=== PATIENT | female | born 1950 | race Caucasian/White ===

== ENCOUNTER → 2016-09-06 | Outpatient (CLI) | payer MEDICARE, BC ==
--- NOTE | 2016-09-07 10:18 | MM ---
Reason for exam: screening (asymptomatic). Last mammogram was performed 1 year and 1 month ago. History: Patient is postmenopausal and is nulliparous. 2 excisional biopsies of the left breast. 2 excisional biopsies of the right breast. Took estrogen for 7 years beginning at age 31. Physical Findings: A clinical breast exam by your physician is recommended on an annual basis and results should be correlated with mammographic findings. MG 3D Screening Mammo W/Cad Bilateral CC and MLO view(s) were taken. Prior study comparison: August 16, 2015, bilateral MG screening mammo w CAD. July 21, 2014, bilateral MG screening mammo w CAD. The breast tissue is heterogeneously dense. This may lower the sensitivity of mammography. Finding: There are typically benign calcifications. There is no discrete abnormality. No significant changes in finding since August 16, 2015 and July 21, 2014. ASSESSMENT: Benign, BI-RAD 2 RECOMMENDATION: Routine screening mammogram of both breasts in 1 year.
== END | disposition home or self-care (01) ==
LOC: RADMAMWWP 10:03
PROVIDERS: ATTEND Internal Medicine Critical Care Medicine
DX: Z12.31 Encounter for screening mammogram for malignant neoplasm of breast (principal)
CPT/HCPCS: 77052; 77063; G0202

== ENCOUNTER → 2016-11-07 | Outpatient (CLI) | payer MEDICARE, BC ==
[2016-11-07 10:04] LABS: CH 31.7; CHCM 33.7; HCT 41.1 % (34.0-46.0); HDW 2.89; HGB 13.9 gm/dL (11.4-16.0); MCH 32.1 pg (25.0-35.0); MCHC 33.9 g/dL (31.0-37.0); MCV 94.4 fL (80.0-100.0); Mean Platelet Volume 7.8; RBC 4.35 m/uL (3.80-5.40); RDW 14.6 % (11.5-15.5)
[2016-11-07 10:20] LABS: ALT 23 U/L (9-52); AST 22 U/L (14-36); Alkaline Phosphatase 70 U/L (38-126); Anion Gap 12 mmol/L; Blood Urea Nitrogen 20 mg/dL (7-17); Calcium 9.9 mg/dL (8.4-10.2); Carbon Dioxide 27 mmol/L (22-30); Chloride 106 mmol/L (98-107); Cholesterol 213 mg/dL (<200); Glucose 87 mg/dL (74-99); HDL Cholesterol 61 mg/dL (40-60); Non-African American GFR(MDRD) >60 (>60 ml/min/1.73 sqM); Potassium 4.5 mmol/L (3.5-5.1); Sodium 145 mmol/L (137-145); Total Bilirubin 0.9 mg/dL (0.2-1.3); Total Protein 6.6 g/dL (6.3-8.2); Triglycerides 130 mg/dL (<150)
[2016-11-07 11:57] LABS: Hemoglobin A1C 4.8 % (4.2-6.1)
== END ==
LOC: LABWHC1 09:20
PROVIDERS: ATTEND Internal Medicine Critical Care Medicine
DX: D86.9 Sarcoidosis, unspecified (principal)
CPT/HCPCS: 36415; 80053; 80061; 82306; 83036; 84439; 84443; 85027

== ENCOUNTER → 2017-12-25 | Outpatient (CLI) | payer MEDICARE, BC ==
--- NOTE | 2017-12-26 08:33 | MM ---
Reason for exam: screening (asymptomatic). Last mammogram was performed 1 year and 4 months ago. History: Patient is postmenopausal and is nulliparous. 2 excisional biopsies of the left breast. 2 excisional biopsies of the right breast. Took estrogen for 7 years beginning at age 31. Physical Findings: A clinical breast exam by your physician is recommended on an annual basis and results should be correlated with mammographic findings. MG 3D Screening Mammo W/Cad Bilateral CC and MLO view(s) were taken. Prior study comparison: September 06, 2016, bilateral MG 3d screening mammo w/cad. August 16, 2015, bilateral MG screening mammo w CAD. The breast tissue is heterogeneously dense. This may lower the sensitivity of mammography. Benign calcifications bilaterally. ASSESSMENT: Benign, BI-RAD 2 RECOMMENDATION: Routine screening mammogram of both breasts in 1 year.
== END | disposition home or self-care (01) ==
LOC: RADMAMWWP 12:40
PROVIDERS: ATTEND Internal Medicine Critical Care Medicine
DX: Z12.31 Encounter for screening mammogram for malignant neoplasm of breast (principal)
CPT/HCPCS: 77063; 77067

== ENCOUNTER → 2019-02-20 | Outpatient (CLI) | payer MEDICARE, BC ==
--- NOTE | 2019-02-20 16:45 | CT ---
EXAMINATION TYPE: CT brain wo con DATE OF EXAM: 02/20/2019 COMPARISON: 05/15/2016 HISTORY: CVA. CT DLP: 1051.4 mGycm Automated exposure control for dose reduction was used. FINDINGS: There is mild cerebral cortical atrophy. There is no mass effect nor midline shift. There is no sign of intracranial hemorrhage. Calvarium is intact. There is mild patchy hypodensity in the cerebral whi te matter. IMPRESSION: MILD ATROPHY. CHRONIC SMALL VESSEL ISCHEMIA. NO SIGNIFICANT CHANGE COMPARED TO OLD EXAM.
== END | disposition home or self-care (01) ==
LOC: RADCTMAIN 16:03
PROVIDERS: ATTEND Internal Medicine Critical Care Medicine
DX: G31.9 Degenerative disease of nervous system, unspecified (principal); I67.82 Cerebral ischemia
CPT/HCPCS: 70450

== ENCOUNTER → 2019-04-28 | Outpatient (CLI) | payer MEDICARE, BC ==
[2019-04-28 09:19] LABS: Basophils % (A) 1 %; Eosinophils # (A) 0.2 k/uL (0-0.7); Eosinophils % (A) 4 %; HCT 40.4 % (34.0-46.0); HGB 13.6 gm/dL (11.4-16.0); Lymphocytes # (A) 0.8 k/uL (1.0-4.8); Lymphocytes % (A) 14 %; MCH 34.4 pg (25.0-35.0); MCHC 33.7 g/dL (31.0-37.0); MCV 102.2 fL (80.0-100.0); Macrocytosis Slight; Mean Platelet Volume 7.6; Monocytes # (A) 0.3 k/uL (0-1.0); Monocytes % (A) 6 %; Neutrophils % (A) 74 %; Platelet Count 205 k/uL (150-450); RBC 3.95 m/uL (3.80-5.40); RDW 15.2 % (11.5-15.5); WBC 5.4 k/uL (3.8-10.6)
[2019-04-28 17:53] LABS: African American GFR (CKD) 87.2 (60.0-200.0); Albumin 3.9 g/dL (3.80-4.90); Albumin/Globulin Ratio 2.29 (1.60-3.17); Anion Gap 6.6 mmol/L (4.00-12.00); Calcium 9.6 mg/dL (8.7-10.3); Carbon Dioxide 30.4 mmol/L (21.6-31.8); Chol/HDL Ratio 4.42; Globulin 1.7 g/dL (1.6-3.3); LDL Cholesterol,Calculated 124.2 mg/dL (0.0-131.0); Potassium 4.4 mmol/L (3.5-5.5); Total Bilirubin 0.9 mg/dL (0.2-1.2); Total Protein 5.6 g/dL (6.2-8.2); VLDL Calculation 29.8 mg/dL (5.00-40.00)
== END | disposition home or self-care (01) ==
LOC: LABWHC1 07:59
PROVIDERS: ATTEND Internal Medicine Critical Care Medicine
DX: M81.0 Age-related osteoporosis without current pathological fracture (principal); L40.50 Arthropathic psoriasis, unspecified; D86.9 Sarcoidosis, unspecified; M45.9 Ankylosing spondylitis of unspecified sites in spine
CPT/HCPCS: 36415; 80053; 80061; 85025

== ENCOUNTER 2020-02-24 17:56 | Inpatient (IN) | payer MEDICARE, BC ==
[2020-02-24] MEDS ORDERED: diphenhydrAMINE 50 MG/ML 1 ML VIAL IVP STA (19:01)
[2020-02-24] MEDS ORDERED: FAMOTIDINE 20 MG/2 ML VIAL IV STA (19:01)
[2020-02-24] MEDS ORDERED: methylPREDNISolone SOD SUCCI 125 MG/2 ML VIAL IV STA (19:01)
[2020-02-24] MEDS ORDERED: ALBUTEROL NEBULIZED 2.5 MG/3 ML INHALATION STA (19:01)
[2020-02-24 19:19] LABS: ALT 14 U/L (4-34); AST 35 U/L (14-36); African American GFR (CKD) >90 (>60 ml/min/1.73 sqM); Albumin 3.8 g/dL (3.5-5.0); Alkaline Phosphatase 93 U/L (38-126); Anion Gap 10 mmol/L; Blood Urea Nitrogen 16 mg/dL (7-17); Calcium 9.7 mg/dL (8.4-10.2); Carbon Dioxide 24 mmol/L (22-30); Chloride 103 mmol/L (98-107); Creatine Kinase 33 U/L (30-135); Glucose 119 mg/dL (74-99); Magnesium 2.2 mg/dL (1.6-2.3); Non-African American GFR(CKD) 88 (>60 ml/min/1.73 sqM); Potassium 4.4 mmol/L (3.5-5.1); Sodium 137 mmol/L (137-145); Total Bilirubin 0.8 mg/dL (0.2-1.3); Total Protein 6.7 g/dL (6.3-8.2)
[2020-02-24 19:21] LABS: Basophils # (A) 0.1 k/uL (0-0.2); Basophils % (A) 1 %; Eosinophils # (A) 0.2 k/uL (0-0.7); Eosinophils % (A) 3 %; HCT 41.4 % (34.0-46.0); HGB 12.9 gm/dL (11.4-16.0); Lymphocytes # (A) 0.6 k/uL (1.0-4.8); Lymphocytes % (A) 8 %; MCH 32.4 pg (25.0-35.0); MCV 104.4 fL (80.0-100.0); Macrocytosis Slight; Mean Platelet Volume 8.4; Monocytes # (A) 0.4 k/uL (0-1.0); Monocytes % (A) 6 %; Neutrophils # (A) 5.8 k/uL (1.3-7.7); Neutrophils % (A) 81 %; Platelet Count 198 k/uL (150-450); RBC 3.97 m/uL (3.80-5.40); RDW 13.7 % (11.5-15.5); WBC 7.2 k/uL (3.8-10.6)
[2020-02-24 19:26] LABS: Partial Thromboplastin Time 26.1 sec (22.0-30.0); Prothrombin Time 10.6 sec (9.0-12.0)
--- NOTE | 2020-02-24 19:32 | XR ---
EXAMINATION TYPE: XR chest 2V DATE OF EXAM: 02/24/2020 COMPARISON: 12/12/2016 HISTORY: Cough difficulty breathing TECHNIQUE: FINDINGS: Heart is slightly enlarged. There is pulmonary vascular congestion and blunting of costophr enic angles. There is some pulmonary interstitial edema. Bony thorax is intact. IMPRESSION: Congestive heart failure with pleural effusions appears new compared to old exam.
[2020-02-24 19:42] LABS: D-Dimer 1.04 mg/L FEU (<0.60)
--- NOTE | 2020-02-24 19:56 | ED ---
SOB HPI - General Chief Complaint: Shortness of Breath Stated Complaint: poss allergic rxn Time Seen by Provider: 02/24/20 18:24 Source: patient Mode of arrival: ambulatory Limitations: no limitations - History of Present Illness Initial Comments: The patient is a 69-year-old female presents to the emergency department with reported possible acute ALLERGIC reaction. She states that she has migraine headaches and sees Dr. Fall. He prescribes her [place]. She states that last night she was having a headache and therefore took a [place]. Around 3 AM she had acute onset of shortness of breath. She thought it was secondary to medication reaction and therefore took Benadryl. She woke this morning and continued to be short of breath. She called the pharmacy as this was the first tablet of [place] that she had taken from this prescription. Pharmacist had told her that the [place] had a dye on it and because of her dye ALLERGY she was having an ALLERGIC reaction. Indicated that she did go to the emergency room for further evaluation. Patient denies rash or the sensation that her airway is closing off. Admits to a pressure in her chest. Denies previous history of cardiac disease or pulmonary disease. Does admit to a history of a "blood clot" in her left foot several years ago however did not require any anticoagulation. She denies anaphylaxis to any of her medications listed on her ALLERGY list. There are no other alleviating, precipitating or modifying factors - Related Data Home Medications Medication Instructions Recorded Confirmed Diazepam [Valium] 10 mg PO Q8H PRN 05/15/16 02/24/20 HYDROcodone/APAP 7.5-325MG [[place] 1 - 2 tab PO Q6H PRN 05/15/16 02/24/20 7.5-325] diphenhydrAMINE [Benadryl] 25 mg PO Q4H PRN 02/24/20 02/24/20 Allergies Allergy/AdvReac Type Severity Reaction Status Date / Time egg Allergy Severe Shortness Verified 02/27/20 08:58 of Breath acetaminophen Allergy Unknown Verified 02/24/20 18:48 [From Darvocet-N] adhesive tape Allergy Unknown Verified 02/24/20 18:48 ampicillin Allergy Unknown Verified 02/24/20 18:48 cefaclor [From Ceclor] Allergy Unknown Verified 02/24/20 18:48 cefuroxime axetil Allergy Unknown Verified 02/24/20 18:48 [From Ceftin] ciprofloxacin [From Cipro] Allergy Unknown Verified 02/24/20 18:48 ciprofloxacin HCl Allergy Unknown Verified 02/24/20 18:48 [From Cipro] clarithromycin [From Biaxin] Allergy Unknown Verified 02/24/20 18:48 codeine phosphate Allergy Unknown Verified 02/24/20 18:48 [From Tylenol-Codeine #3] erythromycin base Allergy Unknown Verified 02/24/20 18:48 etodolac [From Lodine] Allergy Unknown Verified 02/24/20 18:48 fluticasone propionate Allergy Unknown Verified 02/24/20 18:48 [From Flovent Diskus] hydroxychloroquine sulfate Allergy Unknown Verified 02/24/20 18:48 [From Plaquenil] ibuprofen [From Motrin] Allergy Unknown Verified 02/24/20 18:48 indapamide [From Lozol] Allergy Unknown Verified 02/24/20 18:48 infliximab [From Remicade] Allergy Unknown Verified 02/24/20 18:48 Influenza Virus Vaccines Allergy Unknown Verified 02/24/20 18:48 ketorolac tromethamine Allergy Unknown Verified 02/24/20 18:48 [From Toradol] lanolin Allergy Unknown Verified 02/24/20 18:48 lansoprazole [From Prevacid] Allergy Unknown Verified 02/24/20 18:48 levofloxacin [From Levaquin] Allergy Unknown Verified 02/24/20 18:48 loracarbef [From Lorabid] Allergy Unknown Verified 02/24/20 18:48 lorazepam [From Ativan] Allergy Unknown Verified 02/24/20 18:48 methotrexate Allergy Unknown Verified 02/24/20 18:48 montelukast sodium Allergy Unknown Verified 02/24/20 18:48 [From Singulair] naproxen [From Naprosyn] Allergy Unknown Verified 02/24/20 18:48 paroxetine HCl [From Paxil] Allergy Unknown Verified 02/24/20 18:48 Penicillins Allergy Unknown Verified 02/24/20 18:48 pentazocine lactate Allergy Unknown Verified 02/24/20 18:48 [From Talwin] phenol [From Chloraseptic] Allergy Unknown Verified 02/24/20 18:48 pirbuterol acetate Allergy Unknown Verified 02/24/20 18:48 [From [employer]] pneumococcal vaccine Allergy Unknown Verified 02/24/20 18:48 pregabalin [From Lyrica] Allergy Unknown Verified 02/24/20 18:48 propoxyphene napsylate Allergy Unknown Verified 02/24/20 18:48 [From Darvocet-N] red dye Allergy Dyspnea Verified 02/24/20 18:48 rofecoxib [From Vioxx] Allergy Unknown Verified 02/24/20 18:48 salmeterol xinafoate Allergy Unknown Verified 02/24/20 18:48 [From Serevent] sodium phenolate Allergy Unknown Verified 02/24/20 18:48 [From Chloraseptic] Sulfa (Sulfonamide Allergy Unknown Verified 02/24/20 18:48 Antibiotics) sulfamethoxazole Allergy Unknown Verified 02/24/20 18:48 [From Bactrim] tramadol HCl [From Ultracet] Allergy Unknown Verified 02/24/20 18:48 trimethoprim [From Bactrim] Allergy Unknown Verified 02/24/20 18:48 yellow dye Allergy Dyspnea Verified 02/24/20 18:48 Review of Systems ROS Statement: Those systems with pertinent positive or pertinent negative responses have been documented in the HPI. ROS Other: All systems not noted in ROS Statement are negative. Past Medical History Past Medical History: Asthma Additional Past Medical History / Comment(s): back pain. Psoriasis. Pham syndrome. Degenerate disc disease. Psoriatic Arthritis. Spondilitis Ankylosis. Sarcoidosis. RA. Paralyzed left vocal cord. History of Any Multi-Drug Resistant Organisms: None Reported Past Surgical History: Back Surgery, Breast Surgery, Hysterectomy Additional Past Surgical History / Comment(s): Back fusion.epidural injections. Hiatal hernia repair. Lumps removed from bilateral breast. Bilateral varicose bein removal. Colonoscopy. Past Anesthesia/Blood Transfusion Reactions: Postoperative Nausea & Vomiting (PO NV) Past Psychological History: No Psychological Hx Reported Smoking Status: Never smoker Past Alcohol Use History: None Reported Past Drug Use History: None Reported - Past Family History Mother Family Medical History: Renal Disease Father Family Medical History: Diabetes Mellitus General Exam Limitations: no limitations General appearance: alert, in no apparent distress Head exam: Present: atraumatic, normocephalic, normal inspection Eye exam: Present: normal appearance, PERRL, EOMI. Absent: scleral icterus, conjunctival injection, periorbital swelling ENT exam: Present: normal exam, mucous membranes moist Neck exam: Present: normal inspection. Absent: tenderness, meningismus, lymphadenopathy Respiratory exam: Present: rales, accessory muscle use, other (tachypnia). Absent: respiratory distress, wheezes, rhonchi, stridor Cardiovascular Exam: Present: normal rhythm, tachycardia, normal heart sounds. Absent: systolic murmur, diastolic murmur, rubs, gallop, clicks GI/Abdominal exam: Present: soft, normal bowel sounds. Absent: distended, tenderness, guarding, rebound, rigid Extremities exam: Present: normal inspection, full ROM, normal capillary refill. Absent: tenderness, pedal edema, joint swelling, calf tenderness Back exam: Present: normal inspection Neurological exam: Present: alert, oriented X3, CN II-XII intact Psychiatric exam: Present: normal affect, normal mood Skin exam: Present: warm, dry, intact, normal color. Absent: rash Course Vital Signs 02/24/20 02/24/20 02/24/20 17:59 18:38 19:15 Temperature 98.4 F Pulse Rate 117 H 105 H Respiratory 20 22 16 Rate Blood Pressure 123/79 118/71 O2 Sat by Pulse 94 L 95 Oximetry 02/24/20 02/24/20 02/24/20 20:27 20:37 20:53 Temperature Pulse Rate 109 H 117 H 103 H Respiratory 16 16 16 Rate Blood Pressure 110/69 106/73 116/77 O2 Sat by Pulse 95 94 L 93 L Oximetry - Reevaluation(s) Reevaluation #1: EKG obtained at 19:30. Discussion with patient in regards to abnormal EKG with concerning for IA. Patient adamant that she has to go home to take care of her . Discussed the need with patient to be hospitalized with possible cardiac catheterization. After risks of not remaining hospitalist were discussed with the patient she finally agreed to attempt to find someone to care for her . Cardiology paged at [phone]. Reevaluation #2: 02/24/20 20:[address] Lundberg in regards to the patient's symptoms. EKG being faxed to him Reevaluation #3: Discussed case with Dr. Sosa. He recommended heparinizing the patient and given aspirin. Recommended lasix. States 02/24/20 20:33 Procedures - [place] Protocol (Time Out) Nurse: Ary Woodruff Medical Decision Making - Medical Decision Making Upon arrival the patient is placed into room 13. A thorough history and physical exam was performed. Patient reports to ALLERGIC reaction however she has no oral swelling or rash. The patient is hypoxic and tachycardic. Because of her reported history of DVT I did request to perform further studies for which the patient did agree. I did provide her with 125 mg of Solu-Medrol, 25 mg of Benadryl and 20 of Pepcid. I was going to provide the patient with a breathing treatment however she reports ALLERGY to albuterol. Laboratory studies were conducted. I did receive an EKG on the patient which was abnormal and immediately called Dr. Davis. I discussed the laboratory studies for which the patient does have an elevated d-dimer 1.04, troponin of 1.3 and BNP of 12,400. CT was performed as there is concern for PE which demonstrates no evidence of pulmonary embolism. Pleural effusions with pulmonary interstitial edema. I discussed the case once again with Dr. Davis. Because of the persistence of her chest discomfort I did discuss catheterization with the patient. She is reluctant stating that she has a spouse at home who is unable to take care of himself. I did discuss the severity of the matter with the patient who did agree for hospitalization and possible cardiac catheterization. Dr. Davis does agree to cath the patient tonight. I discussed the case with Dr. Lopez and Dr. Bragg. Patient received 40 mg of Lasix, 4 chewable aspirins and heparin prior to transfer to the [facility]. Patient does have a pork ALLERGY however reports that it causes her to have upset stomach and denies anaphylaxis therefore I do believe the benefits of administrating medication outweigh the risks. The patient did agree to this treatment plan she was taken to the [facility] in hemodynamically stable condition - Lab Data Result diagrams: 03/01/20 04:04 03/01/20 04:04 Lab Results 02/24/20 02/24/20 02/24/20 Range/Units 18:34 19:01 19:01 WBC 7.2 (3.8-10.6) k/uL RBC 3.97 (3.80-5.40) m/uL Hgb 12.9 (11.4-16.0) gm/dL Hct 41.4 (34.0-46.0) % MCV 104.4 H (80.0-100.0) fL MCH 32.4 (25.0-35.0) pg MCHC 31.0 (31.0-37.0) g/dL RDW 13.7 (11.5-15.5) % Plt Count 198 (150-450) k/uL Neutrophils % 81 % Lymphocytes % 8 % Monocytes % 6 % Eosinophils % 3 % Basophils % 1 % Neutrophils # 5.8 (1.3-7.7) k/uL Lymphocytes # 0.6 L (1.0-4.8) k/uL Monocytes # 0.4 (0-1.0) k/uL Eosinophils # 0.2 (0-0.7) k/uL Basophils # 0.1 (0-0.2) k/uL Macrocytosis Slight PT 10.6 (9.0-12.0) sec INR 1.0 (<1.2) APTT 26.1 (22.0-30.0) sec D-Dimer 1.04 H (<0.60) mg/L FEU Sodium 137 (137-145) mmol/L Potassium 4.4 (3.5-5.1) mmol/L Chloride 103 (98-107) mmol/L Carbon Dioxide 24 (22-30) mmol/L Anion Gap 10 mmol/L BUN 16 (7-17) mg/dL Creatinine 0.70 (0.52-1.04) mg/dL Est GFR (CKD-EPI)AfAm >90 (>60 ml/min/1.73 sqM) Est GFR (CKD-EPI)NonAf 88 (>60 ml/min/1.73 sqM) Glucose 119 H (74-99) mg/dL Plasma Lactic Acid James (0.7-2.0) mmol/L Calcium 9.7 (8.4-10.2) mg/dL Magnesium 2.2 (1.6-2.3) mg/dL Total Bilirubin 0.8 (0.2-1.3) mg/dL AST 35 (14-36) U/L ALT 14 (4-34) U/L Alkaline Phosphatase 93 (38-126) U/L Creatine Kinase 33 (30-135) U/L Troponin I (0.000-0.034) ng/mL NT-Pro-B Natriuret Pep pg/mL Total Protein 6.7 (6.3-8.2) g/dL Albumin 3.8 (3.5-5.0) g/dL 02/24/20 02/24/20 02/24/20 Range/Units 19:01 19:01 19:01 WBC (3.8-10.6) k/uL RBC (3.80-5.40) m/uL Hgb (11.4-16.0) gm/dL Hct (34.0-46.0) % MCV (80.0-100.0) fL MCH (25.0-35.0) pg MCHC (31.0-37.0) g/dL RDW (11.5-15.5) % Plt Count (150-450) k/uL Neutrophils % % Lymphocytes % % Monocytes % % Eosinophils % % Basophils % % Neutrophils # (1.3-7.7) k/uL Lymphocytes # (1.0-4.8) k/uL Monocytes # (0-1.0) k/uL Eosinophils # (0-0.7) k/uL Basophils # (0-0.2) k/uL Macrocytosis PT (9.0-12.0) sec INR (<1.2) APTT (22.0-30.0) sec D-Dimer (<0.60) mg/L FEU Sodium (137-145) mmol/L Potassium (3.5-5.1) mmol/L Chloride (98-107) mmol/L Carbon Dioxide (22-30) mmol/L Anion Gap mmol/L BUN (7-17) mg/dL Creatinine (0.52-1.04) mg/dL Est GFR (CKD-EPI)AfAm (>60 ml/min/1.73 sqM) Est GFR (CKD-EPI)NonAf (>60 ml/min/1.73 sqM) Glucose (74-99) mg/dL Plasma Lactic Acid James 1.4 (0.7-2.0) mmol/L Calcium (8.4-10.2) mg/dL Magnesium (1.6-2.3) mg/dL Total Bilirubin (0.2-1.3) mg/dL AST (14-36) U/L ALT (4-34) U/L Alkaline Phosphatase (38-126) U/L Creatine Kinase (30-135) U/L Troponin I 1.370 H* (0.000-0.034) ng/mL NT-Pro-B Natriuret Pep 34954 pg/mL Total Protein (6.3-8.2) g/dL Albumin (3.5-5.0) g/dL - EKG Data EKG Comments: EKG at 1930 demonstrates a sinus tachycardia with a ventricular rate of 108. AR interval 160. QRS 80. QTC of 431. Appears to be some ST segment elevation in V2 through V4. Inverted T-wave in aVL and 1. Also inverted T waves with some ST depression in V5 and V6 EKG at 2007 demonstrates continued sinus tachycardia with a ventricular rate of 109. When necessary of 166. QRS 90. QTC of 433. She needs to have mild el evation of the 2 through V4. Q waves present in these leads. Inverted T waves in 1, aVL and V5V6 Critical Care Time Critical Care Time: Yes Critical Care Time: 55 minutes Disposition Clinical Impression: Congestive heart failure, NSTEMI (non-ST elevated myocardial infarction) Disposition: ADMITTED IP TO THIS [facility] Condition: Serious Is patient prescribed a controlled substance at d/c from ED?: No Decision to Admit Reason: Admit from EC Decision Date: 02/24/20 Decision Time: 21:02
--- NOTE | 2020-02-24 20:21 | CT ---
EXAMINATION TYPE: CT chest angio for PE DATE OF EXAM: 02/24/2020 COMPARISON: CT chest 09/26/2011 HISTORY: SOB, elevated d-dimer CT DLP: 252.9 mGycm Automated exposure control for dose reduction was used. CONTRAST: Performed with IV Contrast, patient injected with 70 mL of Isovue 300. Multiple axial sections were obtained from the thoracic inlet to the diaphragm with IV contrast. Ther e are 3-D post processed images. There are bilateral pleural effusions. Heart is slightly enlarged. There are some enlarged anterior m ediastinal lymph nodes up to 1.5 cm. There is pulmonary interstitial edema and interstitial infiltrat e in the lower lung gutierrez. There are subcarinal lymph nodes up to 1.5 cm. There is no evidence of filling defect in the pulmonary arteries. Thoracic aorta shows no evidence of aneurysm or dissection. There is some mild spurring in the thoracic spine. There is no compression f racture. There is mild thoracic dextroscoliosis. IMPRESSION: No evidence of pulmonary embolism. Pleural effusions with pulmonary interstitial edema that would be consistent with congestive heart failure. Pleural fluid and infiltrates are new compared to old exam. There are enlarged mediastinal lymph nodes similar to old exam.
[2020-02-24] MEDS ORDERED: ASPIRIN 81 MG PO STA (20:24)
[2020-02-24] MEDS ORDERED: FUROSEMIDE 10 MG/ML 4 ML VIAL IV STA (20:38)
[2020-02-24] MEDS ORDERED: HEPARIN SODIUM,PORCINE 5,000 UNIT/ML 1 ML VIAL IV ONE (20:42)
[2020-02-24] MEDS: HEPARIN SOD,PORK IN 0.45% NACL 25,000 UNIT in 0.45% NACL 1 250ML.BAG IV SCH (20:47)
[2020-02-24] MEDS ORDERED: LIDOCAINE 1% INJ 10MG/ML (20 ML MDV) ONE (21:08)
[2020-02-24] MEDS ORDERED: IV FLUID CONTINUATION 500 ML IV ONE (21:10)
[2020-02-24] MEDS ORDERED: NALOXONE 0.4 MG/ML 1 ML VIAL IV PRN (21:20)
[2020-02-24] MEDS ORDERED: BIVALIRUDIN BOLUS 250 MG/50 ML IV ONE (21:20)
[2020-02-24] MEDS ORDERED: LIDOCAINE 1% INJ 10MG/ML (20 ML MDV) SQ ONE (21:23)
[2020-02-24] MEDS ORDERED: BIVALIRUDIN 250 MG in SODIUM CHLORIDE 0.9% 50 ML IV ONE (21:40)
[2020-02-24 21:46] LABS: ABG HCO3 25 mmol/L (21-25); ABG PCO2 36 mmHg (35-45); ABG PH 7.46 (7.35-7.45); ABG PO2 73 mmHg (83-108); Allen Test Performed? Yes
--- NOTE | 2020-02-24 21:48 | P.CRDCN ---
History of Present Illness Consult date: 02/24/20 History of present illness: This is a 69-year-old female with no significant past medical history except multiple ALLERGIES and back pains, has been having intermittent chest tightness for the last month. Usually the symptoms lasted about 15 minutes and then subsided spontaneously. Last night she claimed the Pain lasted all night associated with some shortness of breath. Patient took [place] for pain and she thought she was having ALLERGIC reaction. Finally patient came to the emergency room. Initially it was felt that patient was having ALLERGIC reaction. Her EKG however showed Q waves in the anterior leads with mild ST elevations in V1, V2. She had some chest tightness on arrival but apparently was relieved after giving some aspirin. Her chest x-ray showed evidence of pulmonary edema. Computed tomography scan also showed evidence of pulmonary edema and pleural effusions. There is no evidence of pulmonary emboli. In view of EKG changes and abnormal troponin and intermittent symptoms, it is felt that we're dealing with a subacute anterior wall ME resulting in CHF with some ongoing symptoms. After some deliberation, it is felt that a catheterization for definitive diagnosis and further intervention as needed. At the time of his evaluation of chest pain is mostly resolved and has been going on but more than 12 hours Review of Systems As per the chart Past Medical History Past Medical History: Asthma Additional Past Medical History / Comment(s): back pain. Psoriasis. Pham syndrome. Degenerate disc disease. Psoriatic Arthritis. Spondilitis Ankylosis. Sarcoidosis. RA. Paralyzed left vocal cord. History of Any Multi-Drug Resistant Organisms: None Reported Past Surgical History: Back Surgery, Breast Surgery, Hysterectomy Additional Past Surgical History / Comment(s): Back fusion.epidural injections. Hiatal hernia repair. Lumps removed from bilateral breast. Bilateral varicose bein removal. Colonoscopy. Past Anesthesia/Blood Transfusion Reactions: Postoperative Nausea & Vomiting (PONV) Past Psychological History: No Psychological Hx Reported Smoking Status: Never smoker Past Alcohol Use History: None Reported Past Drug Use History: None Reported - Past Family History Mother Family Medical History: Renal Disease Father Family Medical History: Diabetes Mellitus Medications and Allergies Home Medications Medication Instructions Recorded Confirmed Type Diazepam [Valium] 10 mg PO Q8H PRN 05/15/16 02/24/20 History HYDROcodone/APAP 7.5-325MG [[place] 1 - 2 tab PO Q6H PRN 05/15/16 02/24/20 History 7.5-325] diphenhydrAMINE [Benadryl] 25 mg PO Q4H PRN 02/24/20 02/24/20 History Allergies Allergy/AdvReac Type Severity Reaction Status Date / Time acetaminophen Allergy Unknown Verified 02/24/20 18:48 [From Darvocet-N] adhesive tape Allergy Unknown Verified 02/24/20 18:48 ampicillin Allergy Unknown Verified 02/24/20 18:48 Beef Containing Products Allergy Unknown Verified 02/24/20 18:48 [Beef] cefaclor [From Ceclor] Allergy Unknown Verified 02/24/20 18:48 cefuroxime axetil Allergy Unknown Verified 02/24/20 18:48 [From Ceftin] ciprofloxacin [From Cipro] Allergy Unknown Verified 02/24/20 18:48 ciprofloxacin HCl Allergy Unknown Verified 02/24/20 18:48 [From Cipro] clarithromycin [From Biaxin] Allergy Unknown Verified 02/24/20 18:48 codeine phosphate Allergy Unknown Verified 02/24/20 18:48 [From Tylenol-Codeine #3] erythromycin base Allergy Unknown Verified 02/24/20 18:48 etodolac [From Lodine] Allergy Unknown Verified 02/24/20 18:48 fluticasone propionate Allergy Unknown Verified 02/24/20 18:48 [From Flovent Diskus] hydroxychloroquine sulfate Allergy Unknown Verified 02/24/20 18:48 [From Plaquenil] ibuprofen [From Motrin] Allergy Unknown Verified 02/24/20 18:48 indapamide [From Lozol] Allergy Unknown Verified 02/24/20 18:48 infliximab [From Remicade] Allergy Unknown Verified 02/24/20 18:48 Influenza Virus Vaccines Allergy Unknown Verified 02/24/20 18:48 ketorolac tromethamine Allergy Unknown Verified 02/24/20 18:48 [From Toradol] lanolin Allergy Unknown Verified 02/24/20 18:48 lansoprazole [From Prevacid] Allergy Unknown Verified 02/24/20 18:48 levofloxacin [From Levaquin] Allergy Unknown Verified 02/24/20 18:48 loracarbef [From Lorabid] Allergy Unknown Verified 02/24/20 18:48 lorazepam [From Ativan] Allergy Unknown Verified 02/24/20 18:48 methotrexate Allergy Unknown Verified 02/24/20 18:48 Milk Containing Products Allergy Unknown Verified 02/24/20 18:48 [Dairy] montelukast sodium Allergy Unknown Verified 02/24/20 18:48 [From Singulair] naproxen [From Naprosyn] Allergy Unknown Verified 02/24/20 18:48 paroxetine HCl [From Paxil] Allergy Unknown Verified 02/24/20 18:48 Penicillins Allergy Unknown Verified 02/24/20 18:48 pentazocine lactate Allergy Unknown Verified 02/24/20 18:48 [From Talwin] phenol [From Chloraseptic] Allergy Unknown Verified 02/24/20 18:48 pirbuterol acetate Allergy Unknown Verified 02/24/20 18:48 [From [employer]air [employer]] pneumococcal vaccine Allergy Unknown Verified 02/24/20 18:48 Pork/Porcine Containing Allergy Unknown Verified 02/24/20 18:48 Products [Pork] pregabalin [From Lyrica] Allergy Unknown Verified 02/24/20 18:48 propoxyphene napsylate Allergy Unknown Verified 02/24/20 18:48 [From Darvocet-N] red dye Allergy Dyspnea Verified 02/24/20 18:48 rofecoxib [From Vioxx] Allergy Unknown Verified 02/24/20 18:48 salmeterol xinafoate Allergy Unknown Verified 02/24/20 18:48 [From Serevent] sodium phenolate Allergy Unknown Verified 02/24/20 18:48 [From Chloraseptic] Sulfa (Sulfonamide Allergy Unknown Verified 02/24/20 18:48 Antibiotics) sulfamethoxazole Allergy Unknown Verified 02/24/20 18:48 [From Bactrim] tramadol HCl [From Ultracet] Allergy Unknown Verified 02/24/20 18:48 trimethoprim [From Bactrim] Allergy Unknown Verified 02/24/20 18:48 wheat Allergy Unknown Verified 02/24/20 18:48 yellow dye Allergy Dyspnea Verified 02/24/20 18:48 Physical Exam Vitals: Vital Signs Temp Pulse Resp BP Pulse Ox 02/24/20 20:53 103 H 16 116/77 93 L 02/24/20 20:37 117 H 16 106/73 94 L 02/24/20 20:27 109 H 16 110/69 95 02/24/20 19:15 105 H 16 118/71 95 02/24/20 18:38 22 02/24/20 17:59 98.4 F 117 H 20 123/79 94 L Intake and Output 02/24/20 02/24/20 02/24/20 06:59 14:59 22:59 Other: Weight 57.153 kg GENERAL EXAM: Patient is alert and oriented and appears to be in moderate distress HEENT: Normocephalic. Normal reaction of pupils, equal size, normal range of extraocular motion. No erythema or exudates in the throat. NECK: No masses, no nuchal rigidity. CHEST: No chest wall deformity. LUNGS: Diminished breath sounds with few crackles HEART: S1 and S2 normal, tachycardic, short systolic murmur heard at the apex ABDOMEN: No hepatosplenomegaly, normal bowel sounds, no guarding or rigidity. SKIN: No rashes CENTRAL NERVOUS SYSTEM: No focal deficits. EXTREMITIES: No edema Results 02/24/20 18:34 02/24/20 19:01 Cardiac Enzymes 02/24/20 02/24/20 Range/Units 19:01 19:01 AST 35 (14-36) U/L Troponin I 1.370 H* (0.000-0.034) ng/mL Coagulation 02/24/20 Range/Units 19:01 PT 10.6 (9.0-12.0) sec APTT 26.1 (22.0-30.0) sec CBC 02/24/20 Range/Units 18:34 WBC 7.2 (3.8-10.6) k/uL RBC 3.97 (3.80-5.40) m/uL Hgb 12.9 (11.4-16.0) gm/dL Hct 41.4 (34.0-46.0) % Plt Count 198 (150-450) k/uL Comprehensive Metabolic Panel 02/24/20 Range/Units 19:01 Sodium 137 (137-145) mmol/L Potassium 4.4 (3.5-5.1) mmol/L Chloride 103 (98-107) mmol/L Carbon Dioxide 24 (22-30) mmol/L BUN 16 (7-17) mg/dL Creatinine 0.70 (0.52-1.04) mg/dL Glucose 119 H (74-99) mg/dL Calcium 9.7 (8.4-10.2) mg/dL AST 35 (14-36) U/L ALT 14 (4-34) U/L Alkaline Phosphatase 93 (38-126) U/L Total Protein 6.7 (6.3-8.2) g/dL Albumin 3.8 (3.5-5.0) g/dL Current Medications Generic Name Dose Route Start Last Admin Trade Name Freq PRN Reason Stop Dose Admin Heparin Sodium (Porcine) 0 unit 02/24/20 20:42 Heparin IV PER PROTOCOL PRN Low PTT Protocol Heparin Sodium/Sodium Chloride 250 mls @ 6.858 mls/hr 02/24/20 20:45 02/24/20 20:47 25,000 unit/ Sodium Chloride IV 12 units/kg/hr .Q24H CARLEE 6.858 mls/hr Administration Protocol 12 UNITS/KG/HR Naloxone HCl 0.2 mg 02/24/20 21:20 Narcan IV Q2M PRN Opioid Reversal Intake and Output 02/24/20 02/24/20 02/24/20 06:59 14:59 22:59 Other: Weight 57.153 kg Patient Weight 02/25/20 06:59 Weight 57.153 kg 02/24/20 18:34 02/24/20 19:01 EKG Interpretations (text) Sinus rhythm with evidence of anteroseptal ME, probably subacute, with some persistent ST elevations Assessment and Plan (1) Myocardial infarction Current Visit: Yes Status: Acute Code(s): I21.9 - ACUTE MYOCARDIAL I NFARCTION, UNSPECIFIED SNOMED Code(s): 90167026 (2) Acute CHF (congestive heart failure) Current Visit: Yes Status: Acute Code(s): I50.9 - HEART FAILURE, UNSPECIFIED SNOMED Code(s): 67359269 Plan: Procedures cardiac catheterization. Meanwhile continue treating her with nitrates, beta blockers, diuretics and aspirin. Further recommendations will depend upon clinical course. Patient will also be initiated on statins. Prognosis is guarded
--- NOTE | 2020-02-24 21:52 | P.PCN ---
Date of Procedure: 02/24/20 Preoperative Diagnosis: Subacute anterolateral OH Postoperative Diagnosis: Severe triple-vessel disease with total occlusion of the LAD Procedure(s) Performed: Left heart catheterization without left ventriculography Description of Procedure: HISTORY: This is a 69-year-old female with no Sigmund past medical history who was admitted to the hospital with chest pain, shortness of breath, more than 12 hours duration. EKG showed Q waves with some persistent ST elevations in the anterior leads suggestive of subacute OH. Patient also has findings of congestive heart failure. She is advised to have cardiac catheterization for definitive diagnosis CONSENT:I have discussed the risks, benefits and alternative therapies for the above-mentioned procedure and for both sedation/analgesia as well as necessary blood product administration, if indicated, as they pertain to this patient. The patient has indicated understanding and acceptance of the risks and procedures discussed. PROCEDURE: Patient was brought to the lab in a fasting state. Patient was given some IV sedation. The right groin is infiltrated with lidocaine and right femoral artery was entered using Seldinger technique. A 6-Persian catheter was left in place and selective coronary arteriography was performed. Patient tolerated the procedure well. Patient is found to have severe triple-vessel disease including total occlusion of the mid LAD No immediate complications were noted and patient went on to have stent placement of the LAD by Dr. Chase Conscious Sedation: Versed 0mg Fentanyl 0 g Duration 10minutes HEMODYNAMICS: Aortic pressure is about 100/70. The left ventricle end-diastolic pressure was not measured SELECTIVE CORONARY ARTERIOGRAPHY: LEFT MAIN: Normal length with mild disease THE LEFT ANTERIOR DESCENDING CORONARY ARTERY:. This is totally occluded in midportion. The distal LAD seen by collateral flow THE LEFT CIRCUMFLEX AND IS CORONARY ARTERY:. This is a good caliber vessel with a 90 to 95% ostial stenosis THE RIGHT CORONARY ARTERY: 70-80% stenosis in midportion LEFT VENTRICULOGRAPHY:. Not performed FINAL IMPRESSION:, Severe triple-vessel disease including total occlusion of mid LAD PLAN: Proceed with stent placement of the mid LAD. Stage revascularization of other vessels to be considered PROGNOSIS: Guarded
[2020-02-24] MEDS ORDERED: IOPAMIDOL-370 125ML BTL INJ ONE ×2 (22:16)
[2020-02-24] MEDS ORDERED: RX INFO: IV CONTRAST WAS GIVEN 1 EACH MISC MISCELLANE PRN (22:30)
[2020-02-24] MEDS ORDERED: SODIUM CHLORIDE 0.9% 1,000 ML IV SCH (22:30)
[2020-02-24] MEDS ORDERED: HEPARIN SODIUM,PORCINE 5,000 UNIT/ML 1 ML VIAL IV PRN (22:33)
[2020-02-24 23:22] LABS: Glucose,Whole Blood 157 mg/dL (75-99)
[2020-02-24 23:25] LABS: Basophils % (A) 0 %; Eosinophils # (A) 0.1 k/uL (0-0.7); Eosinophils % (A) 1 %; HCT 38.8 % (34.0-46.0); HGB 12.6 gm/dL (11.4-16.0); Hypochromasia Slight; Lymphocytes # (A) 0.3 k/uL (1.0-4.8); Lymphocytes % (A) 5 %; MCH 34.5 pg (25.0-35.0); MCHC 32.6 g/dL (31.0-37.0); MCV 105.7 fL (80.0-100.0); Macrocytosis Moderate; Mean Platelet Volume 8.8; Monocytes # (A) 0.1 k/uL (0-1.0); Monocytes % (A) 2 %; Neutrophils # (A) 4.8 k/uL (1.3-7.7); Neutrophils % (A) 91 %; Platelet Count 176 k/uL (150-450); RBC 3.67 m/uL (3.80-5.40); RDW 13.7 % (11.5-15.5); WBC 5.3 k/uL (3.8-10.6)
[2020-02-24 23:44] LABS: INR 2.2 (<1.2); Prothrombin Time 21.6 sec (9.0-12.0)
[2020-02-25 00:18] LABS: Partial Thromboplastin Time 141.9 sec (22.0-30.0)
[2020-02-25] MEDS: HEPARIN SOD,PORK IN 0.45% NACL 25,000 UNIT in 0.45% NACL 1 250ML.BAG IV SCH (01:09)
[2020-02-25] MEDS ORDERED: diphenhydrAMINE 25 MG CAP PO STA (02:39)
[2020-02-25 03:29] LABS: Cholesterol 165 mg/dL (<200); HDL Cholesterol 39 mg/dL (40-60); LDL Cholesterol,Calculated 114 mg/dL (0-99); Triglycerides 62 mg/dL (<150)
[2020-02-25 05:03] LABS: Basophils % (A) 0 %; Eosinophils % (A) 1 %; HCT 37.2 % (34.0-46.0); HGB 11.8 gm/dL (11.4-16.0); Hypochromasia Slight; Lymphocytes # (A) 0.3 k/uL (1.0-4.8); Lymphocytes % (A) 8 %; MCH 33.5 pg (25.0-35.0); MCHC 31.8 g/dL (31.0-37.0); MCV 105.4 fL (80.0-100.0); Macrocytosis Moderate; Mean Platelet Volume 8.3; Monocytes # (A) 0.1 k/uL (0-1.0); Monocytes % (A) 3 %; Neutrophils % (A) 88 %; Platelet Count 162 k/uL (150-450); RBC 3.53 m/uL (3.80-5.40); RDW 13.7 % (11.5-15.5); WBC 3.4 k/uL (3.8-10.6)
--- NOTE | 2020-02-25 05:13 | PTCA ---
PERCUTANEOUSTRANS CORORONARY ANGIOGRAPHY Mrs. Gomez is a 69-year-old female who has no prior documented history of coronary artery disease who has been complaining of chest discomfort for the last month, had some more discomfort last night and became quite dyspneic, came in, had signs of heart failure with minimal troponin elevation and QS pattern in the anterior leads. She underwent cardiac catheterization by Dr. Lundberg, was found to have a totally occluded mid LAD with critical stenosis in the left circumflex, diagonal branch and the right coronary artery. Recommendation was made to attempting angioplasty and stenting of the LAD if successful. The procedures, risks, and complications were discussed with the patient who is in full understanding and agreement. PROCEDURE: A 6-[place] FR4 guiding catheter introduced into the system. After cannulating the left main, a 0.014 balanced medium weight J-wire was advanced with a FineCross straight catheter. Multiple attempts to cross the total occlusion were unsuccessful. That wire was removed and a Whisper J-wire was advanced and it was unsuccessful as well. Subsequently that wire was removed and the [place] Blue wire wire was advanced and I was unsuccessful crossing the lesion consistent with a chronic total occlusion. At that point, the guiding catheter, the wire were removed. The sheath was removed. Hemostasis was obtained with deployment of Angio-Seal. There was no immediate complication. Patient was returned to her room in stable condition. RESULTS: Unsuccessful recanalization of chronic total occlusion of the mid left anterior descending artery. RECOMMENDATION: Patient will be evaluated for coronary artery bypass grafting in view of her anatomy and triple-vessel coronary artery disease, those findings and recommendation were discussed with the patient, who was in full understanding and agreement. Duration of procedure 47 minutes. MMODL / IJN: [id number] /
--- NOTE | 2020-02-25 05:19 | LTR ---
February 24, 2020 Re: Sheryl Gomez Dear Dr. Fall: I had the opportunity to attempt angioplasty and stenting on Mrs. Gomez at [facility] on the 23 of February and a full copy of the procedure note will be forwarded to you. In brief, she presented with evidence of CHF with minimal troponin elevation and EKG changes consistent with anterior wall myocardial infarction of unknown duration. She was found to have a total occlusion of the LAD. Multiple attempts to recanalize the vessel were unsuccessful. At this point, I would recommend to proceed with evaluation for coronary artery bypass grafting in view of her severe obstructive disease involving the right coronary artery and the left circumflex. I will keep you updated on her care progress. Thank you again for allowing me the opportunity to participate in her care. Please feel free to call for any questions. Sincerely yours, MD MAYA Blount / ANA MARÍA: [phone] /
[2020-02-25 06:06] LABS: African American GFR (CKD) >90 (>60 ml/min/1.73 sqM); Anion Gap 7 mmol/L; Blood Urea Nitrogen 16 mg/dL (7-17); Calcium 8.7 mg/dL (8.4-10.2); Carbon Dioxide 26 mmol/L (22-30); Chloride 103 mmol/L (98-107); Glucose 137 mg/dL (74-99); Non-African American GFR(CKD) 87 (>60 ml/min/1.73 sqM); Sodium 136 mmol/L (137-145)
--- NOTE | 2020-02-25 07:17 | XR ---
EXAMINATION TYPE: XR chest 1V portable DATE OF EXAM: 02/25/2020 HISTORY: Shortness of breath. COMPARISON: 02/24/2020 TECHNIQUE: Single view of the chest is submitted. FINDINGS: Demonstrated are scattered senescent parenchymal change. Persistent pulmonary venous congestion with perihilar and basilar infiltrates and small effusions. Ca rdiomegaly redemonstrated. Hilar and mediastinal structures are within normal limits. Degenerative changes are seen of the dorsal spine. IMPRESSION: 1. Stable features of congestive failure.
[2020-02-25 08:10] LABS: INR 1.1 (<1.2); Partial Thromboplastin Time 36.3 sec (22.0-30.0)
[2020-02-25] MEDS ORDERED: FUROSEMIDE 10 MG/ML 4 ML VIAL IV SCH (09:00)
--- NOTE | 2020-02-25 09:01 | P.HPIM ---
History of Present Illness This is a pleasant 69 years old female with past medical history of asthma, back pain status post back fusion surgery, psoriasis, Pham's esophagus, degenerative disc disease, sarcoidosis, rheumatoid arthritis, paralyzed left voc al cord. She is a patient of Dr. Fall as her primary doctor. She presents because of dyspnea on and off of 2 days' duration thought this due to ALLERGIC reaction with normal respiratory solution she came to the hospital and found to have CHF. She denies chest pain, no coughing, no abdominal pain, no change in her bowel habits. No fever This morning patient is fully awake and alert, she is not in distress and she is able to smile. Blood pressure on the low side 91/63 this morning, she is saturating 93% on 4 L oxygen, heart rate is 87 and patient is afebrile. Chest x-ray: CHF. CT of the chest with IV contrast: Bilateral pleural effusion and a large anterior mediastinal lymph nodes 1.5 cm and interstitial edema, no pulmonary embolism. EKG showing slightly elevated ST in the anteroapical and miguel-septal leads . QTC 433 Patient underwent emergent cardiac cath showing and successful recanalization of chronic total occlusion of the mid left anterior descending artery with a recommendation for evaluation for bypass surgery in view of the patient's cardiac anatomy and triple-vessel coronary artery disease Patient is currently on aspirin 81 mg, statin, heparin drip Review of Systems CONSTITUTIONAL: No fever, no malaise, no fatigue. HEENT: No recent visual problems or hearing problems. Denied any sore throat. CARDIOVASCULAR: no palpitations, no syncope. PULMONARY: no cough, no hemoptysis. GASTROINTESTINAL: No diarrhea, no nausea, no vomiting, no abdominal pain. Normoactive bowel sounds. NEUROLOGICAL: No headaches, no weakness, no numbness. HEMATOLOGICAL: Denies any bleeding or petechiae. GENITOURINARY: Denies any burning micturition, frequency, or urgency. MUSCULOSKELETAL/RHEUMATOLOGICAL: Denies any joint pain, swelling, or any muscle pain. ENDOCRINE: Denies any polyuria or polydipsia. Past Medical History Past Medical History: Asthma Additional Past Medical History / Comment(s): back pain. Psoriasis. Pham syndrome. Degenerate disc disease. Psoriatic Arthritis. Spondilitis Ankylosis. Sarcoidosis. RA. Paralyzed left vocal cord. History of Any Multi-Drug Resistant Organisms: None Reported Past Surgical History: Back Surgery, Breast Surgery, Hysterectomy Additional Past Surgical History / Comment(s): Back fusion.epidural injections. Hiatal hernia repair. Lumps removed from bilateral breast. Bilateral varicose bein removal. Colonoscopy. Past Anesthesia/Blood Transfusion Reactions: Postoperative Nausea & Vomiting (PONV) Past Psychological History: No Psychological Hx Reported Smoking Status: Never smoker Past Alcohol Use History: None Reported Past Drug Use History: None Reported - Past Family History Mother Family Medical History: Renal Disease Father Family Medical History: Diabetes Mellitus Medications and Allergies Home Medications Medication Instructions Recorded Confirmed Type Diazepam [Valium] 10 mg PO Q8H PRN 05/15/16 02/24/20 History HYDROcodone/APAP 7.5-325MG [Branch 1 - 2 tab PO Q6H PRN 05/15/16 02/24/20 History 7.5-325] diphenhydrAMINE [Benadryl] 25 mg PO Q4H PRN 02/24/20 02/24/20 History Allergies Allergy/AdvReac Type Severity Reaction Status Date / Time acetaminophen Allergy Unknown Verified 02/24/20 18:48 [From Darvocet-N] adhesive tape Allergy Unknown Verified 02/24/20 18:48 ampicillin Allergy Unknown Verified 02/24/20 18:48 Beef Containing Products Allergy Unknown Verified 02/24/20 18:48 [Beef] cefaclor [From Ceclor] Allergy Unknown Verified 02/24/20 18:48 cefuroxime axetil Allergy Unknown Verified 02/24/20 18:48 [From Ceftin] ciprofloxacin [From Cipro] Allergy Unknown Verified 02/24/20 18:48 ciprofloxacin HCl Allergy Unknown Verified 02/24/20 18:48 [From Cipro] clarithromycin [From Biaxin] Allergy Unknown Verified 02/24/20 18:48 codeine phosphate Allergy Unknown Verified 02/24/20 18:48 [From Tylenol-Codeine #3] erythromycin base Allergy Unknown Verified 02/24/20 18:48 etodolac [From Lodine] Allergy Unknown Verified 02/24/20 18:48 fluticasone propionate Allergy Unknown Verified 02/24/20 18:48 [From Flovent Diskus] hydroxychloroquine sulfate Allergy Unknown Verified 02/24/20 18:48 [From Plaquenil] ibuprofen [From Motrin] Allergy Unknown Verified 02/24/20 18:48 indapamide [From Lozol] Allergy Unknown Verified 02/24/20 18:48 infliximab [From Remicade] Allergy Unknown Verified 02/24/20 18:48 Influenza Virus Vaccines Allergy Unknown Verified 02/24/20 18:48 ketorolac tromethamine Allergy Unknown Verified 02/24/20 18:48 [From Toradol] lanolin Allergy Unknown Verified 02/24/20 18:48 lansoprazole [From Prevacid] Allergy Unknown Verified 02/24/20 18:48 levofloxacin [From Levaquin] Allergy Unknown Verified 02/24/20 18:48 loracarbef [From Lorabid] Allergy Unknown Verified 02/24/20 18:48 lorazepam [From Ativan] Allergy Unknown Verified 02/24/20 18:48 methotrexate Allergy Unknown Verified 02/24/20 18:48 Milk Containing Products Allergy Unknown Verified 02/24/20 18:48 [Dairy] montelukast sodium Allergy Unknown Verified 02/24/20 18:48 [From Singulair] naproxen [From Naprosyn] Allergy Unknown Verified 02/24/20 18:48 paroxetine HCl [From Paxil] Allergy Unknown Verified 02/24/20 18:48 Penicillins Allergy Unknown Verified 02/24/20 18:48 pentazocine lactate Allergy Unknown Verified 02/24/20 18:48 [From Talwin] phenol [From Chloraseptic] Allergy Unknown Verified 02/24/20 18:48 pirbuterol acetate Allergy Unknown Verified 02/24/20 18:48 [From [employer]] pneumococcal vaccine Allergy Unknown Verified 02/24/20 18:48 Pork/Porcine Containing Allergy Unknown Verified 02/24/20 18:48 Products [Pork] pregabalin [From Lyrica] Allergy Unknown Verified 02/24/20 18:48 propoxyphene napsylate Allergy Unknown Verified 02/24/20 18:48 [From Darvocet-N] red dye Allergy Dyspnea Verified 02/24/20 18:48 rofecoxib [From Vioxx] Allergy Unknown Verified 02/24/20 18:48 salmeterol xinafoate Allergy Unknown Verified 02/24/20 18:48 [From Serevent] sodium phenolate Allergy Unknown Verified 02/24/20 18:48 [From Chloraseptic] Sulfa (Sulfonamide Allergy Unknown Verified 02/24/20 18:48 Antibiotics) sulfamethoxazole Allergy Unknown Verified 02/24/20 18:48 [From Bactrim] tramadol HCl [From Ultracet] Allergy Unknown Verified 02/24/20 18:48 trimethoprim [From Bactrim] Allergy Unknown Verified 02/24/20 18:48 wheat Allergy Unknown Verified 02/24/20 18:48 yellow dye Allergy Dyspnea Verified 02/24/20 18:48 Physical Exam Vitals: Vital Signs Temp Pulse Resp BP Pulse Ox 02/25/20 07:00 87 20 91/63 93 L 02/25/20 06:00 79 22 86/50 90 L 02/25/20 05:00 80 19 87/53 95 02/25/20 04:00 98.2 F 79 18 83/52 93 L 02/25/20 03:00 73 20 86/53 93 L 02/25/20 02:00 90 14 92/58 92 L 02/25/20 01:00 87 24 101/61 94 L 02/25/20 00:24 101 H 22 93 L 02/25/20 00:00 98.7 F 101 H 19 100/65 94 L 02/24/20 23:00 98.7 F 106 H 20 110/71 94 L 02/24/20 22:52 93 L 02/24/20 21:41 98.7 F 02/24/20 20:53 103 H 16 116/77 93 L 02/24/20 20:37 117 H 16 106/73 94 L 02/24/20 20:27 109 H 16 110/69 95 02/24/20 19:15 105 H 16 118/71 95 02/24/20 18:38 22 02/24/20 17:59 98.4 F 117 H 20 123/79 94 L Intake and Output 02/24/20 02/25/20 02/25/20 22:59 06:59 14:59 Intake Total 100 480 Output Total 1835 Balance 100 -1355 Intake: IV 100 480 Sodium Chloride 0.9% 1, 450 000 ml @ 75 mls/hr IV . [id number] [facility] Rx#:[id number] kvo 30 Output: Urine 1835 Other: Voiding Method Indwelling Catheter Weight 68.039 kg 68 kg GENERAL: The patient is alert and oriented x3, not in any acute distress. Well developed, well nourished. HEENT: Pupils are round and equally reacting to light. EOMI. No scleral icterus. No conjunctival pallor. Normocephalic, atraumatic. No pharyngeal erythema. No thyromegaly. CARDIOVASCULAR: S1 and S2 present. No murmurs, rubs, or gallops. -PULMONARY: Chest is clear to auscultation, no wheezing. Bilateral middle and basal crepitation ABDOMEN: Soft, nontender, nondistended, normoactive bowel sounds. No palpable organomegaly. MUSCULOSKELETAL: No joint swelling or deformity. EXTREMITIES: No cyanosis, clubbing, or pedal edema. NEUROLOGICAL: Gross neurological examination did not reveal any focal deficits. SKIN: No rashes. No petechiae Results CBC & Chem 7: 02/25/20 03:41 02/25/20 03:41 Labs: Abnormal Lab Results - Last 24 Hours (Table) 02/24/20 02/24/20 02/24/20 Range/Units 18:34 19:01 19:01 WBC (3.8-10.6) k/uL RBC (3.80-5.40) m/uL MCV 104.4 H (80.0-100.0) fL Lymphocytes # 0.6 L (1.0-4.8) k/uL PT (9.0-12.0) sec INR (<1.2) APTT (22.0-30.0) sec D-Dimer 1.04 H (<0.60) mg/L FEU ABG pH (7.35-7.45) ABG pO2 (83-108) mmHg ABG O2 Saturation (94-97) % Sodium (137-145) mmol/L Glucose 119 H (74-99) mg/dL POC Glucose (mg/dL) (75-99) mg/dL Troponin I (0.000-0.034) ng/mL LDL Cholesterol, Calc (0-99) mg/dL HDL Cholesterol (40-60) mg/dL 02/24/20 02/24/20 02/24/20 Range/Units 19:01 21:30 23:00 WBC (3.8-10.6) k/uL RBC (3.80-5.40) m/uL MCV (80.0-100.0) fL Lymphocytes # (1.0-4.8) k/uL PT (9.0-12.0) sec INR (<1.2) APTT (22.0-30.0) sec D-Dimer (<0.60) mg/L FEU ABG pH 7.46 H (7.35-7.45) ABG pO2 73 L (83-108) mmHg ABG O2 Saturation 93.0 L (94-97) % Sodium (137-145) mmol/L Glucose (74-99) mg/dL POC Glucose (mg/dL) (75-99) mg/dL Troponin I 1.370 H* (0.000-0.034) ng/mL LDL Cholesterol, Calc 114 H (0-99) mg/dL HDL Cholesterol 39 L (40-60) mg/dL 02/24/20 02/24/20 02/24/20 Range/Units 23:00 23:00 23:00 WBC (3.8-10.6) k/uL RBC 3.67 L (3.80-5.40) m/uL MCV 105.7 H (80.0-100.0) fL Lymphocytes # 0.3 L (1.0-4.8) k/uL PT 21.6 H (9.0-12.0) sec INR 2.2 H (<1.2) APTT 141.9 H* (22.0-30.0) sec D-Dimer (<0.60) mg/L FEU ABG pH (7.35-7.45) ABG pO2 (83-108) mmHg ABG O2 Saturation (94-97) % Sodium (137-145) mmol/L Glucose (74-99) mg/dL POC Glucose (mg/dL) (75-99) mg/dL Troponin I 1.010 H* (0.000-0.034) ng/mL LDL Cholesterol, Calc (0-99) mg/dL HDL Cholesterol (40-60) mg/dL 02/24/20 02/25/20 02/25/20 Range/Units 23:02 03:41 03:41 WBC 3.4 L (3.8-10.6) k/uL RBC 3.53 L (3.80-5.40) m/uL MCV 105.4 H (80.0-100.0) fL Lymphocytes # 0.3 L (1.0-4.8) k/uL PT (9.0-12.0) sec INR (<1.2) APTT (22.0-30.0) sec D-Dimer (<0.60) mg/L FEU ABG pH (7.35-7.45) ABG pO2 (83-108) mmHg ABG O2 Saturation (94-97) % Sodium (137-145) mmol/L Glucose (74-99) mg/dL POC Glucose (mg/dL) 157 H (75-99) mg/dL Troponin I 1.810 H* (0.000-0.034) ng/mL LDL Cholesterol, Calc (0-99) mg/dL HDL Cholesterol (40-60) mg/dL 02/25/20 Range/Units 03:41 WBC (3.8-10.6) k/uL RBC (3.80-5.40) m/uL MCV (80.0-100.0) fL Lymphocytes # (1.0-4.8) k/uL PT (9.0-12.0) sec INR (<1.2) APTT (22.0-30.0) sec D-Dimer (<0.60) mg/L FEU ABG pH (7.35-7.45) ABG pO2 (83-108) mmHg ABG O2 Saturation (94-97) % Sodium 136 L (137-145) mmol/L Glucose 137 H (74-99) mg/dL POC Glucose (mg/dL) (75-99) mg/dL Troponin I (0.000-0.034) ng/mL LDL Cholesterol, Calc (0-99) mg/dL HDL Cholesterol (40-60) mg/dL Thrombosis Risk Factor Assmnt - Choose All That Apply Any of the Below Risk Factors Present?: Yes Each Factor Represents 1 point: Acute DE, Heart failure (<1month), Medical pt on bed rest, Varicose veins Other Risk Factors: Yes Each Risk Factor Represents 2 Points: Age 61-74 years Thrombosis Risk Factor Assessment Total Risk Factor Score: 6 Thrombosis Risk Factor Assessment Level: High Risk Assessment and Plan Assessment: Acute coronary artery syndrome with triple-vessel disease, totally occluded mid LAD, critical stenosis in the left circumflex and diagonal branch of the RCA Acute systolic CHF with bilateral pleural effusion Enlarged mediastinal lymph nodes 1.5 cm History of asthma, not an active issue Psoriasis and psoriatic arthritis Pham's esophagus chronic back pain status post back fusion surgery 3 Degenerative disc disease Sarcoidosis Rheumatoid arthritis Paralyzed left vocal cord Plan: This is a pleasant 69 years old female who presents with ACS and CHF. Continue with aspirin and heparin drip. Cardiology and pulmonary/critical care consult. Patient felt recanalization by cardiac cath and his been evaluated for possible bypass surgery and aortic valve repair/replacement. Labs and medication were reviewed.. Continue same treatment. Continue with symptomatic treatment. Resume home medication. Monitor lytes and vitals. DVT and GI prophylaxis. Further recommendations of the clinical course of the patient DVT prophylaxis: heparin GI Prophylaxis: Pepcid PT/OT: Pending Prognosis is guarded
[2020-02-25] MEDS: ASPIRIN 81 MG PO SCH (09:52)
[2020-02-25] MEDS: ATORVASTATIN 80 MG TAB PO SCH (09:53)
[2020-02-25] MEDS: FAMOTIDINE 20 MG/2 ML VIAL IV SCH ×2 (09:53→20:02)
[2020-02-25] MEDS: SPIRONOLACTONE 25 MG TAB PO SCH (09:54)
[2020-02-25 10:02] LABS: ALT 13 U/L (4-34); AST 32 U/L (14-36); Alkaline Phosphatase 75 U/L (38-126); Total Bilirubin 0.6 mg/dL (0.2-1.3); Total Protein 5.6 g/dL (6.3-8.2)
--- NOTE | 2020-02-25 11:00 | ECHOF ---
Referral Reason:chf MEASUREMENTS -------- HEIGHT: 165.1 cm WEIGHT: 67.6 kg BP: 91/63 IVSd: 1.0 cm (0.6 - 1.1) LVIDd: 4.6 cm (3.9 - 5.3) LVPWd: 1.2 cm (0.6 - 1.1) IVSs: 1.3 cm LVIDs: 4.1 cm LVPWs: 1.1 cm LAESV Index (A-L): 54.53 ml/m Ao Diam: 2.9 cm (2.0 - 3.7) AV Cusp: 2.0 cm (1.5 - 2.6) LA Diam: 3.4 cm (2.7 - 3.8) MV EXCURSION: 14.230 mm (> 18.000) MV EF SLOPE: 93 mm/s (70 - 150) EPSS: 3.0 cm MV E Darryn: 0.84 m/s MV DecT: 211 ms MV A Darryn: 0.57 m/s MV E/A Ratio: 1.47 RAP: 5.00 mmHg RVSP: 55.42 mmHg TAPSE: 22.91 mm FINDINGS -------- Sinus rhythm. This was a technically good study. The left ventricular size is normal. Left ventricular wall thickness is normal. Overall left vent ricular systolic function is severely impaired with, an EF between 25 - 30 %. Increased LAP Grade 3 Diastolic Dysfunction. Apical anterior LV wall motion is hypokinetic. Apical lateral LV wall mo tion is hypokinetic. Apical inferior LV wall motion is hypokinetic. Apical septum LV wall motio n is hypokinetic. The right ventricle is normal in size. LA is severely dilated >40 ml/m2 The right atrial size is normal. Possible ASD The aortic valve is trileaflet and appears structurally normal. The mitral valve is normal. Severe mitral regurgitation is present. The tricuspid valve appears structurally normal. Severe tricuspid regurgitation present. There is moderate pulmonary hypertension. The right ventricular systolic pressure, as measured by Doppler, is 55.42mmHg. There is no pulmonic regurgitation present. The aortic root size is normal. Normal inferior vena cava with normal inspiratory collapse consistent with estimated right atrial pre ssure of 5 mmHg. There is no pericardial effusion. CONCLUSIONS -------- 1. Sinus rhythm. 2. This was a technically good study. 3. The left ventricular size is normal. 4. Left ventricular wall thickness is normal. 5. Overall left ventricular systolic function is severely impaired with, an EF between 25 - 30 %. 6. Increased LAP Grade 3 Diastolic Dysfunction. 7. Apical anterior LV wall motion is hypokinetic. 8. Apical lateral LV wall motion is hypokinetic. 9. Apical inferior LV wall motion is hypokinetic. 10. Apical septum LV wall motion is hypokinetic. 11. The right ventricle is normal in size. 12. LA is severely dilated >40 ml/m2 13. The right atrial size is normal. 14. Possible ASD 15. The aortic valve is trileaflet and appears structurally normal. 16. The mitral valve is normal. 17. Severe mitral regurgitation is present. 18. The tricuspid valve appears structurally normal. 19. Severe tricuspid regurgitation present. 20. There is moderate pulmonary hypertension. 21. The right ventricular systolic pressure, as measured by Doppler, is 55.42mmHg. 22. There is no pulmonic regurgitation present. 23. The aortic root size is normal. 24. Normal inferior vena cava with normal inspiratory collapse consistent with estimated right atrial pressure of 5 mmHg. 25. There is no pericardial effusion. STUNT DRIVER: Stormy Vargas RDCS
--- NOTE | 2020-02-25 11:24 | US ---
EXAMINATION TYPE: US carotid duplex BILAT DATE OF EXAM: 02/25/2020 COMPARISON: CLINICAL HISTORY: Pre-Op Cardiac Surgery. PreCABG EXAM MEASUREMENTS: RIGHT: Peak Systolic Velocity (PSV) cm/sec ----- Right CCA: 79.8 ----- Right ICA: 64.7 ----- Right ECA: 115.1 ICA/CCA ratio: 0.8 RIGHT: End Diastole cm/sec ----- Right CCA: 12.9 ----- Right ICA: 13.1 ----- Right ECA: 11.5 LEFT: Peak Systolic Velocity (PSV) cm/sec ----- Left CCA: 60.3 ----- Left ICA: 71.3 ----- Left ECA: 79.0 ICA/CCA ratio: 1.2 LEFT: End Diastole cm/sec ----- Left CCA: 15.3 ----- Left ICA: 13.1 ----- Left ECA: 0.0 VERTEBRALS (direction of flow): Right Vertebral: Antegrade Left Vertebral: Antegrade Rhythm: Normal IMPRESSION: Bilateral wall thickening. No elevated velocities or significant stenosis. Plaque seen in bilateral CCA and bulbs. Criteria for Assigning % of Stenosis / Diameter reduction (Estimation based on the indirect measurements of the internal carotid artery velocities (ICA PSV). 1. Normal (no stenosis)=ICA PSV < 125 cm/s: ratio < 2.0: ICA EDV<40 cm/s. 2. Less than 50% stenosis=ICA PSV < 125 cm/s: ratio < 2.0: ICA EDV<40 cm/s. 3. 50 to 69% stenosis=ICA PSV of 125 to 230 cm/s: ration 2.0 ? 4.0: ICA EDV 40-100 cm/s. 4. Greater than 70% stenosis to near occlusion= ICA PSV > 230 cm/s: ratio > 4.0: ICA EDV > 100 cm/s. 5. Near occlusion= ICA PSV velocities may be low or undetectable: variable ratio and ICA EDV. 6. Total occlusion=unable to detect flow.
[2020-02-25] MEDS: HEPARIN SODIUM,PORCINE 5,000 UNIT/ML 1 ML VIAL IV PRN (12:01)
--- NOTE | 2020-02-25 13:33 | P.CNPUL ---
History of Present Illness Consult date: 02/25/20 History of present illness: 69-year-old female patient was hospitalized yesterday due to concern of an acute ALLERGIC reaction and while during her stay in the emergency department the patient was found to have significant other medical problems including hypotension, abnormal cardiac enzymes with elevated troponins and abnormal EKG that showed some slightly elevated ST segment in the anterior apical leads in addition to anteroseptal leads. There were also some Q waves involving the anteroseptal Leads and the cardiac rhythm was sinus . Based on those, and based on abnormal troponins and abnormal EKG changes, the patient was taken to cardiac catheterization and the cath showed severe triple-vessel disease including total occlusion of the mid LAD. Attempt to do angioplasty and stenting of the mid LAD failed and the patient was referred to cardiothoracic surgery for possible coronary artery bypass surgery. Heart failure. Echocardiogram showed a LV function was severely impaired with an ejection fraction of 25-30% and the patient also had segmental wall motion abnormalities and possible ASD. Severe mitral regurgitation was present. Severe tricuspid regurgitation was present. Pulmonary artery pressure was in the order of 55 mmHg. She is calm and comfortable and she denies having any chest pain. The chest x-ray showed CHF and the CAT scan of the chest showed no evidence of any pulmonary embolism. There was bilateral pleural effusion with interstitial edema consistent with CHF. These were new findings compared to the earlier CAT scan of the chest that was done on 09/26/2011. There was also some limited enlargement is on lymphadenopathy which is similar to the older study. Note that the patient also has other comorbidities including history of sarcoidosis that was diagnosed many years ago and the patient is currently in remission. The patient also has psoriasis and psoriatic arthritis and history of ankylosing spondylitis. The p atient has not been taking any form of immunomodulating agents. She has been tried on different agents in the past and she has failed due to ALLERGIES. As such is not taking a treatment. No history of any interstitial lung disease. There is a vague history of left vocal cord paralysis, exact cause for that is unknown and it did not have any documentation in that regard. The patient does not have any hoarseness. No stridor on examination. The patient is currently in the intensive care unit. She is awaiting a cardiothoracic surgery evaluation. She claims that her personal performance and functional status. She was having no major difficulties in movement and walking up to Recently. No swelling in the lower extremity. Review of Systems CONSTITUTIONAL: No fever, no malaise, no fatigue. HEENT: No recent visual problems or hearing problems. Denied any sore throat. CARDIOVASCULAR: no palpitations, no syncope. PULMONARY: no cough, no hemoptysis. She was having exertional dyspnea GASTROINTESTINAL: No diarrhea, no nausea, no vomiting, no abdominal pain. Normoactive bowel sounds. NEUROLOGICAL: No headaches, no weakness, no numbness. HEMATOLOGICAL: Denies any bleeding or petechiae. GENITOURINARY: Denies any burning micturition, frequency, or urgency. MUSCULOSKELETAL/RHEUMATOLOGICAL: Denies any joint pain, swelling, or any muscle pain. ENDOCRINE: Denies any polyuria or polydipsia. Skin :Multiple areas of scratching due to his chronic skin ALLERGIES Past Medical History Past Medical History: Asthma Additional Past Medical History / Comment(s): back pain. Psoriasis. Pham syndrome. Degenerate disc disease. Psoriatic Arthritis. Spondilitis Ankylosis. Sarcoidosis. RA. Paralyzed left vocal cord. History of Any Multi-Drug Resistant Organisms: None Reported Past Surgical History: Back Surgery, Breast Surgery, Hysterectomy Additional Past Surgical History / Comment(s): Back fusion.epidural injections. Hiatal hernia repair. Lumps removed from bilateral breast. Bilateral varicose bein removal. Colonoscopy. Past Anesthesia/Blood Transfusion Reactions: Postoperative Nausea & Vomiting (PONV) Past Psychological History: No Psychological Hx Reported Smoking Status: Never smoker Past Alcohol Use History: None Reported Past Drug Use History: None Reported - Past Family History Mother Family Medical History: Renal Disease Father Family Medical History: Diabetes Mellitus Medications and Allergies Home Medications Medication Instructions Recorded Confirmed Type Diazepam [Valium] 10 mg PO Q8H PRN 05/15/16 02/24/20 History HYDROcodone/APAP 7.5-325MG [[place] 1 - 2 tab PO Q6H PRN 05/15/16 02/24/20 History 7.5-325] diphenhydrAMINE [Benadryl] 25 mg PO Q4H PRN 02/24/20 02/24/20 History Allergies Allergy/AdvReac Type Severity Reaction Status Date / Time acetaminophen Allergy Unknown Verified 02/24/20 18:48 [From Reyes-N] adhesive tape Allergy Unknown Verified 02/24/20 18:48 ampicillin Allergy Unknown Verified 02/24/20 18:48 Beef Containing Products Allergy Unknown Verified 02/24/20 18:48 [Beef] cefaclor [From Ceclor] Allergy Unknown Verified 02/24/20 18:48 cefuroxime axetil Allergy Unknown Verified 02/24/20 18:48 [From Ceftin] ciprofloxacin [From Cipro] Allergy Unknown Verified 02/24/20 18:48 ciprofloxacin HCl Allergy Unknown Verified 02/24/20 18:48 [From Cipro] clarithromycin [From Biaxin] Allergy Unknown Verified 02/24/20 18:48 codeine phosphate Allergy Unknown Verified 02/24/20 18:48 [From Tylenol-Codeine #3] erythromycin base Allergy Unknown Verified 02/24/20 18:48 etodolac [From Lodine] Allergy Unknown Verified 02/24/20 18:48 fluticasone propionate Allergy Unknown Verified 02/24/20 18:48 [From Flovent Diskus] hydroxychloroquine sulfate Allergy Unknown Verified 02/24/20 18:48 [From Plaquenil] ibuprofen [From Motrin] Allergy Unknown Verified 02/24/20 18:48 indapamide [From Lozol] Allergy Unknown Verified 02/24/20 18:48 infliximab [From Remicade] Allergy Unknown Verified 02/24/20 18:48 Influenza Virus Vaccines Allergy Unknown Verified 02/24/20 18:48 ketorolac tromethamine Allergy Unknown Verified 02/24/20 18:48 [From Toradol] lanolin Allergy Unknown Verified 02/24/20 18:48 lansoprazole [From Prevacid] Allergy Unknown Verified 02/24/20 18:48 levofloxacin [From Levaquin] Allergy Unknown Verified 02/24/20 18:48 loracarbef [From Lorabid] Allergy Unknown Verified 02/24/20 18:48 lorazepam [From Ativan] Allergy Unknown Verified 02/24/20 18:48 methotrexate Allergy Unknown Verified 02/24/20 18:48 Milk Containing Products Allergy Unknown Verified 02/24/20 18:48 [Dairy] montelukast sodium Allergy Unknown Verified 02/24/20 18:48 [From Singulair] naproxen [From Naprosyn] Allergy Unknown Verified 02/24/20 18:48 paroxetine HCl [From Paxil] Allergy Unknown Verified 02/24/20 18:48 Penicillins Allergy Unknown Verified 02/24/20 18:48 pentazocine lactate Allergy Unknown Verified 02/24/20 18:48 [From Talwin] phenol [From Chloraseptic] Allergy Unknown Verified 02/24/20 18:48 pirbuterol acetate Allergy Unknown Verified 02/24/20 18:48 [From [employer]] pneumococcal vaccine Allergy Unknown Verified 02/24/20 18:48 Pork/Porcine Containing Allergy Unknown Verified 02/24/20 18:48 Products [Pork] pregabalin [From Lyrica] Allergy Unknown Verified 02/24/20 18:48 propoxyphene napsylate Allergy Unknown Verified 02/24/20 18:48 [From Darvocet-N] red dye Allergy Dyspnea Verified 02/24/20 18:48 rofecoxib [From Vioxx] Allergy Unknown Verified 02/24/20 18:48 salmeterol xinafoate Allergy Unknown Verified 02/24/20 18:48 [From Serevent] sodium phenolate Allergy Unknown Verified 02/24/20 18:48 [From Chloraseptic] Sulfa (Sulfonamide Allergy Unknown Verified 02/24/20 18:48 Antibiotics) sulfamethoxazole Allergy Unknown Verified 02/24/20 18:48 [From Bactrim] tramadol HCl [From Ultracet] Allergy Unknown Verified 02/24/20 18:48 trimethoprim [From Bactrim] Allergy Unknown Verified 02/24/20 18:48 wheat Allergy Unknown Verified 02/24/20 18:48 yellow dye Allergy Dyspnea Verified 02/24/20 18:48 Physical Exam Vitals: Vital Signs Temp Pulse Resp BP Pulse Ox 02/25/20 13:00 101 H 31 H 83/51 96 02/25/20 12:00 81 28 H 84/51 94 L 02/25/20 11:00 87 11 L 87/52 94 L 02/25/20 10:00 82 12 87/54 95 02/25/20 09:00 98.5 F 90 28 H 91/62 93 L 02/25/20 08:00 93 17 87/58 95 02/25/20 07:00 87 20 91/63 93 L 02/25/20 06:00 79 22 86/50 90 L 02/25/20 05:00 80 19 87/53 95 02/25/20 04:00 98.2 F 79 18 83/52 93 L 02/25/20 03:00 73 20 86/53 93 L 02/25/20 02:00 90 14 92/58 92 L 02/25/20 01:00 87 24 101/61 94 L 02/25/20 00:24 101 H 22 93 L 02/25/20 00:00 98.7 F 101 H 19 100/65 94 L 02/24/20 23:00 98.7 F 106 H 20 110/71 94 L 02/24/20 22:52 93 L 02/24/20 21:41 98.7 F 02/24/20 20:53 103 H 16 116/77 93 L 02/24/20 20:37 117 H 16 106/73 94 L 02/24/20 20:27 109 H 16 110/69 95 02/24/20 19:15 105 H 16 118/71 95 02/24/20 18:38 22 02/24/20 17:59 98.4 F 117 H 20 123/79 94 L Intake and Output 02/24/20 02/25/20 02/25/20 22:59 06:59 14:59 Intake Total 100 480 145.954 Output Total 1835 300 Balance 100 -1355 -154.046 Intake: IV 100 480 60 Sodium Chloride 0.9% 1, 450 000 ml @ 75 mls/hr IV . [id number] [facility]LEE Rx#:[id number] kvo 30 60 Intake, IV Titration 85.954 Amount Heparin Sod,Pork in 0.45% 85.954 NaCl 25,000 unit In 0.45 % NaCl 1 250ml.bag @ 12 UNITS/KG/HR 6.858 mls/hr IV .Q24H CARLEE Rx#: [id number] Output: Urine 1835 300 Other: Voiding Method Indwelling Catheter Weight 68.039 kg 68 kg The patient appeared well nourished and normally developed. Vital signs as documented. Head exam is unremarkable. No scleral icterus or corneal arcus noted. Neck is without jugular venous distension, thyromegaly, or carotid bruits. Carotid upstrokes are brisk bilaterally. Lungs are diminished breath sounds bilaterally especially lung bases along with some crackers the lung bases bilaterally.. Cardiac exam reveals the PMI to be normally sized and situated. Rhythm is regular. First and second heart sounds normal. No murmurs, rubs or gallops. Abdominal exam reveals normal bowel sounds, no masses, no organomegaly and no aortic enlargement. Extremities are nonedematous and both femoral and pedal pulses are normal.Examination of the skin revealed no evidence of significant rashes, suspicious appearing nevi or other concerning lesions. Neurologically the patient is awake and alert and there is no focal neurological deficit. Results - Laboratory Findings CBC and BMP: 02/25/20 03:41 02/25/20 03:41 ABG ABG pH 7.46 (7.35-7.45) H 02/24/20 21:30 ABG pCO2 36 mmHg (35-45) 02/24/20 21:30 ABG pO2 73 mmHg (83-108) L 02/24/20 21:30 ABG O2 Saturation 93.0 % (94-97) L 02/24/20 21:30 PT/INR, D-dimer PT 11.0 sec (9.0-12.0) 02/25/20 06:58 INR 1.1 (<1.2) 02/25/20 06:58 D-Dimer 1.04 mg/L FEU (<0.60) H 02/24/20 19:01 Abnormal lab findings: Abnormal Labs 02/24/20 02/24/20 02/24/20 18:34 19:01 19:01 WBC RBC MCV 104.4 H Lymphocytes # 0.6 L PT INR APTT D-Dimer 1.04 H ABG pH ABG pO2 ABG O2 Saturation Sodium Glucose 119 H POC Glucose (mg/dL) Troponin I Total Protein Albumin LDL Cholesterol, Calc HDL Cholesterol 02/24/20 02/24/20 02/24/20 19:01 21:30 23:00 WBC RBC MCV Lymphocytes # PT INR APTT D-Dimer ABG pH 7.46 H ABG pO2 73 L ABG O2 Saturation 93.0 L Sodium Glucose POC Glucose (mg/dL) Troponin I 1.370 H* Total Protein Albumin LDL Cholesterol, Calc 114 H HDL Cholesterol 39 L 02/24/20 02/24/20 02/24/20 23:00 23:00 23:00 WBC RBC 3.67 L MCV 105.7 H Lymphocytes # 0.3 L PT 21.6 H INR 2.2 H APTT 141.9 H* D-Dimer ABG pH ABG pO2 ABG O2 Saturation Sodium Glucose POC Glucose (mg/dL) Troponin I 1.010 H* Total Protein Albumin LDL Cholesterol, Calc HDL Cholesterol 02/24/20 02/25/20 02/25/20 23:02 03:41 03:41 WBC 3.4 L RBC 3.53 L MCV 105.4 H Lymphocytes # 0.3 L PT INR APTT D-Dimer ABG pH ABG pO2 ABG O2 Saturation Sodium Glucose POC Glucose (mg/dL) 157 H Troponin I 1.810 H* Total Protein Albumin LDL Cholesterol, Calc HDL Cholesterol 02/25/20 02/25/20 03:41 06:58 WBC RBC MCV Lymphocytes # PT INR APTT 36.3 H D-Dimer ABG pH ABG pO2 ABG O2 Saturation Sodium 136 L Glucose 137 H POC Glucose (mg/dL) Troponin I Total Protein 5.6 L Albumin 3.0 L LDL Cholesterol, Calc HDL Cholesterol - Diagnostic Findings Chest x-ray: image reviewed CT scan - chest: image reviewed Assessment and Plan Plan: 1 acute non-ST segment elevation myocardial infarction, troponin peaked at 1.8 2 triple-vessel coronary artery disease with complete occlusion of the mid LAD based on cardiac catheterization. Failed angioplasty and stenting 3 acute systolic heart failure which is of a new onset and there is a significant drop in the patient's LV ejection fraction which is down to 25-30% 4 acute hypoxic respiratory failure secondary to above 5 bilateral pleural effusion most likely secondary to CHF as the patient also has some interstitial edema 6 nonspecific mediastinal lymph nodes, unchanged compared to CAT scan of the chest from 2012 7 sarcoidosis currently inactive in stable 8 history of ankylosing spondylitis 9 history of psoriatic arthritis 10 questionable history of left vocal cord paralysis, no stridor at this point in time 11 mild intermittent bronchial asthma 12 multiple drug ALLERGIES Plan Keep the patient intensive care unit Awaiting his cardiac surgery consultation in that regard Obtain vein mapping of the lower extremities Obtain ultrasound of the carotids Continue with Lasix 40 mg every 12 hours to optimize CHF about the pleural effusions Provide the patient incentive spirometer Continue aspirin Continue metoprolol 12.5 mg by mouth twice a day Continue Aldactone Continue IV heparin We'll need a bedside spirometry to evaluate her FEV1 We'll continue to follow make further recommendations as we are working up this patient for cardiac surgery. Meanwhile the patient will need possibly another ENT evaluation to look of the left vocal cord specially if there are plans to proceed with cardiac surgery. On exam, she does not have any interstitial lung disease or stridor to indicate upper airway obstruction. We'll continue to follow.
--- NOTE | 2020-02-25 13:41 | PN ---
PROGRESS NOTE Sheryl is a 69-year-old lady who is admitted to hospital with acute non ST-segment elevation TX. Underwent emergent cardiac catheterization and was found to have severe three-vessel coronary artery disease. She is awaiting evaluation by cardiothoracic surgery. She had an unsuccessful attempt at angioplasty of the LAD. An echocardiogram this morning shows severe mitral regurgitation and ischemic cardiomyopathy with severe LV dysfunction. She denies chest pain or difficulty in breathing. EXAM: Heart rate is 90 beats per minute. Blood pressure is 92/60. Respiratory rate is 18. Chest exam reveals good air entry bilaterally. Heart exam reveals first and second heart sounds and a systolic murmur at the apex. Abdomen: Soft. Exam of extremities did not reveal any edema. Peripheral pulses are felt. Labs show a hemoglobin of 11.8, platelet count of 160. Potassium is 4, creatinine is 0.7. Peak troponin was 1.8. LDL cholesterol is 114. Current medications include aspirin, Lipitor, Lasix, Lopressor and heparin along with Aldactone. ASSESSMENT: 1. Three-vessel coronary artery disease. 2. Severe mitral regurgitation. 3. Ischemic cardiomyopathy. PLAN: The patient will need evaluation by surgery for possible bypass along with mitral valve repair. She will have a YNES tomorrow. MMODL / IJN: [id number] /
[2020-02-25] MEDS: METOPROLOL TARTRATE 12.5 MG TAB PO SCH (14:41)
--- NOTE | 2020-02-25 16:44 | P.GSCN ---
History of Present Illness Consult date: 02/25/20 Reason for Consult: Multivessel coronary artery disease, non-STEMI this admission, evaluation for myocardial revascularization surgery. Requesting physician: Stephanie Chase History of present illness: This is a 69-year-old female patient who is followed by Dr. Rubén Fall on an outpatient basis. She has a past medical history significant for asthma, anxiety, sarcoidosis, psoriasis with psoriatic arthritis, Pham esophagus, spondylitis alkalosis, migraine headaches, chronic back pain status post back fusion surgery, rheumatoid arthritis, paralyzed left vocal cord, multiple medication ALLERGIES and varicose vein status post vein stripping. Recently, the patient has had complaints of chest tightness which has been radiating to her neck and jaw associated with progressive shortness of breath. Due to the c omplaints of chest tightness and shortness of breath she presented to the emergency department here at [facility]. She had taken a [place] at home which was a different color than what she normally takes and felt she was having an ALLERGIC reaction due to the dye in the pill coloring. A 12-lead EKG was completed in the emergency department which showed Q waves in the anterior leads with mild ST elevations in leads V1, and V2. She denies any complaints of nausea, vomiting, fever, chills, presyncope, syncope or palpitations. The patient does report that she has been having to recline her bed recently at night due to her shortness of breath. A chest x-ray was completed in the emergency department which showed congestive heart failure with pleural effusions. Her initial lab work demonstrated a WBC count of 7.2, hemoglobin 12.9, platelets 198, d-dimer 1.04, BUN 16, creatinine 0.70, glucose 119, BNP 12,400, and troponin elevated at 1.370. She did have serial troponins drawn and were as high as 1.810. To rule out pulmonary embolus a CT of the chest in February was completed which was negative for pulmonary embolism, although did demonstrate pleural effusions with pulmonary interstitial edema consistent with congestive heart failure. It also demonstrated some enlarged anterior mediastinal lymph nodes up to 1.5 cm and some subcarinal lymph nodes up to 1.5 cm. Subsequently, due to her presenting symptoms and positive troponins a consult was placed to Dr. Lundberg from cardiology and the patient was taken for an urgent cardiac catheterization which demonstrated severe triple-vessel coronary artery disease with a totally occluded mid left anterior descending c oronary artery, a 90-95 ostial stenosis to her circumflex coronary artery and a 70-80% stenosis to her mid right coronary artery. Due to the findings on the cardiac catheterization and percutaneous intervention was attempted but was unsuccessful recannulization of her chronic total occlusion of the mid left anterior descending coronary artery. For further evaluation a 2-D echocardiogram was completed which demonstrated an overall left ventricular systolic function to be severely impaired with an ejection fraction between 25 and 30%, a possible atrial septal defect, severe mitral valve regurgitation and severe tricuspid valve regurgitation. Due to the patient's presenting symptoms, positive troponins, cardiac catheterization findings and findings on the 2-D echocardiogram a consult was placed to Dr. Sakina Beck from cardiothoracic surgery for further evaluation and treatment recommendations. Review of Systems A 14 point review of systems was completed and was negative except as mentioned in the HPI. Past Medical History Past Medical History: Asthma, Rheumatoid Arthritis (RA) Additional Past Medical History / Comment(s): back pain. Psoriasis. Pham syndrome. Degenerate disc disease. Psoriatic Arthritis. Spondilitis Ankylosis. Sarcoidosis. RA. Paralyzed left vocal cord. History of Any Multi-Drug Resistant Organisms: None Reported Past Surgical History: Back Surgery, Breast Surgery, Hysterectomy Additional Past Surgical History / Comment(s): Back fusion.epidural injections. Hiatal hernia repair. Lumps removed from bilateral breast. Bilateral varicose, status post vein stripping. Colonoscopy. Past Anesthesia/Blood Transfusion Reactions: Postoperative Nausea & Vomiting (PONV) Past Psychological History: Anxiety Smoking Status: Never smoker Past Alcohol Use History: None Reported Past Drug Use History: None Reported - Past Family History Mother Family Medical History: Renal Disease Father Family Medical History: Diabetes Mellitus Medications and Allergies Home Medications Medication Instructions Recorded Confirmed Type Diazepam [Valium] 10 mg PO Q8H PRN 05/15/16 02/24/20 History HYDROcodone/APAP 7.5-325MG [[place] 1 - 2 tab PO Q6H PRN 05/15/16 02/24/20 History 7.5-325] diphenhydrAMINE [Benadryl] 25 mg PO Q4H PRN 02/24/20 02/24/20 History Allergies Allergy/AdvReac Type Severity Reaction Status Date / Time acetaminophen Allergy Unknown Verified 02/24/20 18:48 [From Darvocet-N] adhesive tape Allergy Unknown Verified 02/24/20 18:48 ampicillin Allergy Unknown Verified 02/24/20 18:48 Beef Containing Products Allergy Unknown Verified 02/24/20 18:48 [Beef] cefaclor [From Ceclor] Allergy Unknown Verified 02/24/20 18:48 cefuroxime axetil Allergy Unknown Verified 02/24/20 18:48 [From Ceftin] ciprofloxacin [From Cipro] Allergy Unknown Verified 02/24/20 18:48 ciprofloxacin HCl Allergy Unknown Verified 02/24/20 18:48 [From Cipro] clarithromycin [From Biaxin] Allergy Unknown Verified 02/24/20 18:48 codeine phosphate Allergy Unknown Verified 02/24/20 18:48 [From Tylenol-Codeine #3] erythromycin base Allergy Unknown Verified 02/24/20 18:48 etodolac [From Lodine] Allergy Unknown Verified 02/24/20 18:48 fluticasone propionate Allergy Unknown Verified 02/24/20 18:48 [From Flovent Diskus] hydroxychloroquine sulfate Allergy Unknown Verified 02/24/20 18:48 [From Plaquenil] ibuprofen [From Motrin] Allergy Unknown Verified 02/24/20 18:48 indapamide [From Lozol] Allergy Unknown Verified 02/24/20 18:48 infliximab [From Remicade] Allergy Unknown Verified 02/24/20 18:48 Influenza Virus Vaccines Allergy Unknown Verified 02/24/20 18:48 ketorolac tromethamine Allergy Unknown Verified 02/24/20 18:48 [From Toradol] lanolin Allergy Unknown Verified 02/24/20 18:48 lansoprazole [From Prevacid] Allergy Unknown Verified 02/24/20 18:48 levofloxacin [From Levaquin] Allergy Unknown Verified 02/24/20 18:48 loracarbef [From Lorabid] Allergy Unknown Verified 02/24/20 18:48 lorazepam [From Ativan] Allergy Unknown Verified 02/24/20 18:48 methotrexate Allergy Unknown Verified 02/24/20 18:48 Milk Containing Products Allergy Unknown Verified 02/24/20 18:48 [Dairy] montelukast sodium Allergy Unknown Verified 02/24/20 18:48 [From Singulair] naproxen [From Naprosyn] Allergy Unknown Verified 02/24/20 18:48 paroxetine HCl [From Paxil] Allergy Unknown Verified 02/24/20 18:48 Penicillins Allergy Unknown Verified 02/24/20 18:48 pentazocine lactate Allergy Unknown Verified 02/24/20 18:48 [From Talwin] phenol [From Chloraseptic] Allergy Unknown Verified 02/24/20 18:48 pirbuterol acetate Allergy Unknown Verified 02/24/20 18:48 [From [employer]] pneumococcal vaccine Allergy Unknown Verified 02/24/20 18:48 Pork/Porcine Containing Allergy Unknown Verified 02/24/20 18:48 Products [Pork] pregabalin [From Lyrica] Allergy Unknown Verified 02/24/20 18:48 propoxyphene napsylate Allergy Unknown Verified 02/24/20 18:48 [From Darvocet-N] red dye Allergy Dyspnea Verified 02/24/20 18:48 rofecoxib [From Vioxx] Allergy Unknown Verified 02/24/20 18:48 salmeterol xinafoate Allergy Unknown Verified 02/24/20 18:48 [From Serevent] sodium phenolate Allergy Unknown Verified 02/24/20 18:48 [From Chloraseptic] Sulfa (Sulfonamide Allergy Unknown Verified 02/24/20 18:48 Antibiotics) sulfamethoxazole Allergy Unknown Verified 02/24/20 18:48 [From Bactrim] tramadol HCl [From Ultracet] Allergy Unknown Verified 02/24/20 18:48 trimethoprim [From Bactrim] Allergy Unknown Verified 02/24/20 18:48 wheat Allergy Unknown Verified 02/24/20 18:48 yellow dye Allergy Dyspnea Verified 02/24/20 18:48 Surgical - Exam Vital Signs Temp Pulse Resp BP Pulse Ox 98.4 F 117 H 20 123/79 94 L 02/24/20 17:59 02/24/20 17:59 02/24/20 17:59 02/24/20 17:59 02/24/20 17:59 - General well developed, well nourished, no distress, no pain - Eyes PERRL, normal ocular movement - ENT normal pinna, normal nares, normal mucosa, no hearing loss, no congestion, dentures - Neck Neck is supple, no lymphadenopathy. no masses, no bruits, trachea midline, no venous distension - Respiratory Lung sounds are essentially clear to her bilateral upper lobes, few scattered crackles to her bilateral bases. No wheezes, or rhonchi. Respirations are symmetrical and nonlabored. - Cardiovascular Regular rhythm and rate. S1 and S2 present, negative for S3, gallop or murmur. No edema present. - Abdomen Abdomen is soft, nontender and nondistended. Active bowel sounds present in all 4 abdominal quadrants. No guarding or rigidity. No organomegaly. - Genitourinary Deferred - Rectum Deferred - Integumentary Dry scaly skin to her bilateral palm of her hands. no rash, no growths - Neurologic Cranial nerves II through XII intact. - Musculoskeletal normal gait, normal posture - Psychiatric oriented to time, oriented to person, oriented to place, speech is normal, memory intact Results - Labs 02/25/20 03:41 02/25/20 03:41 Abnormal Lab Results - Last 24 Hours (Table) 02/24/20 02/24/20 02/24/20 Range/Units 18:34 19:01 19:01 WBC (3.8-10.6) k/uL RBC (3.80-5.40) m/uL MCV 104.4 H (80.0-100.0) fL Lymphocytes # 0.6 L (1.0-4.8) k/uL PT (9.0-12.0) sec INR (<1.2) APTT (22.0-30.0) sec D-Dimer 1.04 H (<0.60) mg/L FEU ABG pH (7.35-7.45) ABG pO2 (83-108) mmHg ABG O2 Saturation (94-97) % Sodium (137-145) mmol/L Glucose 119 H (74-99) mg/dL POC Glucose (mg/dL) (75-99) mg/dL Troponin I (0.000-0.034) ng/mL Total Protein (6.3-8.2) g/dL Albumin (3.5-5.0) g/dL LDL Cholesterol, Calc (0-99) mg/dL HDL Cholesterol (40-60) mg/dL 02/24/20 02/24/20 02/24/20 Range/Units 19:01 21:30 23:00 WBC (3.8-10.6) k/uL RBC (3.80-5.40) m/uL MCV (80.0-100.0) fL Lymphocytes # (1.0-4.8) k/uL PT (9.0-12.0) sec INR (<1.2) APTT (22.0-30.0) sec D-Dimer (<0.60) mg/L FEU ABG pH 7.46 H (7.35-7.45) ABG pO2 73 L (83-108) mmHg ABG O2 Saturation 93.0 L (94-97) % Sodium (137-145) mmol/L Glucose (74-99) mg/dL POC Glucose (mg/dL) (75-99) mg/dL Troponin I 1.370 H* (0.000-0.034) ng/mL Total Protein (6.3-8.2) g/dL Albumin (3.5-5.0) g/dL LDL Cholesterol, Calc 114 H (0-99) mg/dL HDL Cholesterol 39 L (40-60) mg/dL 02/24/20 02/24/20 02/24/20 Range/Units 23:00 23:00 23:00 WBC (3.8-10.6) k/uL RBC 3.67 L (3.80-5.40) m/uL MCV 105.7 H (80.0-100.0) fL Lymphocytes # 0.3 L (1.0-4.8) k/uL PT 21.6 H (9.0-12.0) sec INR 2.2 H (<1.2) APTT 141.9 H* (22.0-30.0) sec D-Dimer (<0.60) mg/L FEU ABG pH (7.35-7.45) ABG pO2 (83-108) mmHg ABG O2 Saturation (94-97) % Sodium (137-145) mmol/L Glucose (74-99) mg/dL POC Glucose (mg/dL) (75-99) mg/dL Troponin I 1.010 H* (0.000-0.034) ng/mL Total Protein (6.3-8.2) g/dL Albumin (3.5-5.0) g/dL LDL Cholesterol, Calc (0-99) mg/dL HDL Cholesterol (40-60) mg/dL 02/24/20 02/25/20 02/25/20 Range/Units 23:02 03:41 03:41 WBC 3.4 L (3.8-10.6) k/uL RBC 3.53 L (3.80-5.40) m/uL MCV 105.4 H (80.0-100.0) fL Lymphocytes # 0.3 L (1.0-4.8) k/uL PT (9.0-12.0) sec INR (<1.2) APTT (22.0-30.0) sec D-Dimer (<0.60) mg/L FEU ABG pH (7.35-7.45) ABG pO2 (83-108) mmHg ABG O2 Saturation (94-97) % Sodium (137-145) mmol/L Glucose (74-99) mg/dL POC Glucose (mg/dL) 157 H (75-99) mg/dL Troponin I 1.810 H* (0.000-0.034) ng/mL Total Protein (6.3-8.2) g/dL Albumin (3.5-5.0) g/dL LDL Cholesterol, Calc (0-99) mg/dL HDL Cholesterol (40-60) mg/dL 02/25/20 02/25/20 Range/Units 03:41 06:58 WBC (3.8-10.6) k/uL RBC (3.80-5.40) m/uL MCV (80.0-100.0) fL Lymphocytes # (1.0-4.8) k/uL PT (9.0-12.0) sec INR (<1.2) APTT 36.3 H (22.0-30.0) sec D-Dimer (<0.60) mg/L FEU ABG pH (7.35-7.45) ABG pO2 (83-108) mmHg ABG O2 Saturation (94-97) % Sodium 136 L (137-145) mmol/L Glucose 137 H (74-99) mg/dL POC Glucose (mg/dL) (75-99) mg/dL Troponin I (0.000-0.034) ng/mL Total Protein 5.6 L (6.3-8.2) g/dL Albumin 3.0 L (3.5-5.0) g/dL LDL Cholesterol, Calc (0-99) mg/dL HDL Cholesterol (40-60) mg/dL Diabetes panel 02/24/20 02/24/20 02/25/20 Range/Units 19: 23:00 03:41 Sodium 137 136 L (137-145) mmol/L Potassium 4.4 4.0 (3.5-5.1) mmol/L Chloride 103 103 (98-107) mmol/L Carbon Dioxide 24 26 (22-30) mmol/L BUN 16 16 (7-17) mg/dL Creatinine 0.70 0.71 (0.52-1.04) mg/dL Glucose 119 H 137 H (74-99) mg/dL Calcium 9.7 8.7 (8.4-10.2) mg/dL AST 35 32 (14-36) U/L ALT 14 13 (4-34) U/L Alkaline Phosphatase 93 75 (38-126) U/L Total Protein 6.7 5.6 L (6.3-8.2) g/dL Albumin 3.8 3.0 L (3.5-5.0) g/dL Triglycerides 62 (<150) mg/dL HDL Cholesterol 39 L (40-60) mg/dL Thyroid panel 02/25/20 Range/Units 03:41 TSH 2.540 (0.465-4.680) mIU/L Calcium panel 02/24/20 02/25/20 Range/Units 19:01 03:41 Calcium 9.7 8.7 (8.4-10.2) mg/dL Albumin 3.8 3.0 L (3.5-5.0) g/dL Pituitary panel 02/24/20 02/25/20 Range/Units 19:01 03:41 Sodium 137 136 L (137-145) mmol/L Potassium 4.4 4.0 (3.5-5.1) mmol/L Chloride 103 103 (98-107) mmol/L Carbon Dioxide 24 26 (22-30) mmol/L BUN 16 16 (7-17) mg/dL Creatinine 0.70 0.71 (0.52-1.04) mg/dL Glucose 119 H 137 H (74-99) mg/dL Calcium 9.7 8.7 (8.4-10.2) mg/dL TSH 2.540 (0.465-4.680) mIU/L Adrenal panel 02/24/20 02/25/20 Range/Units 19:01 03:41 Sodium 137 136 L (137-145) mmol/L Potassium 4.4 4.0 (3.5-5.1) mmol/L Chloride 103 103 (98-107) mmol/L Carbon Dioxide 24 26 (22-30) mmol/L BUN 16 16 (7-17) mg/dL Creatinine 0.70 0.71 (0.52-1.04) mg/dL Glucose 119 H 137 H (74-99) mg/dL Calcium 9.7 8.7 (8.4-10.2) mg/dL Total Bilirubin 0.8 0.6 (0.2-1.3) mg/dL AST 35 32 (14-36) U/L ALT 14 13 (4-34) U/L Alkaline Phosphatase 93 75 (38-126) U/L Total Protein 6.7 5.6 L (6.3-8.2) g/dL Albumin 3.8 3.0 L (3.5-5.0) g/dL - Imaging Chest x-ray: report reviewed, image reviewed CT scan - chest: report reviewed, image reviewed Additional studies: Dr. Beck reviewed the cardiac catheterization films and the 2-D echocardiogram in films. Assessment and Plan Assessment: 1. Severe triple-vessel coronary artery disease 2. Acute non-ST elevation myocardial infarction, peak troponin level 1.810 3. Acute systolic heart failure with an overall left ventricular systolic function to be severely impaired with an ejection fraction between 25 and 30% and an admission BNP of 12,000 4. Severe mitral valve regurgitation 5. Severe tricuspid valve regurgitation 6. Bilateral pleural effusions 7. Nonspecific mediastinal lymph nodes of 1.[address] angio of her chest 8. History of psoriatic arthritis 9. History of sarcoidosis 10. History of ankylosis spondylosis 11. History of left vocal cord paralysis 12. History of asthma 13. Multiple drug ALLERGIES Plan: The patient was seen and examined at her bedside in the intensive care unit. Her chart and diagnostics were reviewed. She was seen and examined at her bedside by Dr. Sakina Beck with the patient is twin sister present. Dr. Beck reviewed the cardiac catheterization findings and 2-D echocardiogram findings with the patient. Preoperative testing and preoperative teaching has been initiated. Bedside FEV1 was completed which showed a protective value of 31%. Instructions for incentive spirometry were given to the patient and she is achieving 500 mL. A 5 m walk test was completed by exercise physiology with the patient, time 1:10.83 seconds, time 2: 8.50 seconds, time 3: 7.26 seconds. Due to the findings on the 2-D echocardiogram recommendations are for the patient to undergo a transesophageal echocardiogram which is tentatively scheduled for tomorrow to be performed by cardiology. Continue to optimize medically, she remains on a heparin drip per protocol, statin, beta edgar, aspirin and Lasix. Once her preoperative testing has been collected risks and benefits of myocardial revascularization surgery, possible mitral valve and tricuspid valve surgery with possible ASD repair will be further discussed with the patient by Dr. Beck. We will continue to follow her clinical progression and await the results of the transesophageal echocardiogram. Encourage use of her incentive spirometry 10 times every hour while awake. Medical management per primary care service and pulmonary critical care service. Cardiology recommendations per Dr. Grimm. Thank you Dr. Chase for this consult and we will look forward to working with you in the care of this patient. Time with Patient: Greater than 30
[2020-02-25 17:42] LABS: Appearance,Urine Cloudy (Clear); Bacteria,Urine Rare /hpf; Bilirubin,Urine Negative (Negative); Blood,Urine Moderate (Negative); Color,Urine Yellow; Glucose,Urine (UA) Negative (Negative); Hyaline Casts,Urine 1 /lpf (0-2); Ketones,Urine Negative (Negative); Leukocyte Esterase,Urine Small (Negative); Mucus,Urine Rare /hpf; Nitrite,Urine Negative (Negative); PH, Urine 5.5 (5.0-8.0); Protein,Urine 1+ (Negative); RBC,Urine 181 /hpf (0-5); Squamous Epithelial Cell,Urine 1 /hpf (0-4); Urobilinogen,Urine <2.0 mg/dL (<2.0); WBC,Urine <1 /hpf (0-5)
[2020-02-25 17:49] LABS: Specific Gravity,Urine >1.050 (1.001-1.035)
[2020-02-25] MEDS ORDERED: FUROSEMIDE 40 MG TAB PO STA (18:06)
[2020-02-25 18:18] LABS: Hepatitis A Antibody IgM Non-Reactive (Non-Reactive); Hepatitis B Core IgM Non-Reactive (Non-Reactive); Hepatitis B Surface Antigen Non-Reactive (Non-Reactive); Hepatitis C IgG Antibody Non-Reactive (Non-Reactive)
[2020-02-25 20:06] LABS: Hemoglobin A1C 4.6 % (4.0-6.0)
[2020-02-25] MEDS: HYDROcodone/APAP 7.5-325MG 1 EACH TAB PO PRN (20:38)
[2020-02-25] MEDS: MUPIROCIN 2% OINT 22 GM TUBE NASAL SCH (22:20)
[2020-02-26] MEDS: METOPROLOL TARTRATE 12.5 MG TAB PO SCH ×3 (00:12→20:08)
[2020-02-26] MEDS: HYDROcodone/APAP 7.5-325MG 1 EACH TAB PO PRN ×2 (04:59→22:10)
[2020-02-26 05:38] LABS: INR 1.1 (<1.2); Partial Thromboplastin Time 45.9 sec (22.0-30.0)
[2020-02-26 05:42] LABS: Basophils % (A) 1 %; Eosinophils # (A) 0.1 k/uL (0-0.7); Eosinophils % (A) 1 %; HCT 39.9 % (34.0-46.0); HGB 12.3 gm/dL (11.4-16.0); Hypochromasia Slight; Lymphocytes # (A) 1.1 k/uL (1.0-4.8); Lymphocytes % (A) 16 %; MCH 32.5 pg (25.0-35.0); Macrocytosis Moderate; Mean Platelet Volume 8.7; Monocytes # (A) 0.4 k/uL (0-1.0); Monocytes % (A) 6 %; Neutrophils # (A) 4.9 k/uL (1.3-7.7); Neutrophils % (A) 74 %; Platelet Count 209 k/uL (150-450); RDW 13.8 % (11.5-15.5); WBC 6.6 k/uL (3.8-10.6)
[2020-02-26 05:49] LABS: Potassium 3.7 mmol/L (3.5-5.1)
[2020-02-26] MEDS: POTASSIUM CHLORIDE 10 MEQ in WATER FOR INJECTION 1 100ML.BAG IVPB SCH ×2 (06:37→09:14)
[2020-02-26] MEDS: SODIUM CHLORIDE 0.9% 1,000 ML IV SCH (07:45)
--- NOTE | 2020-02-26 08:07 | P.PN ---
Subjective This is a pleasant 69 years old female with past medical history of asthma, back pain status post back fusion surgery, psoriasis, Pham's esophagus, degenerative disc disease, sarcoidosis, rheumatoid arthritis, paralyzed left vocal cord. She is a patient of Dr. Fall as her primary doctor. She presents because of dyspnea on and off of 2 days' duration thought this due to ALLERGIC reaction with normal respiratory solution she came to the hospital and found to have CHF. She denies chest pain, no coughing, no abdominal pain, no change in her bowel habits. No fever This morning patient is fully awake and alert, she is not in distress and she is able to smile. Blood pressure on the low side 91/63 this morning, she is saturating 93% on 4 L oxygen, heart rate is 87 and patient is afebrile. Chest x-ray: CHF. CT of the chest with IV contrast: Bilateral pleural effusion and a large anterior mediastinal lymph nodes 1.5 cm and interstitial edema, no pulmonary embolism. EKG showing slightly elevated ST in the anteroapical and miguel-septal leads . 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 No problem regarding her urine or bowel. No fever. Rest of vitals are stable blood pressure on the low normal systolic and this morning is 90/57, Patient remains on heparin drip and intravenous Lasix twice a day of, also she is on aspirin and metoprolol. Labs including CBC and BMP are stable. Occult blood in stool is negative and hemoglobin is stable Her last ejection fraction was about 25-30% and cardiology team are planning to do YNES today, she is undergoing workup for possible bypass surgery. Surgical team was consulted Review of Systems CONSTITUTIONAL: No fever, no malaise, no fatigue. HEENT: No recent visual problems or hearing problems. Denied any sore throat. CARDIOVASCULAR: no palpitations, no syncope. PULMONARY: no cough, no hemoptysis. GASTROINTESTINAL: No diarrhea, no nausea, no vomiting, no abdominal pain. Normoactive bowel sounds. NEUROLOGICAL: No headaches, no weakness, no numbness. HEMATOLOGICAL: Denies any bleeding or petechiae. GENITOURINARY: Denies any burning micturition, frequency, or urgency. MUSCULOSKELETAL/RHEUMATOLOGICAL: Denies any joint pain, swelling, or any muscle pain. ENDOCRINE: Denies any polyuria or polydipsia. Active Medications Generic Name Dose Route Start Last Admin Trade Name Freq PRN Reason Stop Dose Admin Hydrocodone Bitart/Acetaminophen 1 each 02/25/20 19:32 02/26/20 04:59 [place] 7.5-325 PO 1 each Q6H PRN Administration Pain Aspirin 81 mg 02/25/20 09:00 02/25/20 09:52 Aspirin PO 81 mg DAILY CARLEE Administration Atorvastatin Calcium 80 mg 02/25/20 09:00 02/25/20 09:53 Lipitor PO 80 mg DAILY CARLEE Administration Famotidine 20 mg 02/25/20 09:00 02/25/20 20:02 Pepcid IV 20 mg Q12HR CARLEE Administration Heparin Sodium (Porcine) 0 unit 02/24/20 20:42 02/25/20 12:01 Heparin IV 1,700 unit PER PROTOCOL PRN Administration Low PTT Protocol Heparin Sodium (Porcine) 0 unit 02/24/20 22:33 Heparin IV PER PROTOCOL PRN Low PTT Protocol Heparin Sodium/Sodium Chloride 250 mls @ 6.858 mls/hr 02/24/20 20:45 02/25/20 09:19 25,000 unit/ Sodium Chloride IV 14 units/kg/hr .Q24H CARLEE 8.001 mls/hr Titration Protocol 12 UNITS/KG/HR Potassium Chloride 10 meq/ IV 100 mls @ 100 mls/hr 02/26/20 06:30 02/26/20 06:37 Solution IVPB 02/26/20 08:29 100 mls/hr Q1H CARLEE Administration Protocol Metoprolol Tartrate 12.5 mg 02/25/20 09:00 02/26/20 00:12 Lopressor PO 12.5 mg BID CARLEE Administration Miscellaneous Information 1 each 02/24/20 22:30 Rx Info: Iv Contrast Was Given MISCELLANE 02/26/20 22:30 DAILY PRN Per Protocol Mupirocin 1 applic 02/25/20 21:00 02/25/20 22:20 Bactroban Oint NASAL 03/01/20 21:01 1 applic BID CARLEE Administration Naloxone HCl 0.2 mg 02/24/20 21:20 Narcan IV Q2M PRN Opioid Reversal Spironolactone 25 mg 02/25/20 09:00 02/25/20 09:54 Aldactone PO 25 mg DAILY CARLEE Administration Objective - Vital Signs Vital signs: Vital Signs Temp 97.6 F 02/26/20 04:00 Pulse 80 02/26/20 07:00 Resp 20 02/26/20 07:35 BP 90/57 02/26/20 07:00 Pulse Ox 95 02/26/20 07:00 Intake & Output 02/25/20 02/26/20 02/26/20 18:59 06:59 18:59 Intake Total 445.954 120 110 Output Total 465 928 35 Balance -19.046 -808 75 Weight 66.7 kg Intake: IV 110 120 10 kvo 110 120 10 Intake, IV Titration 85.954 100 Amount Heparin Sod,Pork in 0.45% 85.954 NaCl 25,000 unit In 0.45 % NaCl 1 250ml.bag @ 12 UNITS/KG/HR 6.858 mls/hr IV .Q24H CARLEE Rx#: [id number] Potassium Chloride 10 meq 100 In Water For Injection 1 100ml.bag @ 100 mls/hr IVPB Q1H CARLEE Rx#: [id number] Oral 250 Output: Urine 465 928 35 Other: Voiding Method Indwelling Catheter Indwelling Catheter Indwelling Catheter - Exam GENERAL: The patient is alert and oriented x3, not in any acute distress. Well developed, well nourished. HEENT: Pupils are round and equally reacting to light. EOMI. No scleral icterus. No conjunctival pallor. Normocephalic, atraumatic. No pharyngeal erythema. No thyromegaly. CARDIOVASCULAR: S1 and S2 present. No murmurs, rubs, or gallops. PULMONARY: Chest is clear to auscultation, no wheezing or crackles. -ABDOMEN: Soft, nontender, nondistended, normoactive bowel sounds. No palpable organomegaly. Cheung catheter in place with clear urine MUSCULOSKELETAL: No joint swelling or deformity. EXTREMITIES: No cyanosis, clubbing, or pedal edema. NEUROLOGICAL: Gross neurological examination did not reveal any focal deficits. SKIN: No rashes. no petechiae. - Labs CBC & Chem 7: 02/26/20 04:34 02/26/20 04:34 Labs: Abnormal Lab Results - Last 24 Hours (Table) 02/25/20 02/25/20 02/25/20 Range/Units 03:41 06:58 16:30 MCV (80.0-100.0) fL APTT 36.3 H (22.0-30.0) sec Sodium 136 L (137-145) mmol/L BUN (7-17) mg/dL Glucose 137 H (74-99) mg/dL Total Protein 5.6 L (6.3-8.2) g/dL Albumin 3.0 L (3.5-5.0) g/dL Urine Appearance Cloudy H (Clear) Ur Specific [place] >1.050 H (1.001-1.035) Urine Protein 1+ H (Negative) Urine Blood Moderate H (Negative) Ur Leukocyte Esterase Small H (Negative) Urine RBC 181 H (0-5) /hpf Urine Bacteria Rare H (None) /hpf Urine Mucus Rare H (None) /hpf 02/25/20 02/26/20 02/26/20 Range/Units 18:11 04:34 04:34 MCV 105.0 H (80.0-100.0) fL APTT 45.2 H 45.9 H (22.0-30.0) sec Sodium (137-145) mmol/L BUN (7-17) mg/dL Glucose (74-99) mg/dL Total Protein (6.3-8.2) g/dL Albumin (3.5-5.0) g/dL Urine Appearance (Clear) Ur Specific [place] (1.001-1.035) Urine Protein (Negative) Urine Blood (Negative) Ur Leukocyte Esterase (Negative) Urine RBC (0-5) /hpf Urine Bacteria (None) /hpf Urine Mucus (None) /hpf 02/26/20 Range/Units 04:34 MCV (80.0-100.0) fL APTT (22.0-30.0) sec Sodium (137-145) mmol/L BUN 23 H (7-17) mg/dL Glucose (74-99) mg/dL Total Protein (6.3-8.2) g/dL Albumin (3.5-5.0) g/dL Urine Appearance (Clear) Ur Specific [place] (1.001-1.035) Urine Protein (Negative) Urine Blood (Negative) Ur Leukocyte Esterase (Negative) Urine RBC (0-5) /hpf Urine Bacteria (None) /hpf Urine Mucus (None) /hpf Microbiology - Last 24 Hours (Table) 02/25/20 14:50 Nasal Screen MRSA/MSSA - Preliminary Nasal Swab Assessment and Plan Assessment: Non-STEMI secondary to Acute coronary artery syndrome with triple-vessel disease, totally occluded mid LAD, critical stenosis in the left circumflex and diagonal branch of the RCA Acute systolic CHF with bilateral pleural effusion Enlarged mediastinal lymph nodes 1.5 cm History of asthma, not an active issue Psoriasis and psoriatic arthritis Pham's esophagus chronic back pain status post back fusion surgery 3 Degenerative disc disease Sarcoidosis Rheumatoid arthritis Paralyzed left vocal cord Plan: This is a pleasant 69 years old female who presents with ACS and CHF. Continue with aspirin and heparin drip. Cardiology and pulmonary/critical care consult. Patient failed recanalization by cardiac cath and his been evaluated for possible bypass surgery and aortic valve repair/replacement. cardiothoracic surgery has been consulted Labs and medication were reviewed.. Continue same treatment. Continue with symptomatic treatment. Resume home medication. Monitor lytes and vitals. DVT and GI prophylaxis. Further recommendations of the clinical course of the p atient DVT prophylaxis: heparin GI Prophylaxis: Pepcid Prognosis is guarded
[2020-02-26] MEDS ORDERED: fentaNYL (PF) 50 MCG/ML 2 ML AMP ONE (08:08)
[2020-02-26] MEDS ORDERED: MIDAZOLAM 2 MG/2 ML VIAL ONE (08:09)
[2020-02-26] MEDS: HEPARIN SOD,PORK IN 0.45% NACL 25,000 UNIT in 0.45% NACL 1 250ML.BAG IV SCH ×2 (08:51→20:17)
[2020-02-26] MEDS ORDERED: DIGOXIN 125 MCG TAB PO SCH (09:00)
--- NOTE | 2020-02-26 09:23 | P.TEE ---
Description of Procedure(s): Date of Procedure: 02/26/20 Preoperative Diagnosis: Ischemic cardiomyopathy, severe mitral and tricuspid regurgitation Postoperative Diagnosis: Same Procedure(s) Performed: YNES examination Description of Procedure: INDICATION: Assessment of her mitral and tricuspid regurgitation CONSENT: . Verbal consent was obtained from patient PROCEDURE: , Patient was prepped and draped in the ICU setting. Patient was given IV Versed 0.5 mg and 12.5 of fentanyl for sedation. The throat was sprayed with Cetacaine. A lubricated Omni probe was introduced in the oropharynx and advanced into the esophagus. Multiple views were obtained. Color, pulsed and continuous Doppler was done. Saline contrast bubble injection was performed. Patient tolerated the procedure well FINDINGS: . The aortic valve is tricuspid with trace regurgitation. The mitral valve appeared to be normal structurally central regurgitation, most probably secondary to left ventricular dilation. The PISA value is 0.9. There is a moderate to severe mitral regurgitation. The tricuspid valve shows severe tricuspid regurgitation. The calculated right ventricle systolic blood pressure is about 85. There is dilatation of both atria and then patient reports ventricle. Left ventricle shows severe hypokinesis of the apical segments with an ejection fraction about 20%. The left atrial appendage is free of any clot. The interatrial septum appeared to be intact. No definite shunt is documented. Saline contrast injection did not reveal crossing of bubbles across the intra- atrial septum IMPRESSION: #1. Moderate to severe mitral regurgitation. #2. Severe tricuspid regurgitation. #3. Severe pulmonary hypertension. #4. Severe left ventricle dysfunction with hypokinesia of the apical segments. Ejection fraction probably around 30%. #5. Biatrial enlargement. #6. Biventricular dilation. #7. No clot in the left atrial appendage PLAN: . Continued medical therapy. Consider possible CABG with mitral and tricuspid valve repair. Prognosis is guarded
[2020-02-26] MEDS: FAMOTIDINE 20 MG/2 ML VIAL IV SCH ×2 (09:31→20:17)
[2020-02-26] MEDS: FUROSEMIDE 10 MG/ML 2 ML VIAL IV SCH ×2 (10:06→20:17)
[2020-02-26] MEDS: DIGOXIN 250 MCG/ML 2 ML AMP IVP SCH ×2 (11:59→18:18)
[2020-02-26] MEDS: ASPIRIN 81 MG PO SCH (12:02)
[2020-02-26] MEDS: SPIRONOLACTONE 25 MG TAB PO SCH (12:02)
--- NOTE | 2020-02-26 12:02 | P.PN ---
Subjective Progress Note Date: 02/26/20 On today's evaluation of 02/26/2020 the patient being seen for a follow-up. The patient is in intensive care unit. The patient is currently being optimized in regards to her CHF possible cardiac surgery as the patient has significant mitral regurgitation along with decompensated heart failure and coronary artery disease. The patient is still on IV Lasix. She is feeling better overall and she is less short of breath and she has no significant orthopnea on today's evaluation. She is making adequate amount of urine output. Chest x-ray from today shows about the pleural effusions. She remains on IV heparin. She is on 3 days of oxygen by nasal cannula with a pulse ox 97%. A YNES was done today that showed moderate to severe mitral regurgitation, severe tricuspid regurgitation, severe pulmonary hypertension, severe LV dysfunction with hypokinesis of the apical segments with an ejection fraction of 30%. There is also biatrial enlargement, biventricular dilatation without any clots and a atrial appendage. The patient is still being considered for coronary bypass surgery, mitral valve repair. Cardiac surgeries on the case. Meanwhile, digoxin was added to her regimen per cooking chef recommendation. Her blood pressure is borderline low. Nevertheless the mean arterial pressures above 60 and will continue gentle diuresis with Lasix 20 mg IV push every 12 hours. Objective - Vital Signs Vital signs: Vital Signs Temp 98.2 F 02/26/20 08:00 Pulse 80 02/26/20 11:15 Resp 24 02/26/20 11:15 BP 95/60 02/26/20 11:15 Pulse Ox 94 L 02/26/20 11:15 Intake & Output 02/25/20 02/26/20 02/26/20 18:59 06:59 18:59 Intake Total 445.954 284.046 250 Output Total 465 928 345 Balance -19.046 -643.954 -95 Weight 66.7 kg Intake: IV 110 120 150 Potassium Chloride 10 meq 100 In Water For Injection 1 100ml.bag @ 100 mls/hr IVPB Q1H ON LICENSE OF [facility] Rx#: [id number] kvo 110 120 50 Intake, IV Titration 85.954 164.046 100 Amount Heparin Sod,Pork in 0.45% 85.954 164.046 NaCl 25,000 unit In 0.45 % NaCl 1 250ml.bag @ 12 UNITS/KG/HR 6.858 mls/hr IV .Q24H CARLEE Rx#: [id number] Potassium Chloride 10 meq 100 In Water For Injection 1 100ml.bag @ 100 mls/hr IVPB Q1H CARLEE Rx#: [id number] Oral 250 Output: Urine 465 928 345 Other: Voiding Method Indwelling Catheter Indwelling Catheter Indwelling Catheter - Exam The patient appeared well nourished and normally developed. Vital signs as documented. Head exam is unremarkable. No scleral icterus or corneal arcus noted. Neck is without jugular venous distension, thyromegaly, or carotid bruits. Carotid upstrokes are brisk bilaterally. Lungs are diminished breath sounds bilaterally especially lung bases along with some crackers the lung bases bilaterally.. Cardiac exam reveals the PMI to be normally sized and situated. Rhythm is regular. First and second heart sounds normal. No murmurs, rubs or gallops. Abdominal exam reveals normal bowel sounds, no masses, no organomegaly and no aortic enlargement. Extremities are nonedematous and both femoral and p edal pulses are normal.Examination of the skin revealed no evidence of significant rashes, suspicious appearing nevi or other concerning lesions. Neurologically the patient is awake and alert and there is no focal neurological deficit. - Labs CBC & Chem 7: 02/26/20 04:34 02/26/20 04:34 Labs: Abnormal Lab Results - Last 24 Hours (Table) 02/25/20 02/25/20 02/26/20 Range/Units 16:30 18:11 04:34 MCV 105.0 H (80.0-100.0) fL APTT 45.2 H (22.0-30.0) sec BUN (7-17) mg/dL Urine Appearance Cloudy H (Clear) Ur Specific [place] >1.050 H (1.001-1.035) Urine Protein 1+ H (Negative) Urine Blood Moderate H (Negative) Ur Leukocyte Esterase Small H (Negative) Urine RBC 181 H (0-5) /hpf Urine Bacteria Rare H (None) /hpf Urine Mucus Rare H (None) /hpf 02/26/20 02/26/20 Range/Units 04:34 04:34 MCV (80.0-100.0) fL APTT 45.9 H (22.0-30.0) sec BUN 23 H (7-17) mg/dL Urine Appearance (Clear) Ur Specific [place] (1.001-1.035) Urine Protein (Negative) Urine Blood (Negative) Ur Leukocyte Esterase (Negative) Urine RBC (0-5) /hpf Urine Bacteria (None) /hpf Urine Mucus (None) /hpf Microbiology - Last 24 Hours (Table) 02/25/20 14:50 Nasal Screen MRSA/MSSA - Preliminary Nasal Swab Assessment and Plan Plan: 1 acute non-ST segment elevation myocardial infarction, troponin peaked at 1.8 2 triple-vessel coronary artery disease with complete occlusion of the mid LAD based on cardiac catheterization. Failed angioplasty and stenting 3 acute systolic heart failure which is of a new onset and there is a significant drop in the patient's LV ejection fraction which is down to 25-30%. The YNES also confirmed presence of significant valvular heart disease with moderate to severe mitral regurgitation, severe tricuspid regurgitation, severe pulmonary hypertension, biatrial enlargement, biventricular dilatation and there was no evidence of any clotting in the left atrial appendage. 4 acute hypoxic respiratory failure secondary to above 5 bilateral pleural effusion most likely secondary to CHF as the patient also has some interstitial edema 6 nonspecific mediastinal lymph nodes, unchanged compared to CAT scan of the chest from 2012 7 sarcoidosis currently inactive in stable 8 history of ankylosing spondylitis 9 history of psoriatic arthritis 10 questionable history of left vocal cord paralysis, no stridor at this point in time 11 mild intermittent bronchial asthma 12 multiple drug ALLERGIES Plan Keep the patient intensive care unit Awaiting his cardiac surgery consultation in that regard Obtain ultrasound of the carotids and there is no evidence of any significant stenosis Continue with Lasix 20 mg every 12 hours to optimize CHF about the pleural effusions Digoxin was added by cardiology 0.25 mg 2 doses and following that 0.125 mg on a daily basis. continue Aldactone Provide the patient incentive spirometer Continue aspirin Continue metoprolol 12.5 mg by mouth twice a day Continue Aldactone Continue IV heparin The bedside spirometry showed a 41. Nevertheless is an underestimate of the patient is in heart failure with bilateral pleural effusion and of course FEV1 is not going to be accurate reflection of her underlying airway capacity. We'll continue to follow make further recommendations as we are working up this patient for cardiac surgery. Meanwhile the patient will need possibly another ENT evaluation to look of the left vocal cord specially if there are plans to proceed with cardiac surgery. On exam, she does not have any interstitial lung disease or stridor to indicate upper airway obstruction. I will consult ENT for now in this regardWe'll continue to follow.
[2020-02-26] MEDS: MUPIROCIN 2% OINT 22 GM TUBE NASAL SCH ×2 (12:03→20:25)
[2020-02-26] MEDS: ATORVASTATIN 80 MG TAB PO SCH (12:05)
--- NOTE | 2020-02-26 12:11 | P.PN ---
Subjective Progress Note Date: 02/26/20 Principal diagnosis: This is a 69-year-old female patient who is followed by Dr. Rubén Fall on an outpatient basis. She has a past medical history significant for asthma, anxie ty, sarcoidosis, psoriasis with psoriatic arthritis, Pham esophagus, spondylitis alkalosis, migraine headaches, chronic back pain status post back fusion surgery, rheumatoid arthritis, paralyzed left vocal cord, multiple medication ALLERGIES and varicose vein status post vein stripping. Recently, the patient has had complaints of chest tightness which has been radiating to her neck and jaw associated with progressive shortness of breath. Due to the complaints of chest tightness and shortness of breath she presented to the emergency department here at [facility]. She had taken a [place] at home which was a different color than what she normally takes and felt she was having an ALLERGIC reaction due to the dye in the pill coloring. A 12-lead EKG was completed in the emergency department which showed Q waves in the anterior leads with mild ST elevations in leads V1, and V2. She denies any complaints of nausea, vomiting, fever, chills, presyncope, syncope or palpitat ions. The patient does report that she has been having to recline her bed recently at night due to her shortness of breath. A chest x-ray was completed in the emergency department which showed congestive heart failure with pleural effusions. Her initial lab work demonstrated a WBC count of 7.2, hemoglobin 12.9, platelets 198, d-dimer 1.04, BUN 16, creatinine 0.70, glucose 119, BNP 12,400, and troponin elevated at 1.370. She did have serial troponins drawn and were as high as 1.810. To rule out pulmonary embolus a CT of the chest in February was completed which was negative for pulmonary embolism, although did demonstrate pleural effusions with pulmonary interstitial edema consistent with congestive heart failure. It also demonstrated some enlarged anterior mediastinal lymph nodes up to 1.5 cm and some subcarinal lymph nodes up to 1.5 cm. Subsequently, due to her presenting symptoms and positive troponins a consult was placed to Dr. Lundberg from cardiology and the patient was taken for an urgent cardiac catheterization which demonstrated severe triple-vessel coronary artery disease with a totally occluded mid left anterior descending coronary artery, a 90-95 ostial stenosis to her circumflex coronary artery and a 70-80% stenosis to her mid right coronary artery. Due to the findings on the cardiac catheterization and percutaneous intervention was attempted but was unsuccessful recannulization of her chronic total occlusion of the mid left anterior descending coronary artery. For further evaluation a 2-D echocardiogram was completed which demonstrated an overall left ventricular systolic function to be severely impaired with an ejection fraction between 25 and 30%, a possible atrial septal defect, severe mitral valve regurgitation and severe tricuspid valve regurgitation. Due to the patient's presenting symptoms, positive troponins, cardiac catheterization findings and findings on the 2-D echocardiogram a consult was placed to Dr. Sakina Beck from cardiothoracic surgery for further evaluation and treatment recommendations. The patient seen and examined at the bedside on 02/26/2020. She denies any chest pain, states shortness of breath is better. She is in good spirits. She had a transesophageal echocardiogram completed this morning demonstrating severe left ventricular dysfunction with hypokinesia of the apical segments with ejection fraction 20-30%, biatrial enlargement, biventricular dilatation, moderate to severe mitral regurgitation, severe tricuspid regurgitation with severe pulmonary hypertension. She has been diuresing with IV Lasix and currently has a negative fluid balance. Awaiting determination for timing of surgery Objective - Vital Signs Vital signs: Vital Signs Temp 98.2 F 02/26/20 08:00 Pulse 80 02/26/20 11:15 Resp 24 02/26/20 11:15 BP 95/60 02/26/20 11:15 Pulse Ox 94 L 02/26/20 11:15 Intake & Output 02/25/20 02/26/20 02/26/20 18:59 06:59 18:59 Intake Total 445.954 284.046 250 Output Total 465 928 345 Balance -19.046 -643.954 -95 Weight 66.7 kg Intake: IV 110 120 150 Potassium Chloride 10 meq 100 In Water For Injection 1 100ml.bag @ 100 mls/hr IVPB Q1H [facility] Rx#: [id number] kvo 110 120 50 Intake, IV Titration 85.954 164.046 100 Amount Heparin Sod,Pork in 0.45% 85.954 164.046 NaCl 25,000 unit In 0.45 % NaCl 1 250ml.bag @ 12 UNITS/KG/HR 6.858 mls/hr IV .Q24H [facility] Rx#: [id number] Potassium Chloride 10 meq 100 In Water For Injection 1 100ml.bag @ 100 mls/hr IVPB Q1H [facility] Rx#: [id number] Oral 250 Output: Urine 465 928 345 Other: Voiding Method Indwelling Catheter Indwelling Catheter Indwelling Catheter - Constitutional General appearance: Present: cooperative, no acute distress, obese - Respiratory Details: Lungs sounds diminished bilaterally with few scattered crackles in the bases. Respirations even, nonlabored. Currently on 3 L nasal cannula with oxygen saturation 94%. Only able to achieve 500 mL on her incentive spirometry. Weak cough. - Cardiovascular Details: S1, S2 present. Regular rate and rhythm, sinus rhythm on telemetry. Palpable peripheral pulses bilaterally. No edema present. No calf pain or tenderness noted. - Gastrointestinal Gastrointestinal Comment(s): Abdomen soft, nontender, nondistended. Active bowel sounds present 4 quadr ants. - Genitourinary Genitourinary Comment(s): Cheung present draining clear, yellow urine. Output overnight 35-80 mL/h, 250 mL since IV Lasix given - Integumentary Integumentary Comment(s): Skin is warm and dry with evidence of good perfusion - Neurologic Neurologic: Present: CNII-XII intact - Musculoskeletal Musculoskeletal: Present: strength equal bilaterally - Psychiatric Psychiatric: Present: A&O x's 3, appropriate affect, intact judgment & insight - Allied health notes Allied health notes reviewed: nursing - Labs CBC & Chem 7: 02/26/20 04:34 02/26/20 04:34 Labs: Abnormal Lab Results - Last 24 Hours (Table) 02/25/20 02/25/20 02/26/20 Range/Units 16:30 18:11 04:34 MCV 105.0 H (80.0-100.0) fL APTT 45.2 H (22.0-30.0) sec BUN (7-17) mg/dL Urine Appearance Cloudy H (Clear) Ur Specific [place] >1.050 H (1.001-1.035) Urine Protein 1+ H (Negative) Urine Blood Moderate H (Negative) Ur Leukocyte Esterase Small H (Negative) Urine RBC 181 H (0-5) /hpf Urine Bacteria Rare H (None) /hpf Urine Mucus Rare H (None) /hpf 02/26/20 02/26/20 Range/Units 04:34 04:34 MCV (80.0-100.0) fL APTT 45.9 H (22.0-30.0) sec BUN 23 H (7-17) mg/dL Urine Appearance (Clear) Ur Specific [place] (1.001-1.035) Urine Protein (Negative) Urine Blood (Negative) Ur Leukocyte Esterase (Negative) Urine RBC (0-5) /hpf Urine Bacteria (None) /hpf Urine Mucus (None) /hpf Microbiology - Last 24 Hours (Table) 02/25/20 14:50 Nasal Screen MRSA/MSSA - Preliminary Nasal Swab Assessment and Plan Assessment: 1. Severe triple-vessel coronary artery disease 2. Acute non-ST elevation myocardial infarction, peak troponin level 1.810 3. Acute systolic heart failure with an overall left ventricular systolic function to be severely impaired with an ejection fraction between 25 and 30% and an admission BNP of 12,000 4. Severe mitral valve regurgitation 5. Severe tricuspid valve regurgitation with severe pulmonary hypertension 6. Bilateral pleural effusions 7. Nonspecific mediastinal lymph nodes of 1.[address] angio of her chest 8. History of psoriatic arthritis 9. History of sarcoidosis 10. History of ankylosis spondylosis 11. History of left vocal cord paralysis 12. History of asthma 13. Multiple drug ALLERGIES 14. Severe pulmonary disease with preoperative FEV1 31% of predicted Plan: 1. Continue to optimize medically with aspirin, statin, beta edgar, IV heparin, Lasix and Aldactone 2. Wean O2 as tolerated. Encourage incentive spirometry use. Likely will repeat bedside spirometry once patient has been maximized on medical therapy 3. Increase activity as tolerated 4. STS risk score calculated, patient is extremely high risk for surgery, will be discussed with the patient 5. Dr. Beck will review transesophageal echocardiogram today. Will discuss plans for surgery with the patient. 6. ENT has been consulted for evaluation of left vocal cord paralysis 7. Continue preoperative teaching 8. Medical management of her comorbidities per primary care service, cardiology, pulmonology 9. More recommendations to follow Time with Patient: Greater than 30
[2020-02-26] MEDS ORDERED: Potassium Replacement Protocol 1 EACH MISC MISCELLANE PRN (21:26)
[2020-02-26] MEDS ORDERED: POTASSIUM CHLORIDE ER 20 MEQ TAB.ER PO SCH (22:00)
[2020-02-27] MEDS: HYDROcodone/APAP 7.5-325MG 1 EACH TAB PO PRN ×2 (04:10→23:46)
[2020-02-27 05:23] LABS: Basophils % (A) 1 %; Eosinophils # (A) 0.2 k/uL (0-0.7); Eosinophils % (A) 3 %; HCT 37.5 % (34.0-46.0); HGB 11.8 gm/dL (11.4-16.0); Hypochromasia Slight; Lymphocytes # (A) 0.9 k/uL (1.0-4.8); Lymphocytes % (A) 13 %; MCH 32.9 pg (25.0-35.0); MCHC 31.5 g/dL (31.0-37.0); MCV 104.3 fL (80.0-100.0); Macrocytosis Slight; Mean Platelet Volume 8.2; Monocytes # (A) 0.5 k/uL (0-1.0); Monocytes % (A) 7 %; Neutrophils % (A) 75 %; Platelet Count 196 k/uL (150-450); RDW 13.8 % (11.5-15.5); WBC 6.7 k/uL (3.8-10.6)
[2020-02-27 05:37] LABS: INR 1.1 (<1.2); Partial Thromboplastin Time 39.9 sec (22.0-30.0); Prothrombin Time 11.1 sec (9.0-12.0)
[2020-02-27 05:47] LABS: African American GFR (CKD) >90 (>60 ml/min/1.73 sqM); Anion Gap 4 mmol/L; Blood Urea Nitrogen 19 mg/dL (7-17); Calcium 8.7 mg/dL (8.4-10.2); Carbon Dioxide 29 mmol/L (22-30); Chloride 103 mmol/L (98-107); Glucose 93 mg/dL (74-99); Magnesium 2.1 mg/dL (1.6-2.3); Non-African American GFR(CKD) 80 (>60 ml/min/1.73 sqM); Potassium 4.1 mmol/L (3.5-5.1); Sodium 136 mmol/L (137-145)
[2020-02-27] MEDS: HEPARIN SODIUM,PORCINE 5,000 UNIT/ML 1 ML VIAL IV PRN (05:51)
--- NOTE | 2020-02-27 07:38 | P.PN ---
Subjective This is a pleasant 69 years old female with past medical history of asthma, back pain status post back fusion surgery, psoriasis, Pham's esophagus, degenerative disc disease, sarcoidosis, rheumatoid arthritis, paralyzed left vocal cord. She is a patient of Dr. Fall as her primary doctor. She presents because of dyspnea on and off of 2 days' duration thought this due to ALLERGIC reaction with normal respiratory solution she came to the hospital and found to have CHF. She denies chest pain, no coughing, no abdominal pain, no change in her bowel habits. No fever This morning patient is fully awake and alert, she is not in distress and she is able to smile. Blood pressure on the low side 91/63 this morning, she is saturating 93% on 4 L oxygen, heart rate is 87 and patient is afebrile. Chest x-ray: CHF. CT of the chest with IV contrast: Bilateral pleural effusion and a large anterior mediastinal lymph nodes 1.5 cm and interstitial edema, no pulmonary embolism. EKG showing slightly elevated ST in the anteroapical and miguel-septal leads . 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 No problem regarding her urine or bowel. No fever. Rest of vitals are stable blood pressure on the low normal systolic and this morning is 90/57, Patient remains on heparin drip and intravenous Lasix twice a day of, also she is on aspirin and metoprolol. Labs including CBC and BMP are stable. Occult blood in stool is negative and hemoglobin is stable Her last ejection fraction was about 25-30% and cardiology team are planning to do YNES today, she is undergoing workup for possible bypass surgery. Surgical team was consulted 02/27/2020 Patient is clinically is the same. No chest pain or dyspnea. Blood pressure 93/60, heart rate 57, patient is afebrile. However she still have active problems as shows in the YNES done yesterday which showed moderate to severe mitral regurgitation, severe tricuspid regurgitation, severe pulmonary hypertension, also LV ejection fraction as low as 30% with apical hypokinesia. Patient in the meantime remains on heparin drip and IV Lasix while still undergoing workup for possible bypass surgery. Surgery team already on the case Objective - Vital Signs Vital signs: Vital Signs Temp 98 F 02/27/20 04:00 Pulse 57 L 02/27/20 07:00 Resp 17 02/27/20 07:00 BP 93/60 02/27/20 07:00 Pulse Ox 94 L 02/27/20 07:00 Intake & Output 02/26/20 02/27/20 02/27/20 18:59 06:59 18:59 Intake Total 420 397.621 20 Output Total 965 1130 33 Balance -545 -732.379 -13 Weight 68.084 kg Intake: IV 220 230 20 0.9 @ 20 120 230 20 Potassium Chloride 10 meq 100 In Water For Injection 1 100ml.bag @ 100 mls/hr IVPB Q1H [facility] Rx#: [id number] Intake, IV Titration 100 167.621 Amount Heparin Sod,Pork in 0.45% 167.621 NaCl 25,000 unit In 0.45 % NaCl 1 250ml.bag @ 12 UNITS/KG/HR 6.858 mls/hr IV .Q24H [facility] Rx#: [id number] Potassium Chloride 10 meq 100 In Water For Injection 1 100ml.bag @ 100 mls/hr IVPB Q1H [facility] Rx#: [id number] Oral 100 Output: Urine 965 1130 33 Other: Voiding Method Indwelling Catheter Indwelling Catheter # Bowel Movements 1 - Exam GENERAL: The patient is alert and oriented x3, not in any acute distress. Well developed, well nourished. HEENT: Pupils are round and equally reacting to light. EOMI. No scleral icterus. No conjunctival pallor. Normocephalic, atraumatic. No pharyngeal erythema. No thyromegaly. CARDIOVASCULAR: S1 and S2 present. No murmurs, rubs, or gallops. PULMONARY: Chest is clear to auscultation, no wheezing or crackles. -ABDOMEN: Soft, nontender, nondistended, normoactive bowel sounds. No palpable organomegaly. Cheung catheter in place with clear urine MUSCULOSKELETAL: No joint swelling or deformity. EXTREMITIES: No cyanosis, clubbing, or pedal edema. NEUROLOGICAL: Gross neurological examination did not reveal any focal deficits. SKIN: No rashes. no petechiae. - Labs CBC & Chem 7: 02/27/20 04:35 02/27/20 04:35 Labs: Abnormal Lab Results - Last 24 Hours (Table) 02/27/20 02/27/20 02/27/20 Range/Units 04:35 04:35 04:35 RBC 3.60 L (3.80-5.40) m/uL MCV 104.3 H (80.0-100.0) fL Lymphocytes # 0.9 L (1.0-4.8) k/uL APTT 39.9 H (22.0-30.0) sec Sodium 136 L (137-145) mmol/L BUN 19 H (7-17) mg/dL Assessment and Plan Assessment: Non-STEMI secondary to Acute coronary artery syndrome with triple-vessel dise ase, totally occluded mid LAD, critical stenosis in the left circumflex and diagonal branch of the RCA Acute systolic CHF with bilateral pleural effusion Enlarged mediastinal lymph nodes 1.5 cm History of asthma, not an active issue Psoriasis and psoriatic arthritis Pham's esophagus chronic back pain status post back fusion surgery 3 Degenerative disc disease Sarcoidosis Rheumatoid arthritis Paralyzed left vocal cord Plan: This is a pleasant 69 years old female who presents with ACS and CHF. Continue with aspirin and heparin drip. Cardiology and pulmonary/critical care consult. Patient failed recanalization by cardiac cath and his been evaluated for possible bypass surgery and aortic valve repair/replacement. cardiothoracic surgery has been consulted Labs and medication were reviewed.. Continue same treatment. Continue with symptomatic treatment. Resume home medication. Monitor lytes and vitals. DVT and GI prophylaxis. Further recommendations of the clinical course of the patient DVT prophylaxis: heparin GI Prophylaxis: Pepcid Prognosis is guarded
--- NOTE | 2020-02-27 08:12 | P.PN ---
Subjective Progress Note Date: 02/27/20 Principal diagnosis: Severe triple-vessel coronary artery disease, cute non-ST elevation myocardial infarction, acute systolic heart failure, severe mitral valve regurgitation, sev ere tricuspid valve regurgitation with severe pulmonary hypertension, bilateral pleural effusions, nonspecific mediastinal lymph nodes of 1.[address] angio of her chest. Previous medical history of psoriatic arthritis, sarcoidosis, ankylosis spondylosis, left vocal cord paralysis, asthma. Severe pulmonary disease with preoperative FEV1 31% of predicted, more likely results of acute heart failure status. The patient seen and examined at the bedside on 02/27/2020. She denies any chest pain, states shortness of breath is better. She is in good spirits. She has been diuresing with IV Lasix and currently has a negative fluid balance. She was seen yesterday by Dr. Beck who had a lengthy discussion with her about her extreme high risk for surgery. We did discuss risks and benefits. The patient is not quite ready for surgery yet, she still needs a bit of tuning up with optimal medical therapy including diuresis. We did discuss this as well with the patient and she is in agreement. All questions were answered. Awaiting determination for timing of surgery Objective - Vital Signs Vital signs: Vital Signs Temp 98 F 02/27/20 04:00 Pulse 57 L 02/27/20 07:00 Resp 17 02/27/20 07:00 BP 93/60 02/27/20 07:00 Pulse Ox 94 L 02/27/20 07:00 Intake & Output 02/26/20 02/27/20 02/27/20 18:59 06:59 18:59 Intake Total 420 397.621 20 Output Total 965 1130 33 Balance -545 -732.379 -13 Weight 68.084 kg Intake: IV 220 230 20 0.9 @ 20 120 230 20 Potassium Chloride 10 meq 100 In Water For Injection 1 100ml.bag @ 100 mls/hr IVPB Q1H [facility] Rx#: [id number] Intake, IV Titration 100 167.621 Amount Heparin Sod,Pork in 0.45% 167.621 NaCl 25,000 unit In 0.45 % NaCl 1 250ml.bag @ 12 UNITS/KG/HR 6.858 mls/hr IV .Q24H [facility] Rx#: [id number] Potassium Chloride 10 meq 100 In Water For Injection 1 100ml.bag @ 100 mls/hr IVPB Q1H [facility] Rx#: [id number] Oral 100 Output: Urine 965 1130 33 Other: Voiding Method Indwelling Catheter Indwelling Catheter # Bowel Movements 1 - Constitutional General appearance: Present: cooperative, no acute distress - Respiratory Details: Lungs sounds diminished bilaterally. Respirations even, nonlabored. Currently on 2 L nasal cannula with oxygen saturation 94%. Able to achieve 500-750 mL on her incentive spirometry. Weak cough. - Cardiovascular Details: S1, S2 present. Regular rate and rhythm, sinus rhythm on telemetry. Palpable peripheral pulses bilaterally. No edema present. No calf pain or tenderness noted. - Gastrointestinal Gastrointestinal Comment(s): Abdomen soft, nontender, nondistended. Active bowel sounds present 4 quadrants. - Genitourinary Genitourinary Comment(s): Cheung present draining clear, yellow urine. Output overnight 35-80 mL/h - Integumentary Integumentary Comment(s): Skin is warm and dry with evidence of good perfusion - Neurologic Neurologic: Present: CNII-XII intact - Musculoskeletal Musculoskeletal: Present: strength equal bilaterally - Psychiatric Psychiatric: Present: A&O x's 3, appropriate affect, intact judgment & insight - Allied health notes Allied health notes reviewed: nursing - Labs CBC & Chem 7: 02/27/20 04:35 02/27/20 04:35 Labs: Abnormal Lab Results - Last 24 Hours (Table) 02/27/20 02/27/20 02/27/20 Range/Units 04:35 04:35 04:35 RBC 3.60 L (3.80-5.40) m/uL MCV 104.3 H (80.0-100.0) fL Lymphocytes # 0.9 L (1.0-4.8) k/uL APTT 39.9 H (22.0-30.0) sec Sodium 136 L (137-145) mmol/L BUN 19 H (7-17) mg/dL Assessment and Plan Assessment: 1. Severe triple-vessel coronary artery disease 2. Acute non-ST elevation myocardial infarction, peak troponin level 1.810 3. Acute systolic heart failure with an overall left ventricular systolic fun ction to be severely impaired with an ejection fraction 20-30% and an admission BNP of 12,000 4. Severe mitral valve regurgitation 5. Severe tricuspid valve regurgitation with severe pulmonary hypertension 6. Bilateral pleural effusions 7. Nonspecific mediastinal lymph nodes of 1.[address] angio of her chest 8. History of psoriatic arthritis 9. History of sarcoidosis 10. History of ankylosis spondylosis 11. History of left vocal cord paralysis 12. History of asthma 13. Multiple drug ALLERGIES 14. Severe pulmonary disease with preoperative FEV1 31% of predicted Plan: 1. Continue to optimize medically with aspirin, statin, beta edgar, IV heparin, Lasix and Aldactone 2. Wean O2 as tolerated. Encourage incentive spirometry use. Likely will repeat bedside spirometry once patient has been maximized on medical therapy 3. Increase activity as tolerated 4. STS risk score calculated, patient is extremely high risk for surgery, discussed with the patient 5. ENT has been consulted for evaluation of left vocal cord paralysis 6. Continue preoperative teaching 7. Medical management of her comorbidities per primary care service, cardiology, pulmonology 8. More recommendations to follow regarding timing of surgery 9. Patient may be transferred out of ICU from cardiothoracic standpoint if okay with other services Time with Patient: Greater than 30
[2020-02-27] MEDS: SPIRONOLACTONE 25 MG TAB PO SCH (09:17)
[2020-02-27] MEDS: ATORVASTATIN 80 MG TAB PO SCH (09:17)
[2020-02-27] MEDS: METOPROLOL TARTRATE 12.5 MG TAB PO SCH ×2 (09:17→19:55)
[2020-02-27] MEDS: ASPIRIN 81 MG PO SCH (09:18)
[2020-02-27] MEDS: FAMOTIDINE 20 MG/2 ML VIAL IV SCH ×2 (09:18→19:55)
[2020-02-27] MEDS: FUROSEMIDE 10 MG/ML 2 ML VIAL IV SCH ×2 (09:18→19:55)
[2020-02-27] MEDS: DIGOXIN 250 MCG TAB PO SCH (09:18)
[2020-02-27] MEDS: MUPIROCIN 2% OINT 22 GM TUBE NASAL SCH ×2 (09:20→19:55)
[2020-02-27] MEDS: SODIUM CHLORIDE 0.9% 1,000 ML IV SCH (09:28)
--- NOTE | 2020-02-27 11:19 | XR ---
EXAMINATION TYPE: XR chest 1V portable DATE OF EXAM: 02/27/2020 COMPARISON: 02/25/2020 INDICATION: Effusion TECHNIQUE: Single frontal view of the chest is obtained. FINDINGS: The heart size is normal. The pulmonary vasculature is somewhat prominent. There is a small bilateral pleural effusion, increasing on the right. Mild infiltrate is at the right base. Infiltrate has improved over the interval. IMPRESSION: 1. Small bilateral pleural effusions. Right effusion increased over the interval. 2. Improving right lower lobe infiltrate.
--- NOTE | 2020-02-27 13:26 | PN ---
PROGRESS NOTE Shreyl is a 69-year-old lady who is admitted to hospital with congestive heart failure. She is found to have severe three-vessel coronary artery disease with moderate to severe mitral and severe tricuspid regurgitation with severe pulmonary hypertension. Ejection fraction is 30%. [place] appears hypokinetic. This morning, patient appears comfortable at rest. Denies chest pain. Her shortness of breath has improved. Her O2 saturation is 94% on 2 L. Heart rate is 57 beats per minute. Blood pressure is 93/62. Respiratory rate 18. Chest exam reveals good air entry bilaterally. Heart exam reveals first and second heart sounds and a grade 3 x 6 systolic murmur at the apex. Abdomen is soft. Exam of extremities did not reveal any edema. Peripheral pulses are felt. Patient is currently on aspirin, Lipitor, Lasix, Lopressor, Aldactone. Blood pressures are somewhat marginal. ASSESSMENT: 1. Ischemic cardiomyopathy with severe LV dysfunction. 2. Moderate to severe mitral regurgitation. 3. Severe tricuspid regurgitation. 4. Three-vessel coronary artery disease. PLAN: The patient needs surgical revascularization with mitral and tricuspid valve repair. She is a high-risk candidate for surgery. We do not have much scope for any further optimization of medical therapy. Blood pressures are marginal. We are giving her the medications that she is currently able to tolerate. The patient does not have any history of COPD. The patient's respiratory failure is related to the cardiomyopathy and the patient has a questionable history of stridor that needs to be evaluated by ENT. Hopefully, patient will go to surgery next week. We are waiting for an opinion from surgeon. I spoke to Dr. Beck today. He is going to reassess the timing of surgery this weekend. If the patient is considered too high risk for surgery, we will consider transferring her to a tertiary care center. I do not believe this is someone we can keep optimizing with medical therapy for the next several weeks. MMODL / IJN: [id number] /
--- NOTE | 2020-02-27 13:41 | P.PN ---
Subjective Progress Note Date: 02/27/20 On today's evaluation of 02/27/2020, the patient is resting comfortably in bed. She is still being optimized in regards to her CHF. She is still being worked up for cardiac surgery. The patient has no specific complaints. She remains on IV Lasix. No nausea. No vomiting. No diarrhea. No chest pain. No palpitation. No cardiac arrhythmias. She is receiving Lasix 20 mg IV push every 12 hours. Is overall feeling better. The renal function is still stable. No significant electrode abnormalities. ENT has been consulted regarding the vocal cords history and based on Dr. Conway is unable to do a bedside laryngoscopy on this patient. I'm considering doing a quick bronchoscopy evaluate upper airway to make sure there is adequate airway patency prior to this patient being considered for cardiac surgery. Note that the patient has had a YNES was done today that showed moderate to severe mitral regurgitation, severe tricuspid regurgitation, severe pulmonary hypertension, severe LV dys function with hypokinesis of the apical segments with an ejection fraction of 30%. There is also biatrial enlargement, biventricular dilatation without any clots and a atrial appendage. The patient is still being considered for coronary bypass surgery, mitral valve repair. Cardiac surgeries on the case Objective - Vital Signs Vital signs: Vital Signs Temp 98.2 F 02/27/20 12:00 Pulse 55 L 02/27/20 12:00 Resp 21 02/27/20 12:00 BP 115/74 02/27/20 12:00 Pulse Ox 97 02/27/20 12:00 Intake & Output 02/26/20 02/27/20 02/27/20 18:59 06:59 18:59 Intake Total 420 397.621 820 Output Total 965 1130 443 Balance -545 -732.379 377 Weight 68.084 kg Intake: IV 220 230 140 0.9 @ 20 120 230 140 Potassium Chloride 10 meq 100 In Water For Injection 1 100ml.bag @ 100 mls/hr IVPB Q1H [facility] Rx#: [id number] Intake, IV Titration 100 167.621 Amount Heparin Sod,Pork in 0.45% 167.621 NaCl 25,000 unit In 0.45 % NaCl 1 250ml.bag @ 12 UNITS/KG/HR 6.858 mls/hr IV .Q24H [facility] Rx#: [id number] Potassium Chloride 10 meq 100 In Water For Injection 1 100ml.bag @ 100 mls/hr IVPB Q1H [facility] Rx#: [id number] Oral 100 680 Output: Urine 965 1130 443 Other: Voiding Method Indwelling Catheter Indwelling Catheter Indwelling Catheter # Bowel Movements 1 - Exam The patient appeared well nourished and normally developed. Vital signs as documented. Head exam is unremarkable. No scleral icterus or corneal arcus noted. Neck is without jugular venous distension, thyromegaly, or carotid bruits. Carotid upstrokes are brisk bilaterally. Lungs are diminished breath sounds bilaterally especially lung bases along with some crackers the lung bases bilaterally.. Cardiac exam reveals the PMI to be normally sized and situated. Rhythm is regular. First and second heart sounds normal. No murmurs, rubs or gallops. Abdominal exam reveals normal bowel sounds, no masses, no organomegaly and no aortic enlargement. Extremities are nonedematous and both femoral and pedal pulses are normal.Examination of the skin revealed no evidence of significant rashes, suspicious appearing nevi or other concerning lesions. Neurologically the patient is awake and alert and there is no focal neurological deficit. - Labs CBC & Chem 7: 02/27/20 04:35 02/27/20 04:35 Labs: Abnormal Lab Results - Last 24 Hours (Table) 02/27/20 02/27/20 02/27/20 Range/Units 04:35 04:35 04:35 RBC 3.60 L (3.80-5.40) m/uL MCV 104.3 H (80.0-100.0) fL Lymphocytes # 0.9 L (1.0-4.8) k/uL APTT 39.9 H (22.0-30.0) sec Sodium 136 L (137-145) mmol/L BUN 19 H (7-17) mg/dL 02/27/20 Range/Units 10:52 RBC (3.80-5.40) m/uL MCV (80.0-100.0) fL Lymphocytes # (1.0-4.8) k/uL APTT 51.7 H (22.0-30.0) sec Sodium (137-145) mmol/L BUN (7-17) mg/dL Microbiology - Last 24 Hours (Table) 02/25/20 14:50 Nasal Screen MRSA/MSSA - Final Nasal Swab Assessment and Plan Plan: 1 acute non-ST segment elevation myocardial infarction, troponin peaked at 1.8, currently free of any chest pain and the patient continues to be on IV heparin. 2 triple-vessel coronary artery disease with complete occlusion of the mid LAD based on cardiac catheterization. Failed angioplasty and stenting 3 acute systolic heart failure which is of a new onset and there is a significant drop in the patient's LV ejection fraction which is down to 25-30%. The YNES also confirmed presence of significant valvular heart disease with moderate to severe mitral regurgitation, severe tricuspid regurgitation, severe pulmonary hypertension, biatrial enlargement, biventricular dilatation and there was no evidence of any clotting in the left atrial appendage. 4 acute hypoxic respiratory failure secondary to above, improving 5 bilateral pleural effusion most likely secondary to CHF as the patient also has some interstitial edema, and the chest x-rays showing small bilateral pleural effusion and improving and the right lower lobe pulmonary infiltrates. 6 nonspecific mediastinal lymph nodes, unchanged compared to CAT scan of the chest from 2012 7 sarcoidosis currently inactive in stable 8 history of ankylosing spondylitis 9 history of psoriatic arthritis 10 questionable history of left vocal cord paralysis, no stridor at this point in time 11 mild intermittent bronchial asthma 12 multiple drug ALLERGIES Plan Keep the patient intensive care unit. The patient related by cardiology. Possible transfer to telemetry unit. Continue diuretics Optimize CHF Patient is on beta blockers Patient on digoxin Patient IV heparin We'll do a quick bedside bronchoscopy tomorrow a.m. to evaluate the vocal cords and the upper airway patency pending cardiac surgery Continue using incentive spirometer. We'll continue to follow
[2020-02-27] MEDS: HEPARIN SOD,PORK IN 0.45% NACL 25,000 UNIT in 0.45% NACL 1 250ML.BAG IV SCH (19:55)
[2020-02-28 05:24] LABS: Basophils % (A) 1 %; Eosinophils # (A) 0.3 k/uL (0-0.7); Eosinophils % (A) 4 %; HCT 37.9 % (34.0-46.0); HGB 12.4 gm/dL (11.4-16.0); Hypochromasia Slight; Lymphocytes # (A) 1.1 k/uL (1.0-4.8); Lymphocytes % (A) 16 %; MCH 34.1 pg (25.0-35.0); MCHC 32.6 g/dL (31.0-37.0); MCV 104.5 fL (80.0-100.0); Macrocytosis Slight; Mean Platelet Volume 7.7; Monocytes # (A) 0.5 k/uL (0-1.0); Monocytes % (A) 8 %; Neutrophils # (A) 4.5 k/uL (1.3-7.7); Neutrophils % (A) 70 %; Platelet Count 211 k/uL (150-450); RBC 3.63 m/uL (3.80-5.40); RDW 13.8 % (11.5-15.5); WBC 6.4 k/uL (3.8-10.6)
[2020-02-28 05:41] LABS: African American GFR (CKD) >90 (>60 ml/min/1.73 sqM); Anion Gap 3 mmol/L; Blood Urea Nitrogen 12 mg/dL (7-17); Calcium 8.7 mg/dL (8.4-10.2); Carbon Dioxide 31 mmol/L (22-30); Chloride 101 mmol/L (98-107); Glucose 90 mg/dL (74-99); Non-African American GFR(CKD) 81 (>60 ml/min/1.73 sqM); Potassium 3.7 mmol/L (3.5-5.1); Sodium 135 mmol/L (137-145)
[2020-02-28] MEDS ORDERED: POTASSIUM CHLORIDE ER 20 MEQ TAB.ER PO SCH (06:00)
[2020-02-28] MEDS ORDERED: GLYCOPYRROLATE 0.2 MG/ML 2 ML VIAL ONE (09:01)
[2020-02-28] MEDS ORDERED: LIDOCAINE 1% INJ 10MG/ML (20 ML MDV) ONE (09:01)
[2020-02-28] MEDS ORDERED: PROPOFOL 10 MG/ML 20 ML VIAL IV ONE (09:01)
[2020-02-28] MEDS ORDERED: MIDAZOLAM 2 MG/2 ML VIAL ONE (09:01)
[2020-02-28] MEDS ORDERED: IV FLUID CONTINUATION 1,000 ML IV ONE (09:28)
[2020-02-28] MEDS: ASPIRIN 81 MG PO SCH (09:36)
[2020-02-28] MEDS: METOPROLOL TARTRATE 12.5 MG TAB PO SCH ×2 (09:36→20:29)
[2020-02-28] MEDS: FAMOTIDINE 20 MG/2 ML VIAL IV SCH ×2 (09:36→20:31)
[2020-02-28] MEDS: LISINOPRIL 2.5 MG TAB PO SCH (09:37)
[2020-02-28] MEDS: MUPIROCIN 2% OINT 22 GM TUBE NASAL SCH ×2 (09:37→20:31)
[2020-02-28] MEDS: SPIRONOLACTONE 25 MG TAB PO SCH (09:37)
[2020-02-28] MEDS: FUROSEMIDE 20 MG TAB PO SCH ×2 (09:37→15:45)
[2020-02-28] MEDS: DIGOXIN 250 MCG TAB PO SCH (09:37)
[2020-02-28] MEDS: ATORVASTATIN 80 MG TAB PO SCH (09:37)
[2020-02-28] MEDS: HEPARIN SOD,PORK IN 0.45% NACL 25,000 UNIT in 0.45% NACL 1 250ML.BAG IV SCH (09:39)
[2020-02-28] MEDS: SODIUM CHLORIDE 0.9% 1,000 ML IV SCH (09:39)
--- NOTE | 2020-02-28 10:38 | PN ---
PROGRESS NOTE Sheryl is a 69-year-old lady who is admitted to hospital with congestive heart failure and was found to have severe triple-vessel disease and severe mitral regurgitation. She is awaiting bypass surgery. The patient has a questionable vocal cord paralysis and will undergo a bronchoscopy today. She is doing well. Her O2 sats were good on room air. She is not short of breath. Denies chest pain, stable hemodynamically. She is optimized medically for whenever the surgery is done. The patient is currently on aspirin, Lanoxin, Lasix, which I am going to switch to p.o. at this time, Lopressor and I will add lisinopril 2.5 mg daily and increase the dose as tolerated. On exam, comfortable at rest. Vital signs are stable. Blood pressure is 113/50. Respirations 18. Chest exam reveals good air entry bilaterally. I do not hear any crackles or rhonchi. Heart exam reveals first and second heart sounds. No gallop. Exam of extremities did not reveal any edema. Peripheral pulses are felt. Labs show that the hemoglobin is 12.4, platelet count is 211. Potassium is 3.7 creatinine is 0.75. ASSESSMENT: Ischemic cardiomyopathy with congestive heart failure, moderate to severe mitral regurgitation, severe triple-vessel disease, severe tricuspid regurgitation. The patient will continue with the current optimal medical therapy and will undergo bypass surgery with mitral and tricuspid valve repair. MMODL / IJN: [id number] /
--- NOTE | 2020-02-28 11:39 | P.PN ---
Subjective Progress Note Date: 02/28/20 Principal diagnosis: Severe triple-vessel coronary artery disease, cute non-ST elevation myocardial infarction, acute systolic heart failure, severe mitral valve regurgitation, sev ere tricuspid valve regurgitation with severe pulmonary hypertension, bilateral pleural effusions, nonspecific mediastinal lymph nodes of 1.[address] angio of her chest. Previous medical history of psoriatic arthritis, sarcoidosis, ankylosis spondylosis, left vocal cord paralysis, asthma. Severe pulmonary disease with preoperative FEV1 31% of predicted, more likely results of acute heart failure status. The patient seen and examined at the bedside on 02/28/2020. She denies any chest pain, states shortness of breath is better. She is in good spirits. She has been diuresing with IV Lasix and currently has a negative fluid balance, continues to be medically optimized. Ambulated in hallway yesterday, tolerated well. Chest x-ray completed yesterday, shows improvement. Today her vocal chords will be examined due to history of vocal chord paralysis. Objective - Vital Signs Vital signs: Vital Signs Temp 98 F 02/28/20 04:00 Pulse 56 L 02/28/20 07:00 Resp 16 02/28/20 07:00 BP 99/56 02/28/20 07:00 Pulse Ox 96 02/28/20 07:00 Intake & Output 02/27/20 02/28/20 02/28/20 18:59 06:59 18:59 Intake Total 920 369.083 20 Output Total 733 620 35 Balance 187 -250.917 -15 Weight 63.5 kg Intake: IV 240 240 20 0.9 @ 20 240 240 20 Intake, IV Titration 129.083 Amount Heparin Sod,Pork in 0.45% 129.083 NaCl 25,000 unit In 0.45 % NaCl 1 250ml.bag @ 12 UNITS/KG/HR 6.858 mls/hr IV .Q24H [facility] Rx#: [id number] Oral 680 Output: Urine 733 620 35 Other: Voiding Method Indwelling Catheter Indwelling Catheter # Bowel Movements 2 - Constitutional General appearance: Present: cooperative, no acute distress - Respiratory Details: Lungs sounds diminished bilaterally. Respirations even, nonlabored. Currently on 2 L nasal cannula with oxygen saturation 96%. Able to achieve 500 mL on her incentive spirometry. Weak cough. - Cardiovascular Details: S1, S2 present. Regular rate and rhythm, sinus rhythm on telemetry. Palpable peripheral pulses bilaterally. No edema present. No calf pain or tenderness noted. - Gastrointestinal Gastrointestinal Comment(s): Abdomen soft, nontender, nondistended. Active bowel sounds present 4 quadrants. Positive bowel movement - Genitourinary Genitourinary Comment(s): Cheung present draining clear, yellow urine. Output overnight 30-40 mL/h - Integumentary Integumentary Comment(s): Skin is warm and dry with evidence of good perfusion - Neurologic Neurologic: Present: CNII-XII intact - Musculoskeletal Musculoskeletal: Present: gait normal, strength equal bilaterally - Psychiatric Psychiatric: Present: A&O x's 3, appropriate affect, intact judgment & insight - Allied health notes Allied health notes reviewed: nursing - Labs CBC & Chem 7: 02/28/20 04:56 02/28/20 04:56 Labs: Abnormal Lab Results - Last 24 Hours (Table) 02/27/20 02/28/20 02/28/20 Range/Units 10:52 04:56 04:56 RBC 3.63 L (3.80-5.40) m/uL MCV 104.5 H (80.0-100.0) fL APTT 51.7 H (22.0-30.0) sec Sodium 135 L (137-145) mmol/L Carbon Dioxide 31 H (22-30) mmol/L 02/28/20 Range/Units 06:14 RBC (3.80-5.40) m/uL MCV (80.0-100.0) fL APTT 51.3 H (22.0-30.0) sec Sodium (137-145) mmol/L Carbon Dioxide (22-30) mmol/L Microbiology - Last 24 Hours (Table) 02/25/20 14:50 Nasal Screen MRSA/MSSA - Final Nasal Swab - Imaging and Cardiology Chest x-ray: report reviewed, image reviewed Assessment and Plan Assessment: 1. Severe triple-vessel coronary artery disease 2. Acute non-ST elevation myocardial infarction 3. Acute systolic heart failure, ischemic cardiomyopathy, severe LV dysfunction, ejection fraction 20-30% 4. Severe mitral valve regurgitation 5. Severe tricuspid valve regurgitation with severe pulmonary hypertension 6. Bilateral pleural effusions 7. Nonspecific mediastinal lymph nodes of 1.[address] angio of her chest 8. History of psoriatic arthritis 9. History of sarcoidosis 10. History of ankylosis spondylosis 11. History of left vocal cord paralysis 12. History of asthma 13. Multiple drug ALLERGIES 14. Severe pulmonary disease with preoperative FEV1 31% of predicted Plan: 1. Continue to optimize medically with aspirin, statin, beta edgar, IV heparin, Lasix and Aldactone 2. Wean O2 as tolerated. Encourage incentive spirometry use. 3. Increase activity as tolerated 4. STS risk score calculated, patient is extremely high risk for surgery, discussed with the patient 5. Will view vocal chords today due to history of vocal chord paralysis 6. Continue preoperative teaching 7. Medical management of her comorbidities per primary care service, cardiology, pulmonology 8. More recommendations to follow regarding timing of surgery 9. Patient may be transferred out of ICU from cardiothoracic standpoint if okay with other services Time with Patient: Greater than 30
--- NOTE | 2020-02-28 12:54 | P.PN ---
Subjective Progress Note Date: 02/28/20 On today's evaluation of 02/28/2020, I'm seeing the patient for a follow-up. The patient is currently, comfortable on 2 L of oxygen by nasal cannula. She remains on IV heparin. She continues to have crackles in lung bases bilaterally. She is still diuresing well with IV Lasix. Her serum bicarbs up to 31. Rest of the electrolytes are all within normal limits. There is a transient drop in the potassium level and this morning is down to 3.7. She is free of any chest pain. No cardiac arrhythmias have been noted. White cell count is at 6.4 with a hemoglobin of 4.4. The patient is still being investigated for coronary artery bypass and aortic valve replacement surgery. I performed a bedside upper airway inspection/bronchoscopy. I did not visualize any evidence of vocal cord paralysis in this patient. The posterior pharyngeal and laryngeal structures were all within normal limits. The vocal cords were fully functional and there was normal abduction and abduction. Subglottic tra maria ines was also patent. As such, the patient does not have any evidence of vocal cord paralysis.Note that the patient has had a YNES was done today that showed moderate to severe mitral regurgitation, severe tricuspid regurgitation, severe pulmonary hypertension, severe LV dysfunction with hypokinesis of the apical segments with an ejection fraction of 30%. There is also biatrial enlargement, biventricular dilatation without any clots and a atrial appendage. The patient is still being considered for coronary bypass surgery, mitral valve repair. Cardiac surgeries on the case Objective - Vital Signs Vital signs: Vital Signs Temp 98.2 F 02/28/20 08:00 Pulse 69 02/28/20 11:00 Resp 9 L 02/28/20 11:00 BP 103/78 02/28/20 11:00 Pulse Ox 95 02/28/20 11:00 Intake & Output 02/27/20 02/28/20 02/28/20 18:59 06:59 18:59 Intake Total 920 369.083 285.578 Output Total 733 620 105 Balance 187 -250.917 180.578 Weight 63.5 kg Intake: IV 240 240 160 0.9 @ 20 240 240 60 Intake, IV Titration 129.083 125.578 Amount Heparin Sod,Pork in 0.45% 129.083 125.578 NaCl 25,000 unit In 0.45 % NaCl 1 250ml.bag @ 12 UNITS/KG/HR 6.858 mls/hr IV .Q24H [facility] Rx#: [id number] Oral 680 Output: Urine 733 620 105 Other: Voiding Method Indwelling Catheter Indwelling Catheter Indwelling Catheter # Bowel Movements 2 - Exam The patient appeared well nourished and normally developed. Vital signs as documented. Head exam is unremarkable. No scleral icterus or corneal arcus noted. Neck is without jugular venous distension, thyromegaly, or carotid bruits. Carotid upstrokes are brisk bilaterally. Lungs are diminished breath sounds bilaterally especially lung bases along with some crackers the lung bases bilaterally.. Cardiac exam reveals the PMI to be normally sized and situated. Rhythm is regular. First and second heart sounds normal. No murmurs, rubs or gallops. Abdominal exam reveals normal bowel sounds, no masses, no organomegaly and no aortic enlargement. Extremities are nonedematous and both femoral and pedal pulses are normal.Examination of the skin revealed no evidence of significant rashes, suspicious appearing nevi or other concerning lesions. Neurologically the patient is awake and alert and there is no focal neurological deficit. - Labs CBC & Chem 7: 02/28/20 04:56 02/28/20 04:56 Labs: Abnormal Lab Results - Last 24 Hours (Table) 02/28/20 02/28/20 02/28/20 Range/Units 04:56 04:56 06:14 RBC 3.63 L (3.80-5.40) m/uL MCV 104.5 H (80.0-100.0) fL APTT 51.3 H (22.0-30.0) sec Sodium 135 L (137-145) mmol/L Carbon Dioxide 31 H (22-30) mmol/L Microbiology - Last 24 Hours (Table) 02/25/20 14:50 Nasal Screen MRSA/MSSA - Final Nasal Swab Assessment and Plan Plan: 1 acute non-ST segment elevation myocardial infarction, troponin peaked at 1.8, currently free of any chest pain and the patient continues to be on IV heparin. The patient is fairly of any chest pain for now. The patient is awaiting cardiac surgery which would be a combination of bypass and valve replacement. 2 triple-vessel coronary artery disease with complete occlusion of the mid LAD based on cardiac catheterization. Failed angioplasty and stenting 3 acute systolic heart failure which is of a new onset and there is a significant drop in the patient's LV ejection fraction which is down to 25-30%. The YNES also confirmed presence of significant valvular heart disease with moderate to severe mitral regurgitation, severe tricuspid regurgitation, severe pulmonary hypertension, biatrial enlargement, biventricular dilatation and there was no evidence of any clotting in the left atrial appendage. 4 acute hypoxic respiratory failure secondary to above, improving 5 bilateral pleural effusion most likely secondary to CHF as the patient also has some interstitial edema, and the chest x-rays showing small bilateral pleural effusion and improving and the right lower lobe pulmonary infiltrates. 6 nonspecific mediastinal lymph nodes, unchanged compared to CAT scan of the chest from 2012 7 sarcoidosis currently inactive in stable 8 history of ankylosing spondylitis 9 history of psoriatic arthritis 10 questionable history of left vocal cord paralysis, no stridor at this point in time and furthermore a bronchoscopy was done for upper airway inspection and the upper airway examination was essentially within normal limits and I was not able to identify any abnormalities in the vocal cord function. 11 mild intermittent bronchial asthma 12 multiple drug ALLERGIES Plan Keep the patient intensive care unit. The patient related by cardiology. Possible transfer to telemetry unit. Continue diuretics, and the patient is currently on Lasix 20 mg by mouth twice a day. This was switched to oral Lasix by cardiology. Optimize CHF, currently the patient on diuretics, digoxin, beta blockers 12.5 mg of metoprolol twice a day and Aldactone. Patient IV heparin bronchoscopy today and there was no evidence of any airway compromise. No evidence of any vocal cord paralysis. No evidence of any subglottic stenosis. Continue using incentive spirometer. We'll continue to follow
--- NOTE | 2020-02-28 12:57 | P.PCN ---
Date of Procedure: 02/28/20 Preoperative Diagnosis: History of vocal cord paralysis Postoperative Diagnosis: Same Procedure(s) Performed: Flexible bronchoscopy Anesthesia: MAC Surgeon: Marylou Haley Estimated Blood Loss (ml): 0 Condition: critical Disposition: ICU Operative Findings: This procedure was done due to concern of vocal cord paralysis. The patient has vocal cord paralysis per history. She was being worked up for cardiac surgery and I thought it was appropriate to investigate this patient further. Consult with ENT. Unable to do a laryngoscopy. Opted for a bronchoscopy for airway inspection. The patient was given propofol by [employer] the bedside. After achieving adequate sedation, inserted to my flexible bronchoscope through the left nostril. I inspected the posterior pharynx and laryngeal area. Posterior face was within normal limits. Larynx including the laryngeal structures such as epiglottis, vocal ocular, arytenoids and the cords were all within normal limits. The cords had a normal abduction and adduction. I do not appreciate any vocal cord nodules or lesions or paralysis. The cords were within normal limits. A total of 201% lidocaine was applied to the vocal cords and following that the bronchoscope was advanced to the subglottic trachea and the subglottic trachea was also within normal limits. A quick the other trachea till its midportion was within normal limits. At that point, bronchoscope was removed and the procedure was terminated. This is a normal upper airway examination and there is no concern for upper airway compromise at this point in time. As such, I'm going to discuss this finding with the cardiac surgeons are planning to operate on this patient sometime next week.
--- NOTE | 2020-02-28 20:41 | P.PN ---
Subjective This is a pleasant 69 years old female with past medical history of asthma, back pain status post back fusion surgery, psoriasis, Pham's esophagus, degenerative disc disease, sarcoidosis, rheumatoid arthritis, paralyzed left vocal cord. She is a patient of Dr. Fall as her primary doctor. She presents because of dyspnea on and off of 2 days' duration thought this due to ALLERGIC reaction with normal respiratory solution she came to the hospital and found to have CHF. She denies chest pain, no coughing, no abdominal pain, no change in her bowel habits. No fever This morning patient is fully awake and alert, she is not in distress and she is able to smile. Blood pressure on the low side 91/63 this morning, she is saturating 93% on 4 L oxygen, heart rate is 87 and patient is afebrile. Chest x-ray: CHF. CT of the chest with IV contrast: Bilateral pleural effusion and a large anterior mediastinal lymph nodes 1.5 cm and interstitial edema, no pulmonary embolism. EKG showing slightly elevated ST in the anteroapical and miguel-septal leads . 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 No problem regarding her urine or bowel. No fever. Rest of vitals are stable blood pressure on the low normal systolic and this morning is 90/57, Patient remains on heparin drip and intravenous Lasix twice a day of, also she is on aspirin and metoprolol. Labs including CBC and BMP are stable. Occult blood in stool is negative and hemoglobin is stable Her last ejection fraction was about 25-30% and cardiology team are planning to do YNES today, she is undergoing workup for possible bypass surgery. Surgical team was consulted 02/27/2020 Patient is clinically is the same. No chest pain or dyspnea. Blood pressure 93/60, heart rate 57, patient is afebrile. However she still have active problems as shows in the YNES done yesterday which showed moderate to severe mitral regurgitation, severe tricuspid regurgitation, severe pulmonary hypertension, also LV ejection fraction as low as 30% with apical hypokinesia. Patient in the meantime remains on heparin drip and IV Lasix while still undergoing workup for possible bypass surgery. Surgery team already on the case 02/28/2020 Patient remains in the ICU with no chest pain or shortness of breath. Hemodynamically stable. Today she underwent bronchoscopy for evaluation of vocal cords which were un remarkable with no paralysis and no subglottic stenosis Her labs are stable She remains on heparin drip, oral Lasix 20 mg twice daily, digoxin, lisinopril 2.5 mg and metoprolol 12.5 mg and Aldactone Objective - Vital Signs Vital signs: Vital Signs Temp 98.6 F 02/28/20 16:00 Pulse 73 02/28/20 16:00 Resp 23 02/28/20 16:00 BP 85/49 02/28/20 16:00 Pulse Ox 94 L 02/28/20 16:00 Intake & Output 02/27/20 02/28/20 02/28/20 18:59 06:59 18:59 Intake Total 920 369.083 425.578 Output Total 733 620 470 Balance 187 -250.917 -44.422 Weight 63.5 kg Intake: IV 240 240 300 0.9 @ 20 240 240 200 Intake, IV Titration 129.083 125.578 Amount Heparin Sod,Pork in 0.45% 129.083 125.578 NaCl 25,000 unit In 0.45 % NaCl 1 250ml.bag @ 12 UNITS/KG/HR 6.858 mls/hr IV .Q24H [facility] Rx#: [id number] Oral 680 Output: Urine 733 620 470 Other: Voiding Method Indwelling Catheter Indwelling Catheter Indwelling Catheter # Bowel Movements 2 - Exam GENERAL: The patient is alert and oriented x3, not in any acute distress. Well developed, well nourished. HEENT: Pupils are round and equally reacting to light. EOMI. No scleral icterus. No conjunctival pallor. Normocephalic, atraumatic. No pharyngeal erythema. No thyromegaly. CARDIOVASCULAR: S1 and S2 present. No murmurs, rubs, or gallops. PULMONARY: Chest is clear to auscultation, no wheezing or crackles. -ABDOMEN: Soft, nontender, nondistended, normoactive bowel sounds. No palpable organomegaly. Cheung catheter in place with clear urine MUSCULOSKELETAL: No joint swelling or deformity. EXTREMITIES: No cyanosis, clubbing, or pedal edema. NEUROLOGICAL: Gross neurological examination did not reveal any focal deficits. SKIN: No rashes. no petechiae. - Labs CBC & Chem 7: 02/28/20 04:56 02/28/20 04:56 Labs: Abnormal Lab Results - Last 24 Hours (Table) 02/28/20 02/28/20 02/28/20 Range/Units 04:56 04:56 06:14 RBC 3.63 L (3.80-5.40) m/uL MCV 104.5 H (80.0-100.0) fL APTT 51.3 H (22.0-30.0) sec Sodium 135 L (137-145) mmol/L Carbon Dioxide 31 H (22-30) mmol/L Assessment and Plan Assessment: Non-STEMI secondary to Acute coronary artery syndrome with triple-vessel dise ase, totally occluded mid LAD, critical stenosis in the left circumflex and diagonal branch of the RCA Acute systolic CHF with bilateral pleural effusion Enlarged mediastinal lymph nodes 1.5 cm History of asthma, not an active issue Psoriasis and psoriatic arthritis Pham's esophagus chronic back pain status post back fusion surgery 3 Degenerative disc disease Sarcoidosis Rheumatoid arthritis Paralyzed left vocal cord Plan: This is a pleasant 69 years old female who presents with ACS and CHF. Continue with aspirin and heparin drip. Cardiology and pulmonary/critical care consult. Patient failed recanalization by cardiac cath and his been evaluated for possible bypass surgery and aortic valve repair/replacement. cardiothoracic surgery has been consulted Labs and medication were reviewed.. Continue same treatment. Continue with symptomatic treatment. Resume home medication. Monitor lytes and vitals. DVT and GI prophylaxis. Further recommendations of the clinical course of the patient DVT prophylaxis: heparin GI Prophylaxis: Pepcid Prognosis is guarded
[2020-02-28] MEDS: HYDROcodone/APAP 7.5-325MG 1 EACH TAB PO PRN (21:05)
[2020-02-28] MEDS ORDERED: ALPRAZolam 0.25 MG TAB PO STA (23:55)
[2020-02-29] MEDS ORDERED: ALPRAZolam 0.25 MG TAB PO STA (01:44)
[2020-02-29 05:34] LABS: Basophils % (A) 0 %; Eosinophils # (A) 0.3 k/uL (0-0.7); Eosinophils % (A) 5 %; HCT 37.4 % (34.0-46.0); HGB 11.8 gm/dL (11.4-16.0); Hypochromasia Slight; Lymphocytes # (A) 0.9 k/uL (1.0-4.8); Lymphocytes % (A) 13 %; MCH 32.9 pg (25.0-35.0); MCHC 31.7 g/dL (31.0-37.0); MCV 103.8 fL (80.0-100.0); Macrocytosis Slight; Mean Platelet Volume 7.7; Monocytes # (A) 0.5 k/uL (0-1.0); Monocytes % (A) 7 %; Neutrophils % (A) 73 %; Platelet Count 191 k/uL (150-450); RDW 13.7 % (11.5-15.5); WBC 6.9 k/uL (3.8-10.6)
[2020-02-29 05:47] LABS: Calcium 8.6 mg/dL (8.4-10.2); Potassium 3.7 mmol/L (3.5-5.1)
[2020-02-29] MEDS ORDERED: POTASSIUM CHLORIDE ER 20 MEQ TAB.ER PO SCH (06:00)
--- NOTE | 2020-02-29 08:05 | P.PN ---
Subjective Progress Note Date: 02/29/20 Principal diagnosis: Severe triple-vessel coronary artery disease, cute non-ST elevation myocardial infarction, acute systolic heart failure, severe mitral valve regurgitation, sev ere tricuspid valve regurgitation with severe pulmonary hypertension, bilateral pleural effusions, nonspecific mediastinal lymph nodes of 1.[address] angio of her chest. Previous medical history of psoriatic arthritis, sarcoidosis, ankylosis spondylosis, left vocal cord paralysis, asthma. Severe pulmonary disease with preoperative FEV1 31% of predicted, more likely results of acute heart failure status. The patient seen and examined at the bedside on 02/29/2020. She denies any chest pain, states shortness of breath is better. She has been diuresing with IV Lasix and continues to have a negative fluid balance, continues to be medically optimized, changed to oral lasix yesterday. ALEX-I added yesterday with patient's blood pressures 80s-low 90s/40-50s, mean pressures low 60s. Per nursing patient did feel lightheaded when getting out of bed. Vocal chords examined yesterday, no vocal chord paralysis. Anticipating CABG with valve surgery early this week, no new questions. Objective - Vital Signs Vital signs: Vital Signs Temp 97.6 F 02/29/20 04:00 Pulse 59 L 02/29/20 07:00 Resp 19 02/29/20 07:00 BP 96/51 02/29/20 07:00 Pulse Ox 96 02/29/20 07:00 Intake & Output 02/28/20 02/29/20 02/29/20 18:59 06:59 18:59 Intake Total 485.578 220 20 Output Total 760 595 30 Balance -274.422 -375 -10 Weight 63.3 kg Intake: IV 360 220 20 0.9 @ 20 260 220 20 Intake, IV Titration 125.578 Amount Heparin Sod,Pork in 0.45% 125.578 NaCl 25,000 unit In 0.45 % NaCl 1 250ml.bag @ 12 UNITS/KG/HR 6.858 mls/hr IV .Q24H [facility] Rx#: [id number] Output: Urine 760 595 30 Other: Voiding Method Indwelling Catheter Indwelling Catheter - Constitutional General appearance: Present: cooperative, no acute distress - Respiratory Details: Lungs sounds diminished bilaterally. Respirations even, nonlabored. Currently on 2 L nasal cannula with oxygen saturation 96%. Able to achieve 1000 mL on her incentive spirometry. - Cardiovascular Details: S1, S2 present. Regular rate and rhythm, sinus rhythm on telemetry. Palpable peripheral pulses bilaterally. No edema present. No calf pain or tenderness noted. - Gastrointestinal Gastrointestinal Comment(s): Abdomen soft, nontender, nondistended. Active bowel sounds present 4 quadrant s. Positive bowel movement - Genitourinary Genitourinary Comment(s): Cheung present draining clear, yellow urine. Output overnight 30-45 mL/h, 1355 mL in the last 24 hours. - Integumentary Integumentary Comment(s): Skin is warm and dry with evidence of good perfusion - Neurologic Neurologic: Present: CNII-XII intact - Musculoskeletal Musculoskeletal: Present: strength equal bilaterally - Psychiatric Psychiatric: Present: A&O x's 3, appropriate affect, intact judgment & insight - Allied health notes Allied health notes reviewed: nursing - Labs CBC & Chem 7: 02/29/20 05:07 02/29/20 05:07 Labs: Abnormal Lab Results - Last 24 Hours (Table) 02/29/20 02/29/20 02/29/20 Range/Units 05:07 05:07 05:07 RBC 3.60 L (3.80-5.40) m/uL MCV 103.8 H (80.0-100.0) fL Lymphocytes # 0.9 L (1.0-4.8) k/uL APTT 60.4 H (22.0-30.0) sec Sodium 133 L (137-145) mmol/L Carbon Dioxide 31 H (22-30) mmol/L Assessment and Plan Assessment: 1. Severe triple-vessel coronary artery disease 2. Acute non-ST elevation myocardial infarction 3. Acute systolic heart failure, ischemic cardiomyopathy, severe LV dysfunctio n, ejection fraction 20-30% 4. Severe mitral valve regurgitation 5. Severe tricuspid valve regurgitation with severe pulmonary hypertension 6. Bilateral pleural effusions 7. Nonspecific mediastinal lymph nodes of 1.[address] angio of her chest 8. History of psoriatic arthritis 9. History of sarcoidosis 10. History of ankylosis spondylosis 11. History of left vocal cord paralysis, none currently 12. History of asthma 13. Severe pulmonary disease with preoperative FEV1 31% of predicted Plan: 1. Continue to optimize medically with aspirin, statin, beta edgar, IV heparin, Lasix and Aldactone. ALEX-I will need to be discontinued prior to surgery to prevent intraoperative hypotension 2. Wean O2 as tolerated. Encourage incentive spirometry use. 3. Increase activity as tolerated 4. Continue preoperative teaching 5. Medical management of her comorbidities per primary care service, cardiology, pulmonology 6. More recommendations to follow regarding timing of surgery, plan is for this week 7. Patient may be transferred out of ICU from cardiothoracic standpoint if okay with other services Time with Patient: Greater than 30
[2020-02-29] MEDS: LISINOPRIL 2.5 MG TAB PO SCH (08:57)
[2020-02-29] MEDS: ATORVASTATIN 80 MG TAB PO SCH (08:59)
[2020-02-29] MEDS: METOPROLOL TARTRATE 12.5 MG TAB PO SCH ×2 (08:59→20:29)
[2020-02-29] MEDS: SPIRONOLACTONE 25 MG TAB PO SCH (09:00)
[2020-02-29] MEDS: FAMOTIDINE 20 MG/2 ML VIAL IV SCH (09:00)
[2020-02-29] MEDS: MUPIROCIN 2% OINT 22 GM TUBE NASAL SCH ×2 (09:00→20:34)
[2020-02-29] MEDS: FUROSEMIDE 20 MG TAB PO SCH ×2 (09:00→15:37)
[2020-02-29] MEDS: ASPIRIN 81 MG PO SCH (09:00)
[2020-02-29] MEDS: SODIUM CHLORIDE 0.9% 1,000 ML IV SCH (09:00)
[2020-02-29] MEDS: DIGOXIN 250 MCG TAB PO SCH (09:05)
[2020-02-29] MEDS: HEPARIN SOD,PORK IN 0.45% NACL 25,000 UNIT in 0.45% NACL 1 250ML.BAG IV SCH (09:17)
--- NOTE | 2020-02-29 10:00 | PN ---
PROGRESS NOTE 69-year-old lady that is admitted to hospital with congestive heart failure, severe mitral regurgitation and has multivessel coronary artery disease. The patient had a bronchoscopy yesterday and did not have any evidence of vocal cord paralysis. This morning she is doing well and is free of symptoms. Resting comfortably. Does not require any O2. She is on oral Lasix at the moment. On exam, heart rate is 59 beats per minute blood pressure is 96/50. Respiratory is 19. There is no jugular venous distention. Chest exam reveals good air entry. There are no crackles or rhonchi. Heart exam reveals first and second heart sounds. Systolic murmur at the apex. Abdomen is soft. Exam of extremities did not reveal any edema. Labs show a hemoglobin of 11.8, platelet count is 190, potassium is 3.7, creatinine is 0.8. ASSESSMENT: 1. Ischemic cardiomyopathy. 2. Severe mitral regurgitation. 3. Multivessel coronary artery disease. PLAN: Patient is currently on aspirin, Lipitor, Lanoxin, Lasix, Lopressor, Aldactone, and lisinopril. The patient will undergo surgical revascularization with mitral and tricuspid valve repair next week. I believe she is going to go next . MMODL / IJN: [id number] /
--- NOTE | 2020-02-29 10:27 | P.PN ---
Subjective Progress Note Date: 02/29/20 On 02/29/2020, the patient is resting comfortably in bed. No specific complaints. No major respiratory difficulties. No angina. Note that the patient in no cardiac arrhythmias. As mentioned earlier, I performed a bronchoscopy on yesterday and he evaluated the airway and there is no evidence of any subglottic stenosis or vocal cords paralysis. She is cleared from that standpoint. She is essentially awaiting her surgery which is tentatively sometime middle of next week. She has moderate to severe mitral regurgitation and severe the prevascular disease which is not abnormal to enteroplasty and stenting. She is being considered for coronary artery bypass surgery and mitral valve repair. She is on oral Lasix for now. He is on 2 L of oxygen by nasal cannula. Objective - Vital Signs Vital signs: Vital Signs Temp 97.7 F 02/29/20 08:00 Pulse 77 02/29/20 09:00 Resp 21 02/29/20 09:00 BP 99/68 02/29/20 09:00 Pulse Ox 96 02/29/20 09:00 Intake & Output 02/28/20 02/29/20 02/29/20 18:59 06:59 18:59 Intake Total 485.578 220 276.103 Output Total 760 595 130 Balance -274.422 -375 146.103 Weight 63.3 kg Intake: IV 360 220 60 0.9 @ 20 260 220 60 Intake, IV Titration 125.578 216.103 Amount Heparin Sod,Pork in 0.45% 125.578 216.103 NaCl 25,000 unit In 0.45 % NaCl 1 250ml.bag @ 12 UNITS/KG/HR 6.858 mls/hr IV .Q24H [facility] Rx#: [id number] Output: Urine 760 595 130 Other: Voiding Method Indwelling Catheter Indwelling Catheter Indwelling Catheter - Exam The patient appeared well nourished and normally developed. Vital signs as documented. Head exam is unremarkable. No scleral icterus or corneal arcus noted. Neck is without jugular venous distension, thyromegaly, or carotid bruits. Carotid upstrokes are brisk bilaterally. Lungs are diminished breath sounds bilaterally especially lung bases along with some crackers the lung bases bilaterally.. Cardiac exam reveals the PMI to be normally sized and situated. Rhythm is regular. First and second heart sounds normal. No murmurs, rubs or gallops. Abdominal exam reveals normal bowel sounds, no masses, no organomegaly and no aortic enlargement. Extremities are nonedematous and both femoral and pedal pulses are normal.Examination of the skin revealed no evidence of significant rashes, suspicious appearing nevi or other concerning lesions. Neurologically the patient is awake and alert and there is no focal neurological deficit. - Labs CBC & Chem 7: 02/29/20 05:07 02/29/20 05:07 Labs: Abnormal Lab Results - Last 24 Hours (Table) 02/29/20 02/29/20 02/29/20 Range/Units 05:07 05:07 05:07 RBC 3.60 L (3.80-5.40) m/uL MCV 103.8 H (80.0-100.0) fL Lymphocytes # 0.9 L (1.0-4.8) k/uL APTT 60.4 H (22.0-30.0) sec Sodium 133 L (137-145) mmol/L Carbon Dioxide 31 H (22-30) mmol/L Assessment and Plan Plan: 1 acute non-ST segment elevation myocardial infarction, troponin peaked at 1.8, currently free of any chest pain and the patient continues to be on IV heparin. The patient is fairly of any chest pain for now. The patient is awaiting cardi ac surgery which would be a combination of bypass and valve replacement. 2 triple-vessel coronary artery disease with complete occlusion of the mid LAD based on cardiac catheterization. Failed angioplasty and stenting 3 acute systolic heart failure which is of a new onset and there is a significa nt drop in the patient's LV ejection fraction which is down to 25-30%. The YNES also confirmed presence of significant valvular heart disease with moderate to severe mitral regurgitation, severe tricuspid regurgitation, severe pulmonary hypertension, biatrial enlargement, biventricular dilatation and there was no evidence of any clotting in the left atrial appendage. Overall, the patient's CHF is well optimized and the patient is currently on oral Lasix. 4 acute hypoxic respiratory failure secondary to above, improving, and the patient is on 2 L of oxygen by nasal cannula 5 bilateral pleural effusion most likely secondary to CHF as the patient also has some interstitial edema, and the chest x-rays showing small bilateral pleural effusion and improving and the right lower lobe pulmonary infiltrates., Improving 6 nonspecific mediastinal lymph nodes, unchanged compared to CAT scan of the chest from 2012 7 sarcoidosis currently inactive in stable 8 history of ankylosing spondylitis 9 history of psoriatic arthritis 10 questionable history of left vocal cord paralysis, no stridor at this point in time and furthermore a bronchoscopy was done for upper airway inspection and the upper airway examination was essentially within normal limits and I was not able to identify any abnormalities in the vocal cord function. 11 mild intermittent bronchial asthma 12 multiple drug ALLERGIES Plan Possible transfer to telemetry unit. Continue diuretics, and the patient is currently on Lasix 20 mg by mouth twice a day. Optimize CHF, currently the patient on diuretics, digoxin, beta blockers 12.5 mg of metoprolol twice a day and Aldactone. Patient IV heparin the bronchoscopy. Doppler airway Continue using incentive spirometer. We'll continue to follow
--- NOTE | 2020-02-29 13:26 | P.PN ---
Subjective This is a pleasant 69 years old female with past medical history of asthma, back pain status post back fusion surgery, psoriasis, Pham's esophagus, degenerative disc disease, sarcoidosis, rheumatoid arthritis, paralyzed left vocal cord. She is a patient of Dr. Fall as her primary doctor. She presents because of dyspnea on and off of 2 days' duration thought this due to ALLERGIC reaction with normal respiratory solution she came to the hospital and found to have CHF. She denies chest pain, no coughing, no abdominal pain, no change in her bowel habits. No fever This morning patient is fully awake and alert, she is not in distress and she is able to smile. Blood pressure on the low side 91/63 this morning, she is saturating 93% on 4 L oxygen, heart rate is 87 and patient is afebrile. Chest x-ray: CHF. CT of the chest with IV contrast: Bilateral pleural effusion and a large anterior mediastinal lymph nodes 1.5 cm and interstitial edema, no pulmonary embolism. EKG showing slightly elevated ST in the anteroapical and miguel-septal leads . 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 No problem regarding her urine or bowel. No fever. Rest of vitals are stable blood pressure on the low normal systolic and this morning is 90/57, Patient remains on heparin drip and intravenous Lasix twice a day of, also she is on aspirin and metoprolol. Labs including CBC and BMP are stable. Occult blood in stool is negative and hemoglobin is stable Her last ejection fraction was about 25-30% and cardiology team are planning to do YNES today, she is undergoing workup for possible bypass surgery. Surgical team was consulted 02/27/2020 Patient is clinically is the same. No chest pain or dyspnea. Blood pressure 93/60, heart rate 57, patient is afebrile. However she still have active problems as shows in the YNES done yesterday which showed moderate to severe mitral regurgitation, severe tricuspid regurgitation, severe pulmonary hypertension, also LV ejection fraction as low as 30% with apical hypokinesia. Patient in the meantime remains on heparin drip and IV Lasix while still undergoing workup for possible bypass surgery. Surgery team already on the case 02/28/2020 Patient remains in the ICU with no chest pain or shortness of breath. Hemodynamically stable. Today she underwent bronchoscopy for evaluation of vocal cords which were un remarkable with no paralysis and no subglottic stenosis Her labs are stable She remains on heparin drip, oral Lasix 20 mg twice daily, digoxin, lisinopril 2.5 mg and metoprolol 12.5 mg and Aldactone 02/29/2020 Patient is resting comfortably in the ICU, no chest pain or dyspnea. Chest bronchoscopy yesterday which shows normal vocal cords with no subglottic stenosis. Vitals are stable, slightly bradycardic Labs including CBC and BMP are unremarkable She remains on heparin drip and oral Lasix, also she is on metoprolol and digoxin and aspirin Planned for cardiac bypass surgery by this coming Objective - Vital Signs Vital signs: Vital Signs Temp 98.4 F 02/29/20 12:00 Pulse 54 L 02/29/20 12:00 Resp 16 02/29/20 12:00 BP 116/72 02/29/20 12:00 Pulse Ox 95 02/29/20 12:00 Intake & Output 02/28/20 02/29/20 02/29/20 18:59 06:59 18:59 Intake Total 485.578 220 336.103 Output Total 760 595 235 Balance -274.422 -375 101.103 Weight 63.3 kg Intake: IV 360 220 120 0.9 @ 20 260 220 120 Intake, IV Titration 125.578 216.103 Amount Heparin Sod,Pork in 0.45% 125.578 216.103 NaCl 25,000 unit In 0.45 % NaCl 1 250ml.bag @ 12 UNITS/KG/HR 6.858 mls/hr IV .Q24H [facility] Rx#: [id number] Output: Urine 760 595 235 Other: Voiding Method Indwelling Catheter Indwelling Catheter Indwelling Catheter - Exam GENERAL: The patient is alert and oriented x3, not in any acute distress. Well developed, well nourished. HEENT: Pupils are round and equally reacting to light. EOMI. No scleral icterus. No conjunctival pallor. Normocephalic, atraumatic. No pharyngeal erythema. No thyromegaly. CARDIOVASCULAR: S1 and S2 present. No murmurs, rubs, or gallops. PULMONARY: Chest is clear to auscultation, no wheezing or crackles. -ABDOMEN: Soft, nontender, nondistended, normoactive bowel sounds. No palpable organomegaly. Cheung catheter in place with clear urine MUSCULOSKELETAL: No joint swelling or deformity. EXTREMITIES: No cyanosis, clubbing, or pedal edema. NEUROLOGICAL: Gross neurological examination did not reveal any focal deficits. SKIN: No rashes. no petechiae. - Labs CBC & Chem 7: 02/29/20 05:07 02/29/20 05:07 Labs: Abnormal Lab Results - Last 24 Hours (Table) 02/29/20 02/29/20 02/29/20 Range/Units 05:07 05:07 05:07 RBC 3.60 L (3.80-5.40) m/uL MCV 103.8 H (80.0-100.0) fL Lymphocytes # 0.9 L (1.0-4.8) k/uL APTT 60.4 H (22.0-30.0) sec Sodium 133 L (137-145) mmol/L Carbon Dioxide 31 H (22-30) mmol/L Assessment and Plan Assessment: Non-STEMI secondary to Acute coronary artery syndrome with triple-vessel disease, totally occluded mid LAD, critical stenosis in the left circumflex and diagonal branch of the RCA Acute systolic CHF with bilateral pleural effusion Enlarged mediastinal lymph nodes 1.5 cm History of asthma, not an active issue Psoriasis and psoriatic arthritis Pham's esophagus chronic back pain status post back fusion surgery 3 Degenerative disc disease Sarcoidosis Rheumatoid arthritis Paralyzed left vocal cord Plan: This is a pleasant 69 years old female who presents with ACS and CHF. Continue with aspirin and heparin drip. Cardiology and pulmonary/critical care consult. Patient failed recanalization by cardiac cath and his been evaluated for possible bypass surgery and aortic valve repair/replacement. cardiothoracic surgery has been consulted Labs and medication were reviewed.. Continue same treatment. Continue with s ymptomatic treatment. Resume home medication. Monitor lytes and vitals. DVT and GI prophylaxis. Further recommendations of the clinical course of the patient DVT prophylaxis: heparin GI Prophylaxis: Pepcid Prognosis is guarded
[2020-02-29] MEDS: FAMOTIDINE 20 MG TAB PO SCH (20:33)
[2020-02-29] MEDS: MELATONIN 3 MG TABLET PO PRN (23:12)
[2020-02-29] MEDS: HYDROcodone/APAP 7.5-325MG 1 EACH TAB PO PRN (23:12)
[2020-03-01 00:58] LABS: Glucose,Whole Blood 117 mg/dL (75-99)
[2020-03-01 04:52] LABS: HCT 36.1 % (34.0-46.0); HGB 11.9 gm/dL (11.4-16.0); MCHC 32.9 g/dL (31.0-37.0); MCV 103.3 fL (80.0-100.0); Macrocytosis Slight; Mean Platelet Volume 7.9; Platelet Count 183 k/uL (150-450); RBC 3.49 m/uL (3.80-5.40); RDW 13.7 % (11.5-15.5); WBC 6.7 k/uL (3.8-10.6)
[2020-03-01 05:00] LABS: African American GFR (CKD) >90 (>60 ml/min/1.73 sqM); Anion Gap 4 mmol/L; Blood Urea Nitrogen 11 mg/dL (7-17); Calcium 8.7 mg/dL (8.4-10.2); Carbon Dioxide 29 mmol/L (22-30); Chloride 100 mmol/L (98-107); Glucose 91 mg/dL (74-99); Non-African American GFR(CKD) 83 (>60 ml/min/1.73 sqM); Potassium 3.9 mmol/L (3.5-5.1); Sodium 133 mmol/L (137-145)
[2020-03-01] MEDS: METOPROLOL TARTRATE 12.5 MG TAB PO SCH ×2 (08:41→21:33)
[2020-03-01] MEDS ORDERED: MD COMMUNICATION TO PHARMACY 1 EACH MISC PO ONE ×2 (09:28)
[2020-03-01] MEDS: FUROSEMIDE 20 MG TAB PO SCH ×2 (09:29→16:05)
[2020-03-01] MEDS: FAMOTIDINE 20 MG TAB PO SCH ×2 (09:29→21:36)
[2020-03-01] MEDS: MUPIROCIN 2% OINT 22 GM TUBE NASAL SCH ×2 (09:29→22:59)
[2020-03-01] MEDS: ASPIRIN 81 MG PO SCH (09:29)
[2020-03-01] MEDS: ATORVASTATIN 80 MG TAB PO SCH (09:29)
[2020-03-01] MEDS: LISINOPRIL 2.5 MG TAB PO SCH (09:29)
[2020-03-01] MEDS: SPIRONOLACTONE 25 MG TAB PO SCH (09:30)
--- NOTE | 2020-03-01 09:58 | P.PN ---
Subjective Progress Note Date: 03/01/20 Principal diagnosis: Severe triple-vessel coronary artery disease, cute non-ST elevation myocardial infarction, acute systolic heart failure, severe mitral valve regurgitation, sev ere tricuspid valve regurgitation with severe pulmonary hypertension, bilateral pleural effusions, nonspecific mediastinal lymph nodes of 1.[address] angio of her chest. Previous medical history of psoriatic arthritis, sarcoidosis, ankylosis spondylosis, left vocal cord paralysis, asthma. Severe pulmonary disease with preoperative FEV1 31% of predicted, more likely results of acute heart failure status. The patient was seen and examined at the bedside on 03/01/2020. She denies any chest pain, states shortness of breath is better. She has been diuresing with lasix aldactone, continues to have a negative fluid balance, continues to be medically optimized. Anticipating CABG with valve surgery , no new questions. Objective - Vital Signs Vital signs: Vital Signs Temp 98.3 F 03/01/20 08:00 Pulse 82 03/01/20 08:00 Resp 18 03/01/20 08:00 BP 99/54 03/01/20 08:00 Pulse Ox 99 03/01/20 08:00 Intake & Output 02/29/20 03/01/20 03/01/20 18:59 06:59 18:59 Intake Total 596.103 240 80 Output Total 685 800 85 Balance -88.897 -560 -5 Weight 63.5 kg Intake: IV 140 240 80 0.9 @ 20 140 240 80 Intake, IV Titration 216.103 Amount Heparin Sod,Pork in 0.45% 216.103 NaCl 25,000 unit In 0.45 % NaCl 1 250ml.bag @ 12 UNITS/KG/HR 6.858 mls/hr IV .Q24H [facility] Rx#: [id number] Oral 240 Output: Urine 685 800 85 Other: Voiding Method Indwelling Catheter Indwelling Catheter - Constitutional General appearance: Present: cooperative, no acute distress - Respiratory Details: Lungs sounds diminished bilaterally. Respirations even, nonlabored. Currently on 2 L nasal cannula with oxygen saturation 99%. Able to achieve 1000 mL on her incentive spirometry. - Cardiovascular Details: S1, S2 present. Regular rate and rhythm, sinus rhythm on telemetry. Palpable peripheral pulses bilaterally. No edema present. No calf pain or tenderness noted. - Gastrointestinal Gastrointestinal Comment(s): Abdomen soft, nontender, nondistended. Active bowel sounds present 4 quadrants. Positive bowel movement - Genitourinary Genitourinary Comment(s): Cheung present draining clear, yellow urine. Output 1485 mL in the last 24 hours. - Integumentary Integumentary Comment(s): Skin is warm and dry with evidence of good perfusion - Neurologic Neurologic: Present: CNII-XII intact - Musculoskeletal Musculoskeletal: Present: gait normal, strength equal bilaterally - Psychiatric Psychiatric: Present: A&O x's 3, appropriate affect, intact judgment & insight - Labs CBC & Chem 7: 03/01/20 04:04 03/01/20 04:04 Labs: Abnormal Lab Results - Last 24 Hours (Table) 03/01/20 03/01/20 03/01/20 Range/Units 00:56 04:04 04:04 RBC 3.49 L (3.80-5.40) m/uL MCV 103.3 H (80.0-100.0) fL APTT 57.1 H (22.0-30.0) sec Sodium (137-145) mmol/L POC Glucose (mg/dL) 117 H (75-99) mg/dL 03/01/20 Range/Units 04:04 RBC (3.80-5.40) m/uL MCV (80.0-100.0) fL APTT (22.0-30.0) sec Sodium 133 L (137-145) mmol/L POC Glucose (mg/dL) (75-99) mg/dL Assessment and Plan Assessment: 1. Severe triple-vessel coronary artery disease 2. Acute non-ST elevation myocardial infarction 3. Acute systolic heart failure, ischemic cardiomyopathy, severe LV dysfunction, ejection fraction 20-30% 4. Severe mitral valve regurgitation 5. Severe tricuspid valve regurgitation with severe pulmonary hypertension 6. Bilateral pleural effusions 7. Nonspecific mediastinal lymph nodes of 1.[address] angio of her chest 8. History of psoriatic arthritis 9. History of sarcoidosis 10. History of ankylosis spondylosis 11. History of left vocal cord paralysis, none currently 12. History of asthma 13. Severe pulmonary disease with preoperative FEV1 31% of predicted Plan: 1. Continue to optimize medically with aspirin, statin, beta edgar, IV heparin, Lasix and Aldactone. ALEX-I will to be discontinued 48 hours prior to surgery to prevent intraoperative hypotension 2. Encourage incentive spirometry use. 3. Increase activity as tolerated 4. Continue preoperative teaching 5. Medical management of her comorbidities per primary care service, cardiology, pulmonology 6. Plan is for CABG, MV repair, TV repair, SAWYER/left radial/EVH, possible SIRISHA, possible LV aneurysm repair, exclusion of the left atrial appendage with Dr. Beck March 7. More recommendations to follow Time with Patient: Greater than 30
[2020-03-01 10:04] LABS: Appearance,Urine Cloudy (Clear); Bacteria,Urine Occasional /hpf; Bilirubin,Urine Negative (Negative); Blood,Urine Trace (Negative); Color,Urine Yellow; Glucose,Urine (UA) Negative (Negative); Ketones,Urine Negative (Negative); Leukocyte Esterase,Urine Large (Negative); Mucus,Urine Rare /hpf; Nitrite,Urine Positive (Negative); PH, Urine 5.5 (5.0-8.0); Protein,Urine Trace (Negative); RBC,Urine 4 /hpf (0-5); Specific Gravity,Urine 1.017 (1.001-1.035); Squamous Epithelial Cell,Urine <1 /hpf (0-4); Uric Acid Crystals,Urine Rare /hpf; Urobilinogen,Urine <2.0 mg/dL (<2.0); WBC,Urine 123 /hpf (0-5)
--- NOTE | 2020-03-01 11:29 | PN ---
PROGRESS NOTE Sheryl is a 69-year-old lady that is admitted to hospital with multiple vessel coronary artery disease and has severe mitral regurgitation, tricuspid regurgitation, congestive heart failure. She is to undergo bypass surgery with mitral and tricuspid valve repair. This morning, she is stable and free of cardiac symptoms. PHYSICAL EXAM: Patient is comfortable at rest. Vital signs are stable. There is no jugular venous distention. Chest exam reveals good air entry bilaterally. Heart exam reveals first and second heart sounds. Systolic murmur at the apex. Abdomen soft. Exam of extremities did not reveal any edema. Peripheral pulses are felt. Labs show a hemoglobin of 11.9, potassium is 3.9, creatinine is 0.74. ASSESSMENT: 1. Three-vessel coronary artery disease. 2. Severe mitral regurgitation. 3. Severe tricuspid regurgitation. PLAN: Patient will undergo bypass with mitral and tricuspid valve repair. In the meantime, she will continue the aspirin, Lipitor, Lasix, Lopressor that she is on. MMODL / IJN: [id number] /
[2020-03-01] MEDS: HEPARIN SOD,PORK IN 0.45% NACL 25,000 UNIT in 0.45% NACL 1 250ML.BAG IV SCH (13:24)
--- NOTE | 2020-03-01 13:39 | P.PN ---
Subjective Progress Note Date: 03/01/20 Principal diagnosis: Acute non-ST elevation myocardial infarction, triple vessel coronary artery disease. Failed angioplasty and stenting. 69-year-old female patient was hospitalized yesterday due to concern of an acute ALLERGIC reaction and while during her stay in the emergency department the patient was found to have significant other medical problems including hypotension, abnormal cardiac enzymes with elevated troponins and abnormal EKG that showed some slightly elevated ST segment in the anterior apical leads in addition to anteroseptal leads. There were also some Q waves involving the anteroseptal Leads and the cardiac rhythm was sinus . Based on those, and based on abnormal troponins and abnormal EKG changes, the patient was taken to cardiac catheterization and the cath showed severe triple-vessel disease including total occlusion of the mid LAD. Attempt to do angioplasty and stenting of the mid LAD failed and the patient was referred to cardiothoracic surgery for possible coronary artery bypass surgery. Heart failure. Echocardiogram showed a LV fun ction was severely impaired with an ejection fraction of 25-30% and the patient also had segmental wall motion abnormalities and possible ASD. Severe mitral regurgitation was present. Severe tricuspid regurgitation was present. Pulmonary artery pressure was in the order of 55 mmHg. She is calm and comfortable and she denies having any chest pain. The chest x-ray showed CHF and the CAT scan of the chest showed no evidence of any pulmonary embolism. There was bilateral pleural effusion with interstitial edema consistent with CHF. These were new findings compared to the earlier CAT scan of the chest that was done on 09/26/2011. There was also some limited enlargement is on lymphadenopathy which is similar to the older study. Note that the patient also has other comorbidities including history of sarcoidosis that was diagnosed many years ago and the patient is currently in remission. The patient also has psoriasis and psoriatic arthritis and history of ankylosing spondylitis. The patient has not been taking any form of immunomodulating agents. She has been tried on different agents in the past and she has failed due to ALLERGIES. As such is not taking a treatment. No history of any interstitial lung disease. There is a vague history of left vocal cord paralysis, exact cause for that is unknown and it did not have any documentation in that regard. The patient does not have any hoarseness. No stridor on examination. The patient is currently in the intensive care unit. She is awaiting a cardiothoracic surgery evaluation. She claims that her personal performance and functional status. She was having no major difficulties in movement and walking up to Recently. No swelling in the lower extremity. Reevaluated today on 03/01/20, patient remains in the ICU, the plan is to have the patient undergo CABG, mitral and tricuspid repair on Sunday or of this week. Patient is on room air, she is very comfortable, she has IV fluid at 20 mL per hour, her O2 saturation is 92% on room air. Patient is hemodynamically stable. And she is in sinus rhythm rate of 80. Labs were noted to be unremarkable, heparin is therapeutic with a PTT of 57.1. Her urinalysis is showing evidence of pyuria and bacteriuria, hence a blood culture will be ordered. Patient has no symptoms. Patient is ALLERGIC to all kinds of antibiotics as listed Objective - Vital Signs Vital signs: Vital Signs Temp 98.1 F 03/01/20 12:00 Pulse 65 03/01/20 12:00 Resp 20 03/01/20 12:00 BP 96/60 03/01/20 12:00 Pulse Ox 99 03/01/20 12:00 Intake & Output 02/29/20 03/01/20 03/01/20 18:59 06:59 18:59 Intake Total 596.103 240 570 Output Total 685 800 185 Balance -88.897 -560 385 Weight 63.5 kg 63.5 kg Intake: IV 140 240 80 0.9 @ 20 140 240 80 Intake, IV Titration 216.103 250 Amount Heparin Sod,Pork in 0.45% 216.103 250 NaCl 25,000 unit In 0.45 % NaCl 1 250ml.bag @ 12 UNITS/KG/HR 6.858 mls/hr IV .Q24H [facility] Rx#: [id number] Oral 240 240 Output: Urine 685 800 185 Other: Voiding Method Indwelling Catheter Indwelling Catheter Toilet - Exam Physical Exam: Revealed a 69-year-old female in no distress, on room air. Head: Atraumatic normocephalic. HEENT:[Neck is supple.] [No neck masses.] [No thyromegaly.] [No JVD.] Chest: [Clear throughout, no crackles, no rhonchi, no wheezes.] Cardiac Exam: [Normal S1 and S2, no S3 gallop, no murmur.] Abdomen: [Soft, nontender, no megaly, no rebound, no guarding, normal bowel sounds.] Extremities: [No clubbing, no edema, no cyanosis.] Neurological Exam: [No focal neurologic deficit.] Alert and oriented 3. Psychiatric: Normal mood, affect and normal mental status examination. Skin: No rashes. - Labs CBC & Chem 7: 03/01/20 04:04 03/01/20 04:04 Labs: Abnormal Lab Results - Last 24 Hours (Table) 03/01/20 03/01/20 03/01/20 Range/Units 00:56 04:04 04:04 RBC 3.49 L (3.80-5.40) m/uL MCV 103.3 H (80.0-100.0) fL APTT 57.1 H (22.0-30.0) sec Sodium (137-145) mmol/L POC Glucose (mg/dL) 117 H (75-99) mg/dL Urine Appearance (Clear) Urine Protein (Negative) Urine Blood (Negative) Urine Nitrite (Negative) Ur Leukocyte Esterase (Negative) Urine WBC (0-5) /hpf Urine WBC Clumps (None) /hpf Uric Acid Crystals (None) /hpf Urine Bacteria (None) /hpf Urine Mucus (None) /hpf 03/01/20 03/01/20 Range/Units 04:04 09:40 RBC (3.80-5.40) m/uL MCV (80.0-100.0) fL APTT (22.0-30.0) sec Sodium 133 L (137-145) mmol/L POC Glucose (mg/dL) (75-99) mg/dL Urine Appearance Cloudy H (Clear) Urine Protein Trace H (Negative) Urine Blood Trace H (Negative) Urine Nitrite Positive H (Negative) Ur Leukocyte Esterase Large H (Negative) Urine WBC 123 H (0-5) /hpf Urine WBC Clumps Occasional H (None) /hpf Uric Acid Crystals Rare H (None) /hpf Urine Bacteria Occasional H (None) /hpf Urine Mucus Rare H (None) /hpf Assessment and Plan Assessment: Impression: Acute non-ST segment elevation myocardial infarction Triple-vessel coronary artery disease, failed angioplasty and stenting. Acute systolic congestive heart failure with LV dysfunction and ejection fraction of 25-30%. Severe valvular heart disease with moderate to severe mitral regurgitation and severe tricuspid regurgitation as well as severe pulmonary hypertension. Acute hypoxic respiratory failure secondary to acute systolic congestive heart failure Nonspecific mediastinal lymphadenopathy. History of sarcoidosis, currently inactive. History of ankylosing spondylitis. History of psoriatic arthritis. Mild intermittent asthma. Multiple drug ALLERGIES. Asymptomatic bacteriuria and pyuria, urine culture is pending. Recommendation: Continue present treatment plan including diuretics, Lasix, digoxin, beta blockers, Aldactone, Continue IV heparin. Continue incentive spirometry. Urine culture was ordered. We'll continue to follow. Time with Patient: Less than 30
--- NOTE | 2020-03-01 13:45 | P.PN ---
Subjective This is a pleasant 69 years old female with past medical history of asthma, back pain status post back fusion surgery, psoriasis, Pham's esophagus, degenerative disc disease, sarcoidosis, rheumatoid arthritis, paralyzed left vocal cord. She is a patient of Dr. Fall as her primary doctor. She presents because of dyspnea on and off of 2 days' duration thought this due to ALLERGIC reaction with normal respiratory solution she came to the hospital and found to have CHF. She denies chest pain, no coughing, no abdominal pain, no change in her bowel habits. No fever This morning patient is fully awake and alert, she is not in distress and she is able to smile. Blood pressure on the low side 91/63 this morning, she is saturating 93% on 4 L oxygen, heart rate is 87 and patient is afebrile. Chest x-ray: CHF. CT of the chest with IV contrast: Bilateral pleural effusion and a large anterior mediastinal lymph nodes 1.5 cm and interstitial edema, no pulmonary embolism. EKG showing slightly elevated ST in the anteroapical and miguel-septal leads . 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 No problem regarding her urine or bowel. No fever. Rest of vitals are stable blood pressure on the low normal systolic and this morning is 90/57, Patient remains on heparin drip and intravenous Lasix twice a day of, also she is on aspirin and metoprolol. Labs including CBC and BMP are stable. Occult blood in stool is negative and hemoglobin is stable Her last ejection fraction was about 25-30% and cardiology team are planning to do YNES today, she is undergoing workup for possible bypass surgery. Surgical team was consulted 02/27/2020 Patient is clinically is the same. No chest pain or dyspnea. Blood pressure 93/60, heart rate 57, patient is afebrile. However she still have active problems as shows in the YNES done yesterday which showed moderate to severe mitral regurgitation, severe tricuspid regurgitation, severe pulmonary hypertension, also LV ejection fraction as low as 30% with apical hypokinesia. Patient in the meantime remains on heparin drip and IV Lasix while still undergoing workup for possible bypass surgery. Surgery team already on the case 02/28/2020 Patient remains in the ICU with no chest pain or shortness of breath. Hemodynamically stable. Today she underwent bronchoscopy for evaluation of vocal cords which were un remarkable with no paralysis and no subglottic stenosis Her labs are stable She remains on heparin drip, oral Lasix 20 mg twice daily, digoxin, lisinopril 2.5 mg and metoprolol 12.5 mg and Aldactone 02/29/2020 Patient is resting comfortably in the ICU, no chest pain or dyspnea. Chest bronchoscopy yesterday which shows normal vocal cords with no subglottic stenosis. Vitals are stable, slightly bradycardic Labs including CBC and BMP are unremarkable She remains on heparin drip and oral Lasix, also she is on metoprolol and digoxin and aspirin Planned for cardiac bypass surgery by this coming 03/01/2020 Patient lying in bed comfortable, no new complaints. Patient is going to have surgery for her mitral valve and tricuspid valve disease as well as bypass surgery for coronary arteries on this coming . She is clinically stable. Vitals stable. Labs noted Objective - Vital Signs Vital signs: Vital Signs Temp 98.1 F 03/01/20 12:00 Pulse 65 03/01/20 12:00 Resp 20 03/01/20 12:00 BP 96/60 03/01/20 12:00 Pulse Ox 99 03/01/20 12:00 Intake & Output 02/29/20 03/01/20 03/01/20 18:59 06:59 18:59 Intake Total 596.103 240 570 Output Total 685 800 185 Balance -88.897 -560 385 Weight 63.5 kg 63.5 kg Intake: IV 140 240 80 0.9 @ 20 140 240 80 Intake, IV Titration 216.103 250 Amount Heparin Sod,Pork in 0.45% 216.103 250 NaCl 25,000 unit In 0.45 % NaCl 1 250ml.bag @ 12 UNITS/KG/HR 6.858 mls/hr IV .Q24H [facility] Rx#: [id number] Oral 240 240 Output: Urine 685 800 185 Other: Voiding Method Indwelling Catheter Indwelling Catheter Toilet - Exam GENERAL: The patient is alert and oriented x3, not in any acute distress. Well developed, well nourished. HEENT: Pupils are round and equally reacting to light. EOMI. No scleral icterus. No conjunctival pallor. Normocephalic, atraumatic. No pharyngeal erythema. No thyromegaly. CARDIOVASCULAR: S1 and S2 present. No murmurs, rubs, or gallops. PULMONARY: Chest is clear to auscultation, no wheezing or crackles. -ABDOMEN: Soft, nontender, nondistended, normoactive bowel sounds. No palpable organomegaly. Cheung catheter in place with clear urine MUSCULOSKELETAL: No joint swelling or deformity. EXTREMITIES: No cyanosis, clubbing, or pedal edema. NEUROLOGICAL: Gross neurological examination did not reveal any focal deficits. SKIN: No rashes. no petechiae. - Labs CBC & Chem 7: 03/01/20 04:04 03/01/20 04:04 Labs: Abnormal Lab Results - Last 24 Hours (Table) 03/01/20 03/01/20 03/01/20 Range/Units 00:56 04:04 04:04 RBC 3.49 L (3.80-5.40) m/uL MCV 103.3 H (80.0-100.0) fL APTT 57.1 H (22.0-30.0) sec Sodium (137-145) mmol/L POC Glucose (mg/dL) 117 H (75-99) mg/dL Urine Appearance (Clear) Urine Protein (Negative) Urine Blood (Negative) Urine Nitrite (Negative) Ur Leukocyte Esterase (Negative) Urine WBC (0-5) /hpf Urine WBC Clumps (None) /hpf Uric Acid Crystals (None) /hpf Urine Bacteria (None) /hpf Urine Mucus (None) /hpf 03/01/20 03/01/20 Range/Units 04:04 09:40 RBC (3.80-5.40) m/uL MCV (80.0-100.0) fL APTT (22.0-30.0) sec Sodium 133 L (137-145) mmol/L POC Glucose (mg/dL) (75-99) mg/dL Urine Appearance Cloudy H (Clear) Urine Protein Trace H (Negative) Urine Blood Trace H (Negative) Urine Nitrite Positive H (Negative) Ur Leukocyte Esterase Large H (Negative) Urine WBC 123 H (0-5) /hpf Urine WBC Clumps Occasional H (None) /hpf Uric Acid Crystals Rare H (None) /hpf Urine Bacteria Occasional H (None) /hpf Urine Mucus Rare H (None) /hpf Assessment and Plan Assessment: Non-STEMI secondary to Acute coronary artery syndrome with triple-vessel disea se, totally occluded mid LAD, critical stenosis in the left circumflex and diagonal branch of the RCA Acute systolic CHF with bilateral pleural effusion Enlarged mediastinal lymph nodes 1.5 cm History of asthma, not an active issue Psoriasis and psoriatic arthritis Pham's esophagus chronic back pain status post back fusion surgery 3 Degenerative disc disease Sarcoidosis Rheumatoid arthritis Paralyzed left vocal cord Plan: This is a pleasant 69 years old female who presents with ACS and CHF. Continue with aspirin and heparin drip. Cardiology and pulmonary/critical care consult. Patient failed recanalization by cardiac cath and his been evaluated for possible bypass surgery and aortic valve repair/replacement. cardiothoracic surgery has been consulted Labs and medication were reviewed.. Continue same treatment. Continue with symptomatic treatment. Resume home medication. Monitor lytes and vitals. DVT and GI prophylaxis. Further recommendations of the clinical course of the patient DVT prophylaxis: heparin GI Prophylaxis: Pepcid Prognosis is guarded
[2020-03-01] MEDS: HYDROcodone/APAP 7.5-325MG 1 EACH TAB PO PRN (21:36)
--- NOTE | 2020-03-02 07:12 | XR ---
EXAMINATION TYPE: XR chest 1V portable DATE OF EXAM: 03/02/2020 HISTORY: Shortness of breath. COMPARISON: 02/27/2020 TECHNIQUE: Single view of the chest is submitted. FINDINGS: Demonstrated are scattered senescent parenchymal change. Improved aeration at the right lung base. Small left pleural effusion persists. The heart is stable. Hilar and mediastinal structures are within normal limits. Degenerative changes are seen of the dorsal spine. IMPRESSION: 1. Improved aeration at the right lung base. Small left pleural effusion persists.
[2020-03-02] MEDS: HEPARIN SOD,PORK IN 0.45% NACL 25,000 UNIT in 0.45% NACL 1 250ML.BAG IV SCH ×2 (07:26→17:25)
--- NOTE | 2020-03-02 09:35 | P.PN ---
Subjective This is a pleasant 69 years old female with past medical history of asthma, back pain status post back fusion surgery, psoriasis, Pham's esophagus, degenerative disc disease, sarcoidosis, rheumatoid arthritis, paralyzed left vocal cord. She is a patient of Dr. Fall as her primary doctor. She presents because of dyspnea on and off of 2 days' duration thought this due to ALLERGIC reaction with normal respiratory solution she came to the hospital and found to have CHF. She denies chest pain, no coughing, no abdominal pain, no change in her bowel habits. No fever This morning patient is fully awake and alert, she is not in distress and she is able to smile. Blood pressure on the low side 91/63 this morning, she is saturating 93% on 4 L oxygen, heart rate is 87 and patient is afebrile. Chest x-ray: CHF. CT of the chest with IV contrast: Bilateral pleural effusion and a large anterior mediastinal lymph nodes 1.5 cm and interstitial edema, no pulmonary embolism. EKG showing slightly elevated ST in the anteroapical and miguel-septal leads . 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 No problem regarding her urine or bowel. No fever. Rest of vitals are stable blood pressure on the low normal systolic and this morning is 90/57, Patient remains on heparin drip and intravenous Lasix twice a day of, also she is on aspirin and metoprolol. Labs including CBC and BMP are stable. Occult blood in stool is negative and hemoglobin is stable Her last ejection fraction was about 25-30% and cardiology team are planning to do YNES today, she is undergoing workup for possible bypass surgery. Surgical team was consulted 02/27/2020 Patient is clinically is the same. No chest pain or dyspnea. Blood pressure 93/60, heart rate 57, patient is afebrile. However she still have active problems as shows in the YNES done yesterday which showed moderate to severe mitral regurgitation, severe tricuspid regurgitation, severe pulmonary hypertension, also LV ejection fraction as low as 30% with apical hypokinesia. Patient in the meantime remains on heparin drip and IV Lasix while still undergoing workup for possible bypass surgery. Surgery team already on the case 02/28/2020 Patient remains in the ICU with no chest pain or shortness of breath. Hemodynamically stable. Today she underwent bronchoscopy for evaluation of vocal cords which were un remarkable with no paralysis and no subglottic stenosis Her labs are stable She remains on heparin drip, oral Lasix 20 mg twice daily, digoxin, lisinopril 2.5 mg and metoprolol 12.5 mg and Aldactone 02/29/2020 Patient is resting comfortably in the ICU, no chest pain or dyspnea. Chest bronchoscopy yesterday which shows normal vocal cords with no subglottic stenosis. Vitals are stable, slightly bradycardic Labs including CBC and BMP are unremarkable She remains on heparin drip and oral Lasix, also she is on metoprolol and digoxin and aspirin Planned for cardiac bypass surgery by this coming 03/01/2020 Patient lying in bed comfortable, no new complaints. Patient is going to have surgery for her mitral valve and tricuspid valve disease as well as bypass surgery for coronary arteries on this coming . She is clinically stable. Vitals stable. Labs noted 03/02/2020 Patient is awake and alert, she is comfortable on the select unit today. She came from intensive care unit yesterday. She was complaining of from pain in her right foot this morning started from yesterday, she thought this could be due to her transfer and she hit her foot, we'll check x-ray blood pressure 107/52. She still on heparin drip, oral Lasix and aspirin. patient and her heart surgery later on this week. Objective - Vital Signs Vital signs: Vital Signs Temp 97.6 F 03/02/20 08:00 Pulse 85 03/02/20 08:00 Resp 16 03/02/20 04:00 BP 107/52 03/02/20 08:00 Pulse Ox 95 03/02/20 08:00 Intake & Output 03/01/20 03/02/20 03/02/20 18:59 06:59 18:59 Intake Total 570 Output Total 185 400 Balance 385 -400 Weight 63.5 kg 54.3 kg Intake: IV 80 0.9 @ 20 80 Intake, IV Titration 250 Amount Heparin Sod,Pork in 0.45% 250 NaCl 25,000 unit In 0.45 % NaCl 1 250ml.bag @ 12 UNITS/KG/HR 6.858 mls/hr IV .Q24H [facility] Rx#: [id number] Oral 240 Output: Urine 185 400 Other: Voiding Method Bedside Commode # Voids 1 1 - Exam GENERAL: The patient is alert and oriented x3, not in any acute distress. Well developed, well nourished. HEENT: Pupils are round and equally reacting to light. EOMI. No scleral icterus. No conjunctival pallor. Normocephalic, atraumatic. No pharyngeal erythema. No thyromegaly. CARDIOVASCULAR: S1 and S2 present. No murmurs, rubs, or gallops. PULMONARY: Chest is clear to auscultation, no wheezing or crackles. -ABDOMEN: Soft, nontender, nondistended, normoactive bowel sounds. No palpable organomegaly. Cheung catheter in place with clear urine MUSCULOSKELETAL: No joint swelling or deformity. EXTREMITIES: No cyanosis, clubbing, or pedal edema. NEUROLOGICAL: Gross neurological examination did not reveal any focal deficits. SKIN: No rashes. no petechiae. - Labs CBC & Chem 7: 03/01/20 04:04 03/01/20 04:04 Labs: Abnormal Lab Results - Last 24 Hours (Table) 03/01/20 03/02/20 Range/Units 09:40 06:36 APTT 51.3 H (22.0-30.0) sec Urine Appearance Cloudy H (Clear) Urine Protein Trace H (Negative) Urine Blood Trace H (Negative) Urine Nitrite Positive H (Negative) Ur Leukocyte Esterase Large H (Negative) Urine WBC 123 H (0-5) /hpf Urine WBC Clumps Occasional H (None) /hpf Uric Acid Crystals Rare H (None) /hpf Urine Bacteria Occasional H (None) /hpf Urine Mucus Rare H (None) /hpf Microbiology - Last 24 Hours (Table) 03/01/20 09:40 Urine Culture - Preliminary Urine,Voided Assessment and Plan Assessment: Non-STEMI secondary to Acute coronary artery syndrome with triple-vessel disease, totally occluded mid LAD, critical stenosis in the left circumflex and diagonal branch of the RCA Acute systolic CHF with bilateral pleural effusion Enlarged mediastinal lymph nodes 1.5 cm History of asthma, not an active issue Psoriasis and psoriatic arthritis Pham's esophagus chronic back pain status post back fusion surgery 3 Degenerative disc disease Sarcoidosis Rheumatoid arthritis Paralyzed left vocal cord Plan: This is a pleasant 69 years old female who presents with ACS and CHF. Continue with aspirin and heparin drip. Cardiology and pulmonary/critical care consult. Patient failed recanalization by cardiac cath and his been evaluated for possible bypass surgery and aortic valve repair/replacement. cardiothoracic surgery has been consulted Labs and medication were reviewed.. Continue same treatment. Continue with symptomatic treatment. Resume home medication. Monitor lytes and vitals. DVT and GI prophylaxis. Further recommendations of the clinical course of the patient DVT prophylaxis: heparin GI Prophylaxis: Pepcid Prognosis is guarded
[2020-03-02] MEDS: FAMOTIDINE 20 MG TAB PO SCH ×2 (09:47→20:00)
[2020-03-02] MEDS: SPIRONOLACTONE 25 MG TAB PO SCH (09:47)
[2020-03-02] MEDS: ASPIRIN 81 MG PO SCH (09:47)
[2020-03-02] MEDS: ATORVASTATIN 80 MG TAB PO SCH (09:47)
[2020-03-02] MEDS: FUROSEMIDE 20 MG TAB PO SCH ×2 (09:47→17:25)
[2020-03-02] MEDS: MUPIROCIN 2% OINT 22 GM TUBE NASAL SCH ×2 (09:47→20:05)
[2020-03-02] MEDS: METOPROLOL TARTRATE 12.5 MG TAB PO SCH ×3 (10:00→21:07)
--- NOTE | 2020-03-02 10:16 | XR ---
EXAMINATION TYPE: XR foot complete RT DATE OF EXAM: 03/02/2020 CLINICAL HISTORY: pain TECHNIQUE: Frontal, lateral and oblique images of the right foot are obtained. COMPARISON: None. FINDINGS: There is no acute fracture/dislocation evident. Moderate degenerative narrowing first meta tarsal phalangeal joint with mild hallux valgus deformity. The overlying soft tissue appears unremark able. IMPRESSION: There is no acute fracture or dislocation. ICD 10 NO FRACTURE, INITIAL EVALUATION
--- NOTE | 2020-03-02 11:32 | P.PN ---
Subjective Progress Note Date: 03/02/20 Principal diagnosis: Severe triple-vessel coronary artery disease, acute non-ST elevation myocardial infarction, acute systolic heart failure with an ejection fraction between 25 a nd 30%, severe mitral valve regurgitation, severe tricuspid valve regurgitation with severe pulmonary hypertension, bilateral pleural effusions, nonspecific mediastinal lymph nodes of 1.[address] angio of her chest. Past medical history significant for psoriatic arthritis, sarcoidosis, ankylosis spondylosis, left vocal cord paralysis, asthma. Severe pulmonary disease with preoperative FEV1 31% of predicted, more likely results of acute systolic heart failure status. The patient was seen and examined at her bedside on the cardiac stepdown unit in follow-up today 03/02/2020. She is awake, alert and oriented 3 and appears in no apparent acute distress. Currently she denies any complaints of pain or shortness of breath. She is complaining of some pain to her right foot this morning. Oxygen saturation are 99% on room air and she is achieving 1000 mL on her incentive spirometry. She is tentatively scheduled for myocardial revascularization surgery, mitral valve repair, right cuspid valve repair, possible left ventricular aneurysm repair, and exclusion of her left atrial appendage on , 03/04/2020 to be completed by Dr. Sakina Beck. Preoperative teaching has been reinforced and her questions answered to the best of my ability. Objective - Vital Signs Vital signs: Vital Signs Temp 97.1 F L 03/02/20 09:38 Pulse 90 03/02/20 09:38 Resp 16 03/02/20 08:00 BP 110/66 03/02/20 09:38 Pulse Ox 100 03/02/20 09:38 Intake & Output 03/01/20 03/02/20 03/02/20 18:59 06:59 18:59 Intake Total 570 Output Total 185 400 Balance 385 -400 Weight 63.5 kg 54.3 kg Intake: IV 80 0.9 @ 20 80 Intake, IV Titration 250 Amount Heparin Sod,Pork in 0.45% 250 NaCl 25,000 unit In 0.45 % NaCl 1 250ml.bag @ 12 UNITS/KG/HR 6.858 mls/hr IV .Q24H [facility] Rx#: [id number] Oral 240 Output: Urine 185 400 Other: Voiding Method Bedside Commode Bedside Commode # Voids 1 1 - Exam This is a pleasant 69-year-old female patient who is resting comfortably in bed on the cardiac stepdown unit. She is awake, alert and oriented 3 and is in no apparent acute distress. Oxygen saturation are 99% on room air. - Constitutional General appearance: Present: cooperative, no acute distress, thin - EENT Eyes: Present: edentulous, PERRLA, normal appearance. Absent: scleral icterus ENT: Present: hearing grossly normal - Neck Details: Neck is supple, no lymphadenopathy, no JVD. - Respiratory Details: Essentially clear to her bilateral upper lobes, diminished bilateral bases. No wheezes, rhonchi or crackles. Respirations are symmetrical and nonlabored. Oxygen saturation is 99% on room air. Achieving 1000 mL on her incentive spirometry. - Cardiovascular Details: Regular rhythm and rate. S1 and S2 present, negative for S3, gallop or murmur. No edema present. - Gastrointestinal Gastrointestinal Comment(s): Abdomen is soft, nontender and nondistended. Active bowel sounds present in all 4 abdominal quadrants. No guarding or rigidity. No organomegaly appreciated. - Genitourinary Genitourinary Comment(s): Voiding clear toya urine. - Integumentary Integumentary Comment(s): Skin is warm and dry. No clubbing or cyanosis is present. No rash or abnormal pigmentation is present. - Neurologic Neurologic: Present: CNII-XII intact - Musculoskeletal Musculoskeletal: Present: gait normal, generalized weakness, strength equal bilaterally - Psychiatric Psychiatric: Present: A&O x's 3, appropriate affect, intact judgment & insight - Allied health notes Allied health notes reviewed: nursing - Labs CBC & Chem 7: 03/01/20 04:04 03/01/20 04:04 Labs: Abnormal Lab Results - Last 24 Hours (Table) 03/02/20 Range/Units 06:36 APTT 51.3 H (22.0-30.0) sec Microbiology - Last 24 Hours (Table) 03/01/20 09:40 Urine Culture - Preliminary Urine,Voided Assessment and Plan Assessment: 1. Severe triple-vessel coronary artery disease 2. Acute non-ST elevation myocardial infarction, peak troponin level 1.810 3. Acute systolic heart failure with an overall left ventricular systolic funct ion to be severely impaired with an ejection fraction between 25 and 30% and an admission BNP of 12,000 4. Severe mitral valve regurgitation 5. Severe tricuspid valve regurgitation with severe pulmonary hypertension 6. Bilateral pleural effusions 7. Nonspecific mediastinal lymph nodes of 1.[address] angio of her chest 8. History of psoriatic arthritis 9. History of sarcoidosis 10. History of ankylosis spondylosis 11. History of left vocal cord paralysis 12. History of asthma 13. Multiple drug ALLERGIES 14. Severe pulmonary disease with preoperative FEV1 31% of predicted value Plan: 1. Continue to optimize medically with aspirin, statin, beta edgar, IV heparin, Lasix and Aldactone. Myron inhibitor will to be discontinued 48 hours prior to surgery to prevent intraoperative and postoperative hypotension. 2. Encourage incentive spirometry use 10 times every hour while awake. 3. Increase activity as tolerated. 4. Continue to reinforce preoperative teaching. 5. Medical management of her comorbidities per primary care service, cardiology, pulmonology critical care medicine. 6. The patient is scheduled for myocardial revascularization, mitral valve repair, tricuspid valve repair, SAWYER/left radial/EVH, possible SIRISHA, possible left ventricle aneurysm repair, exclusion of the left atrial appendage with Dr. Beck March 7. Urine culture results remain pending, will continue to follow. 8. More recommendations to follow based on patient's clinical course. Time with Patient: Greater than 30
--- NOTE | 2020-03-02 12:23 | P.PN ---
Subjective Progress Note Date: 03/02/20 69-year-old female admitted to the hospital with an acute non-ST elevation myocardial infarction, found to have significant triple-vessel coronary artery disease, failed angioplasty and stenting. Underwent a YNES which revealed ischemic cardiomyopathy, severe mitral severe tricuspid regurgitation. The patient is scheduled for myocardial revascularization, mitral valve repair, tricuspid valve repair, SAWYER/left radial/88, possible SIRISHA, possible left ventricular aneurysm repair, excision of left atrial appendage, this surgery is scheduled tomorrow with Dr. Beck. Patient was seen and examined this morning , she denies any chest discomfort, breathing is stable. Blood pressure 110/60, 98/50, heart rate in the 70s, 95% on room air. Objective - Vital Signs Vital signs: Vital Signs Temp 97.4 F L 03/02/20 12:14 Pulse 75 03/02/20 12:14 Resp 16 03/02/20 11:46 BP 98/54 03/02/20 12:14 Pulse Ox 95 03/02/20 12:14 Intake & Output 03/01/20 03/02/20 03/02/20 18:59 06:59 18:59 Intake Total 570 240 Output Total 185 400 Balance 385 -400 240 Weight 63.5 kg 54.3 kg Intake: IV 80 0.9 @ 20 80 Intake, IV Titration 250 Amount Heparin Sod,Pork in 0.45% 250 NaCl 25,000 unit In 0.45 % NaCl 1 250ml.bag @ 12 UNITS/KG/HR 6.858 mls/hr IV .Q24H [facility] Rx#: [id number] Oral 240 240 Output: Urine 185 400 Other: Voiding Method Bedside Commode Bedside Commode # Voids 1 1 - Exam PHYSICAL EXAMINATION: GENERAL: 69-year-old female in no acute distress at the time of my examination HEENT: Head is atraumatic, normocephalic. Pupils equal, round. Sclera anicteric. Conjunctiva are clear. Mucous membranes of the mouth are moist. Neck is supple. There is no elevated jugular venous pressure. No carotid bruit is heard. HEART EXAMINATION: Heart S1 and S2 systolic murmur is heard at the apex CHEST EXAMINATION: Lungs are clear to auscultation and precussion. No chest wall tenderness is noted on palpation or with deep breathing. ABDOMEN: Soft, nontender. Bowel sounds are heard. No organomegaly noted. EXTREMITIES: 2+ peripheral pulses with no evidence of peripheral edema and no calf tenderness noted. NEUROLOGIC patient is awake, alert and oriented 3 . . - Labs CBC & Chem 7: 03/01/20 04:04 03/01/20 04:04 Labs: Abnormal Lab Results - Last 24 Hours (Table) 03/02/20 Range/Units 06:36 APTT 51.3 H (22.0-30.0) sec Microbiology - Last 24 Hours (Table) 03/01/20 09:40 Urine Culture - Preliminary Urine,Voided Assessment and Plan Plan: Assessment and plan: 1. Severe triple-vessel coronary artery disease 2. Acute non-ST elevation myocardial infarction 3. Acute systolic heart failure with an overall left ventricular systolic function to be severely impaired with an ejection fraction between 25 and 30% and an admission BNP of 12,000 4. Severe mitral valve regurgitation 5. Severe tricuspid valve regurgitation with severe pulmonary hypertension 6. Bilateral pleural effusions 7. Nonspecific mediastinal lymph nodes of 1.[address] angio of her chest 8. History of psoriatic arthritis 9. History of sarcoidosis 10. History of ankylosis spondylosis 11. History of left vocal cord paralysis 12. History of asthma 13. Multiple drug ALLERGIES 14. Severe pulmonary disease with preoperative FEV1 31% of predicted value 15 hyperlipidemia Plan Patient is scheduled to undergo myocardial revascularization, mitral valve repair, tricuspid valve repair, coronary artery bypass grafting surgery tomorrow with Dr. Beck. We will continue to follow. DNP note has been reviewed, I agree with a documented findings and plan of care. Patient was seen and examined.
--- NOTE | 2020-03-02 13:36 | P.PN ---
Subjective Progress Note Date: 03/02/20 Principal diagnosis: Acute non-ST elevated myocardial infarction, triple vessel coronary artery disease 69-year-old female patient was hospitalized yesterday due to concern of an acute ALLERGIC reaction and while during her stay in the emergency department the patient was found to have significant other medical problems including hypotension, abnormal cardiac enzymes with elevated troponins and abnormal EKG that showed some slightly elevated ST segment in the anterior apical leads in addition to anteroseptal leads. There were also some Q waves involving the anteroseptal Leads and the cardiac rhythm was sinus . Based on those, and based on abnormal troponins and abnormal EKG changes, the patient was taken to cardiac catheterization and the cath showed severe triple-vessel disease including total occlusion of the mid LAD. Attempt to do angioplasty and stenting of the mid LAD failed and the patient was referred to cardiothoracic surgery for possible coronary artery bypass surgery. Heart failure. Echocardiogram showed a LV function was severely impaired with an ejection fraction of 25-30% and the patient also had segmental wall motion abnormalities and possible ASD. Severe mitral regurgitation was present. Severe tricuspid regurgitation was present. Pulmonary artery pressure was in the order of 55 mmHg. She is calm and comfortable and she denies having any chest pain. The chest x-ray showed CHF and the CAT scan of the chest showed no evidence of any pulmonary embolism. There was bilateral pleural effusion with interstitial edema consistent with C HF. These were new findings compared to the earlier CAT scan of the chest that was done on 09/26/2011. There was also some limited enlargement is on lymphadenopathy which is similar to the older study. Note that the patient also has other comorbidities including history of sarcoidosis that was diagnosed many years ago and the patient is currently in remission. The patient also has psoriasis and psoriatic arthritis and history of ankylosing spondylitis. The patient has not been taking any form of immunomodulating agents. She has been tried on different agents in the past and she has failed due to ALLERGIES. As such is not taking a treatment. No history of any interstitial lung disease. There is a vague history of left vocal cord paralysis, exact cause for that is unknown and it did not have any documentation in that regard. The patient does not have any hoarseness. No stridor on examination. The patient is currently in the intensive care unit. She is awaiting a cardiothoracic surgery evaluation. She claims that her personal performance and functional status. She was having no major difficulties in movement and walking up to Recently. No swelling in the lower extremity. Reevaluated today on 03/01/20, patient remains in the ICU, the plan is to have the patient undergo CABG, mitral and tricuspid repair on Sunday or of this week. Patient is on room air, she is very comfortable, she has IV fluid at 20 mL per hour, her O2 saturation is 92% on room air. Patient is hemodynamically stable. And she is in sinus rhythm rate of 80. Labs were noted to be unremarkable, heparin is therapeutic with a PTT of 57.1. Her urinalysis is showing evidence of pyuria and bacteriuria, hence a blood culture will be ordered. Patient has no symptoms. Patient is ALLERGIC to all kinds of antibiotics as listed On 03/02/2020 patient seen in follow-up on selective care unit, she is sitting up in the recliner, in no acute distress, denies any complaints of shortness of breath or chest pain. Room air pulse ox is 95%, blood pressures 90/54, no fever or chills, lung sounds are clear to auscultation, patient remains on heparin infusion. Her surgery has been scheduled for . Yesterday's urinalysis shows evidence of infection with large amount of leukocyte esterase, positive nitrites, and large number of WBCs. Urine culture was positive for gram- negative bacilli with greater than 100,000 CFU/ml. Final culture is pending. Patient started, no cough or congestion, no chest pain. No acute events overnight Objective - Vital Signs Vital signs: Vital Signs Temp 97.4 F L 03/02/20 12:14 Pulse 75 03/02/20 12:14 Resp 16 03/02/20 11:46 BP 98/54 03/02/20 12:14 Pulse Ox 95 03/02/20 12:14 Intake & Output 03/01/20 03/02/20 03/02/20 18:59 06:59 18:59 Intake Total 570 240 Output Total 185 400 Balance 385 -400 240 Weight 63.5 kg 54.3 kg Intake: IV 80 0.9 @ 20 80 Intake, IV Titration 250 Amount Heparin Sod,Pork in 0.45% 250 NaCl 25,000 unit In 0.45 % NaCl 1 250ml.bag @ 12 UNITS/KG/HR 6.858 mls/hr IV .Q24H [facility] Rx#: [id number] Oral 240 240 Output: Urine 185 400 Other: Voiding Method Bedside Commode Bedside Commode # Voids 1 1 - Exam GENERAL EXAM: Alert, very pleasant, 69-year-old white female, on room air, with a pulse ox of 95%, comfortable in no apparent distress. HEAD: Normocephalic/atraumatic. EYES: Normal reaction of pupils, equal size. Conjunctiva pink, sclera white. NOSE: Clear with pink turbinates. THROAT: No erythema or exudates. NECK: No masses, no JVD, no thyroid enlargement, no adenopathy. CHEST: No chest wall deformity. Symmetrical expansion. LUNGS: Equal air entry with no crackles, wheeze, rhonchi or dullness. CVS: Regular rate and rhythm, normal S1 and S2, no gallops, no murmurs, no rubs ABDOMEN: Soft, nontender. No hepatosplenomegaly, normal bowel sounds, no guarding or rigidity. EXTREMITIES: No clubbing, no edema, no cyanosis, 2+ pulses and upper and lower extremities. MUSCULOSKELETAL: Muscle strength and tone normal. SPINE: No scoliosis or deformity SKIN: No rashes CENTRAL NERVOUS SYSTEM: Alert and oriented -3. No focal deficits, tone is normal in all 4 extremities. PSYCHIATRIC: Alert and oriented -3. Appropriate affect. Intact judgment and insight. - Labs CBC & Chem 7: 03/01/20 04:04 03/01/20 04:04 Labs: Abnormal Lab Results - Last 24 Hours (Table) 03/02/20 Range/Units 06:36 APTT 51.3 H (22.0-30.0) sec Microbiology - Last 24 Hours (Table) 03/01/20 09:40 Urine Culture - Preliminary Urine,Voided Gram Neg Bacilli Assessment and Plan Plan: Assessment: Acute non-ST segment elevation myocardial infarction Triple-vessel coronary artery disease, failed angioplasty and stenting. Acute systolic congestive heart failure with LV dysfunction and ejection fraction of 25-30%. Severe valvular heart disease with moderate to severe mitral regurgitation and severe tricuspid regurgitation as well as severe pulmonary hypertension. Acute hypoxic respiratory failure secondary to acute systolic congestive heart failure Nonspecific mediastinal lymphadenopathy. History of sarcoidosis, currently inactive. History of ankylosing spondylitis. History of psoriatic arthritis. Mild intermittent asthma. Multiple drug ALLERGIES. Asymptomatic bacteriuria and pyuria, urine culture showing gram-negative b acilli, patient has been covered with Plan: Patient remains stable, no complaints ts of shortness of breath or chest pain, remains on heparin infusion, vital signs are stable, patient is on room air, encourage deep breathing and coughing, surgery has been scheduled for . Continue to closely follow along with CT surgery, continue present treatment including diuretics and digoxin and beta blockers and Aldactone. I performed a history & physical examination of the patient and discussed their management with my nurse practitioner, Yolanda Bonds. I reviewed the nurse practitioner's note and agree with the documented findings and plan of care. Lung sounds are positive for clear breath sounds. The findings and the impression was discussed with the patient. I attest to the documentation by the nurse practitioner. Time with Patient: Less than 30
[2020-03-02] MEDS ORDERED: NITROFURANTOIN MONOHYD/M-CRYST 100 MG CAP PO SCH (15:45)
[2020-03-02] MEDS: HYDROcodone/APAP 7.5-325MG 1 EACH TAB PO PRN (19:59)
[2020-03-03] MEDS: MELATONIN 3 MG TABLET PO PRN ×2 (02:34→22:45)
[2020-03-03 07:47] LABS: Glucose,Whole Blood 133 mg/dL (75-99)
[2020-03-03] MEDS: ATORVASTATIN 80 MG TAB PO SCH (07:49)
[2020-03-03] MEDS: FAMOTIDINE 20 MG TAB PO SCH ×2 (07:49→19:53)
[2020-03-03] MEDS: SPIRONOLACTONE 25 MG TAB PO SCH (07:49)
[2020-03-03] MEDS: FUROSEMIDE 20 MG TAB PO SCH ×2 (07:50→16:27)
[2020-03-03] MEDS: ASPIRIN 81 MG PO SCH (07:51)
[2020-03-03] MEDS: MUPIROCIN 2% OINT 22 GM TUBE NASAL SCH ×2 (07:51→19:54)
[2020-03-03] MEDS: METOPROLOL TARTRATE 12.5 MG TAB PO SCH ×2 (07:52→19:53)
[2020-03-03 07:55] LABS: Basophils % (A) 0 %; Eosinophils # (A) 0.1 k/uL (0-0.7); Eosinophils % (A) 1 %; HCT 36.3 % (34.0-46.0); HGB 11.9 gm/dL (11.4-16.0); Lymphocytes # (A) 0.5 k/uL (1.0-4.8); Lymphocytes % (A) 6 %; MCH 33.1 pg (25.0-35.0); MCHC 32.7 g/dL (31.0-37.0); MCV 101.1 fL (80.0-100.0); Macrocytosis Slight; Mean Platelet Volume 8.6; Monocytes # (A) 0.7 k/uL (0-1.0); Monocytes % (A) 9 %; Neutrophils # (A) 6.8 k/uL (1.3-7.7); Neutrophils % (A) 83 %; Platelet Count 173 k/uL (150-450); RBC 3.59 m/uL (3.80-5.40); RDW 13.7 % (11.5-15.5); WBC 8.2 k/uL (3.8-10.6)
[2020-03-03] MEDS ORDERED: ACETAMINOPHEN TAB 325 MG TAB PO PRN (09:12)
[2020-03-03] MEDS: HYDROcodone/APAP 7.5-325MG 1 EACH TAB PO PRN (09:21)
--- NOTE | 2020-03-03 10:29 | P.PN ---
Subjective Progress Note Date: 03/03/20 Principal diagnosis: Severe triple-vessel coronary artery disease, acute non-ST elevation myocardial infarction, acute systolic heart failure with an ejection fraction between 25 a nd 30%, severe mitral valve regurgitation, severe tricuspid valve regurgitation with severe pulmonary hypertension, bilateral pleural effusions, nonspecific mediastinal lymph nodes of 1.[address] angio of her chest. Past medical history significant for psoriatic arthritis, sarcoidosis, ankylosis spondylosis, left vocal cord paralysis, asthma. Severe pulmonary disease with preoperative FEV1 31% of predicted, more likely results of acute systolic heart failure status. The patient was seen and examined at her bedside on the cardiac stepdown unit today 03/03/2020 in follow-up. Currently she is laying in bed, she is awake, alert and oriented 3 and in no acute distress. Currently she denies any complaints of chest pain, tightness, pressure or shortness of breath. The patient does report that her right foot feels much improved today and is able to ambulate on it. Oxygen saturation are 96% on room air and she is achieving 1000 mL on her incentive spirometry. Preoperative teaching has been reinforced with the patient and her questions answered to the best my ability. Her urine culture from 03/01/2020 shows positive for Klebsiella Oxytoca and she was started on nitrofurantoin 100 mg by mouth twice a day. She is scheduled for myocardial revascularization surgery, mitral valve repair, tricuspid valve repair, possible left ventricular aneurysm repair, and exclusion of her left atrial appendage tomorrow , 03/04/2020 to be completed by Dr. Sakina Beck. Objective - Vital Signs Vital signs: Vital Signs Temp 97.3 F L 03/03/20 07:38 Pulse 84 03/03/20 07:38 Resp 17 03/03/20 03:59 BP 99/54 03/03/20 07:38 Pulse Ox 95 03/03/20 07:38 Intake & Output 03/02/20 03/03/20 03/03/20 18:59 06:59 18:59 Intake Total 970 Output Total 400 Balance 970 -400 Weight 53 kg Intake: Intake, IV Titration 250 Amount Heparin Sod,Pork in 0.45% 250 NaCl 25,000 unit In 0.45 % NaCl 1 250ml.bag @ 12 UNITS/KG/HR 6.858 mls/hr IV .Q24H [facility] Rx#: [id number] Oral 720 Output: Urine 400 Other: Voiding Method Diaper Diaper # Voids 2 1 # Bowel Movements 1 1 - Exam This is a pleasant 69-year-old female patient who is resting comfortably in bed on the cardiac stepdown unit. She is awake, alert and oriented 3 and is in no apparent acute distress. Oxygen saturation are 96% on room air. - Constitutional General appearance: Present: cooperative, no acute distress, thin - EENT Eyes: Present: PERRLA, normal appearance. Absent: scleral icterus ENT: Present: hearing grossly normal - Neck Details: Neck is supple, no JVD. Neck: Absent: lymphadenopathy - Respiratory Details: Lung sounds are essentially clear to her bilateral upper lobes, diminished to her bilateral bases. No wheezes, rhonchi or crackles. Respirations are symmetrical and nonlabored. Oxygen saturation is 96% on room air. Achieving 1000 mL on her incentive spirometry. - Cardiovascular Details: Regular rhythm and rate. S1 and S2 present, negative for S3, gallop or murmur. No edema present. - Gastrointestinal Gastrointestinal Comment(s): Abdomen is soft, nontender and nondistended. Active bowel sounds present in all 4 abdominal quadrants. No guarding or rigidity. No organomegaly. - Genitourinary Genitourinary Comment(s): Voiding clear toya urine. - Integumentary Integumentary Comment(s): Skin is warm and dry. No clubbing or cyanosis is present. No rash or abnormal pigmentation. - Neurologic Neurologic: Present: CNII-XII intact - Musculoskeletal Musculoskeletal: Present: gait normal, generalized weakness, strength equal bilaterally - Psychiatric Psychiatric: Present: A&O x's 3, appropriate affect, intact judgment & insight - Allied health notes Allied health notes reviewed: nursing - Labs CBC & Chem 7: 03/03/20 06:04 03/01/20 04:04 Labs: Abnormal Lab Results - Last 24 Hours (Table) 03/03/20 03/03/20 03/03/20 Range/Units 06:04 06:04 07:45 RBC 3.59 L (3.80-5.40) m/uL MCV 101.1 H (80.0-100.0) fL Lymphocytes # 0.5 L (1.0-4.8) k/uL APTT 53.5 H (22.0-30.0) sec POC Glucose (mg/dL) 133 H (75-99) mg/dL Microbiology - Last 24 Hours (Table) 03/01/20 09:40 Urine Culture - Final Urine,Voided Klebsiella oxytoca Assessment and Plan Assessment: 1. Severe triple-vessel coronary artery disease 2. Acute non-ST elevation myocardial infarction, peak troponin level 1.810 3. Acute systolic heart failure with an overall left ventricular systolic function to be severely impaired with an ejection fraction between 25 and 30% and an admission BNP of 12,000 4. Severe mitral valve regurgitation 5. Severe tricuspid valve regurgitation with severe pulmonary hypertension 6. Bilateral pleural effusions 7. Nonspecific mediastinal lymph nodes of 1.[address] angio of her chest 8. History of psoriatic arthritis 9. History of sarcoidosis 10. History of ankylosis spondylosis 11. History of left vocal cord paralysis 12. History of asthma 13. Multiple drug ALLERGIES 14. Severe pulmonary disease with preoperative FEV1 31% of predicted value 15. Preoperative urinary tract infection with urine culture positive for Klebsiella oxytoca, currently being treated with nitrofurantoin Plan: 1. Continue to optimize medically with aspirin, statin, beta edgar, IV heparin, Lasix and Aldactone. Myron inhibitor has been discontinued to prevent intraoperative and postoperative hypotension. 2. Encourage incentive spirometry use 10 times every hour while awake. 3. Increase activity as tolerated. 4. Continue to reinforce preoperative teaching. 5. Medical management of her comorbidities per primary care service, cardiology, pulmonology critical care medicine. 6. The patient is scheduled for myocardial revascularization, mitral valve repair, tricuspid valve repair, SAWYER/left radial/EVH, possible SIRISHA, possible left ventricle aneurysm repair, exclusion of the left atrial appendage with Dr. Beck tomorrow, March 7. Urine culture shows positive for Klebsiella oxytoca, she was started on nitrofurantoin 100 mg by mouth twice a day yesterday 03/02/2020. 8. Nothing by mouth after midnight. 9. More recommendations to follow based on patient's clinical course. Time with Patient: Greater than 30
--- NOTE | 2020-03-03 10:52 | US ---
EXAMINATION TYPE: US venous doppler duplex LE RT DATE OF EXAM: 03/03/2020 10:44 AM COMPARISON: NONE CLINICAL HISTORY: for right foor swelling after trauma. SIDE PERFORMED: right TECHNIQUE: The lower extremity deep venous system is examined utilizing real time linear array sonog kit with graded compression, doppler sonography and color-flow sonography. VESSELS IMAGED: External Iliac Vein (EIV) Common Femoral Vein Deep Femoral Vein Greater Saphenous Vein * Femoral Vein Popliteal Vein Small Saphenous Vein * Proximal Calf Veins (* superficial vessels) Right Leg: Negative for DVT IMPRESSION: Negative
--- NOTE | 2020-03-03 11:31 | P.ARTDOP ---
Arterial Doppler Bilateral radial artery studies. Colon Reason for study: Preop coronary bypass Date of study: 02/27/2020 On Doppler assessment we find no significant right to left or segmental pressure gradients. On digital plethysmography with radial artery compression we find no significant pressure changes on the right however the left changes by 43 mmHg. The right ranges from 3.3 x 3.1 proximally to 2.6 x 2.5 proximally to 2.5 x 2.3 distally. The left is 3.4 x 3.1 mm proximally, 2.5 x 3.0 mm mid and 2.7 x 2.8 cm. Impression: The right radial is usable. The left is of suitable size but pressure gradient is high enough to preclude use of the left. Clinical correlation recommended.
[2020-03-03] MEDS: NITROFURANTOIN MONOHYD/M-CRYST 100 MG CAP PO SCH ×2 (11:57→19:54)
--- NOTE | 2020-03-03 12:08 | P.ARTDOP ---
Arterial Doppler LOWER EXTREMITY ARTERIAL DOPPLER: DATE OF SERVICE: 02/26/2020 Reason for study: Preop CABG. Doppler waveforms: Multiphasic bilaterally throughout. Pulse volume recording: []. Pressure gradients: None. Ankle-brachial indices: Greater than 1 bilaterally. Toe brachial indices: [] on the right, [] on the left Impression: Normal study.
--- NOTE | 2020-03-03 12:21 | P.VSCSTY ---
Greater Saphenous Vein Mapping This is bilateral lower extremity greater saphenous vein mapping. Date of service: 02/25/2020 Vein quality and ultrasound appearance: We see no intraluminal thrombus or wall changes. Vein size groin right : 6.9 x 7.3 groin left: 5.4 x 5.0 High thigh right: 5.8 x 5.4 high thigh left: 4.7 x 4.1 Mid thigh right: 3.4 x 3.2 mid thigh left: 3.4 x 4.0 Above-knee right: 3.7 x 3.5 above- knee left: 2.9 x 2.9 Below knee right: 2.5 x 2.0 below-knee left: 3.2 x 2.8 Mid calf right: 2.0 x 1.8 mid calf left: 2.7 x 2.5 Ankle right: [] ankle left: 2.3 x 2.1 Impression: Usable bilateral greater saphenous vein..
--- NOTE | 2020-03-03 12:53 | P.PN ---
Subjective Progress Note Date: 03/03/20 Principal diagnosis: Acute non-ST elevation myocardial infarction, triple-vessel coronary artery disease The patient is seen today 03/03/2020 in follow-up on the selective care unit. She is currently sitting up in a chair at the bedside. Awake and alert in no acute distress. Currently maintaining good O2 sat aeration in the 90s on room air. She's been afebrile. Hemodynamically stable. Urine culture positive for Klebsiella oxytoca. White count 8.2. Hemoglobin 11.9. Blood glucose 133. She's been initiated on ceftriaxone. The plan is for cardiac revascularization and mitral valve repair, tricuspid valve repair, possible left ventricle aneurysm repair tomorrow. She has been educated regarding use the incentive spirometer and cough and deep breathing exercises. Objective - Vital Signs Vital signs: Vital Signs Temp 96.9 F L 03/03/20 11:33 Pulse 74 03/03/20 11:33 Resp 17 03/03/20 03:59 BP 93/55 03/03/20 11:33 Pulse Ox 94 L 03/03/20 11:33 Intake & Output 03/02/20 03/03/20 03/03/20 18:59 06:59 18:59 Intake Total 970 Output Total 400 Balance 970 -400 Weight 53 kg Intake: Intake, IV Titration 250 Amount Heparin Sod,Pork in 0.45% 250 NaCl 25,000 unit In 0.45 % NaCl 1 250ml.bag @ 12 UNITS/KG/HR 6.858 mls/hr IV .Q24H [facility] Rx#: [id number] Oral 720 Output: Urine 400 Other: Voiding Method Diaper Diaper Bedside Commode Incontinent # Voids 2 1 # Bowel Movements 1 1 - Exam GENERAL EXAM: Alert, pleasant 69-year-old female patient, on room air, active, comfortable in no apparent distress. HEAD: Normocephalic. EYES: Normal reaction of pupils, equal size. NOSE: Clear with pink turbinates. THROAT: No erythema or exudates. NECK: No masses, no JVD. CHEST: No chest wall deformity. LUNGS: Equal air entry with faint crackles in the posterior bases left greater than right CVS: S1 and S2 normal with no audible murmur, regular rhythm. ABDOMEN: No hepatosplenomegaly, normal bowel sounds, no guarding or rigidity. SPINE: No scoliosis or deformity SKIN: No rashes CENTRAL NERVOUS SYSTEM: No focal deficits, tone is normal in all 4 extremities. EXTREMITIES: There is no peripheral edema. No clubbing, no cyanosis. Periph eral pulses are intact. - Labs CBC & Chem 7: 03/03/20 06:04 03/01/20 04:04 Labs: Abnormal Lab Results - Last 24 Hours (Table) 03/03/20 03/03/20 03/03/20 Range/Units 06:04 06:04 06:04 RBC 3.59 L (3.80-5.40) m/uL MCV 101.1 H (80.0-100.0) fL Lymphocytes # 0.5 L (1.0-4.8) k/uL APTT 53.5 H (22.0-30.0) sec POC Glucose (mg/dL) (75-99) mg/dL Crossmatch See Detail 03/03/20 Range/Units 07:45 RBC (3.80-5.40) m/uL MCV (80.0-100.0) fL Lymphocytes # (1.0-4.8) k/uL APTT (22.0-30.0) sec POC Glucose (mg/dL) 133 H (75-99) mg/dL Crossmatch Microbiology - Last 24 Hours (Table) 03/01/20 09:40 Urine Culture - Final Urine,Voided Klebsiella oxytoca Assessment and Plan Assessment: 1 acute non-ST segment elevation myocardial infarction, troponin peaked at 1.8, currently free of any chest pain and the patient continues to be on IV heparin. The patient is fairly of any chest pain for now. The patient is awaiting cardiac surgery which would be a combination of bypass and valve replacement. 2 triple-vessel coronary artery disease with complete occlusion of the mid LAD based on cardiac catheterization. Failed angioplasty and stenting 3 acute systolic heart failure which is of a new onset and there is a significant drop in the patient's LV ejection fraction which is down to 25-30%. The YNES also confirmed presence of significant valvular heart disease with moder ate to severe mitral regurgitation, severe tricuspid regurgitation, severe pulmonary hypertension, biatrial enlargement, biventricular dilatation and there was no evidence of any clotting in the left atrial appendage. Overall, the patient's CHF is well optimized and the patient is currently on oral Lasix. 4 acute hypoxic respiratory failure secondary to above, improving, and the patient is on 2 L of oxygen by nasal cannula 5 bilateral pleural effusion most likely secondary to CHF as the patient also has some interstitial edema, and the chest x-rays showing small bilateral pleural effusion and improving and the right lower lobe pulmonary infiltrates., Improving 6 nonspecific mediastinal lymph nodes, unchanged compared to CAT scan of the chest from 2012 7 sarcoidosis currently inactive in stable 8 history of ankylosing spondylitis 9 history of psoriatic arthritis 10 questionable history of left vocal cord paralysis, no stridor at this point in time and furthermore a bronchoscopy was done for upper airway inspection and the upper airway examination was essentially within normal limits and did not identify any abnormalities in the vocal cord function. 11 mild intermittent bronchial asthma 12 multiple drug ALLERGIES Plan The patient was seen and evaluated by Dr. Salvador She is again encouraged regarding the use of the incentive spirometer Plan is for coronary revascularization, mitral and tricuspid repair, possible left ventricular aneurysm repair Will follow-up in the immediate postoperative period We'll continue to follow and make further instructions based on her clinical status I, the cosigning physician, performed a history & physical examination of the patient. Lungs sounds with faint crackles in the posterior bases left greater than right. Maintaining good O2 saturations in the 90s on room air. I discussed the assessment and plan of care with my nurse practitioner, Sharon Nguyen. I attest to the above note as dictated by her.
[2020-03-03 21:04] LABS: Basophils # (A) 0.1 k/uL (0-0.2); Basophils % (A) 1 %; Eosinophils # (A) 0.1 k/uL (0-0.7); Eosinophils % (A) 1 %; HCT 39.1 % (34.0-46.0); HGB 12.3 gm/dL (11.4-16.0); Lymphocytes # (A) 0.4 k/uL (1.0-4.8); Lymphocytes % (A) 5 %; MCH 31.9 pg (25.0-35.0); MCHC 31.4 g/dL (31.0-37.0); MCV 101.6 fL (80.0-100.0); Macrocytosis Slight; Mean Platelet Volume 8.4; Monocytes # (A) 0.8 k/uL (0-1.0); Monocytes % (A) 9 %; Neutrophils # (A) 7.9 k/uL (1.3-7.7); Neutrophils % (A) 83 %; Platelet Count 185 k/uL (150-450); RBC 3.84 m/uL (3.80-5.40); RDW 13.7 % (11.5-15.5); WBC 9.5 k/uL (3.8-10.6)
--- NOTE | 2020-03-03 21:33 | P.PN ---
Subjective This is a pleasant 69 years old female with past medical history of asthma, back pain status post back fusion surgery, psoriasis, Pham's esophagus, degenerative disc disease, sarcoidosis, rheumatoid arthritis, paralyzed left vocal cord. She is a patient of Dr. Fall as her primary doctor. She presents because of dyspnea on and off of 2 days' duration thought this due to ALLERGIC reaction with normal respiratory solution she came to the hospital and found to have CHF. She denies chest pain, no coughing, no abdominal pain, no change in her bowel habits. No fever This morning patient is fully awake and alert, she is not in distress and she is able to smile. Blood pressure on the low side 91/63 this morning, she is saturating 93% on 4 L oxygen, heart rate is 87 and patient is afebrile. Chest x-ray: CHF. CT of the chest with IV contrast: Bilateral pleural effusion and a large anterior mediastinal lymph nodes 1.5 cm and interstitial edema, no pulmonary embolism. EKG showing slightly elevated ST in the anteroapical and miguel-septal leads . 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 No problem regarding her urine or bowel. No fever. Rest of vitals are stable blood pressure on the low normal systolic and this morning is 90/57, Patient remains on heparin drip and intravenous Lasix twice a day of, also she is on aspirin and metoprolol. Labs including CBC and BMP are stable. Occult blood in stool is negative and hemoglobin is stable Her last ejection fraction was about 25-30% and cardiology team are planning to do YNES today, she is undergoing workup for possible bypass surgery. Surgical team was consulted 02/27/2020 Patient is clinically is the same. No chest pain or dyspnea. Blood pressure 93/60, heart rate 57, patient is afebrile. However she still have active problems as shows in the YNES done yesterday which showed moderate to severe mitral regurgitation, severe tricuspid regurgitation, severe pulmonary hypertension, also LV ejection fraction as low as 30% with apical hypokinesia. Patient in the meantime remains on heparin drip and IV Lasix while still undergoing workup for possible bypass surgery. Surgery team already on the case 02/28/2020 Patient remains in the ICU with no chest pain or shortness of breath. Hemodynamically stable. Today she underwent bronchoscopy for evaluation of vocal cords which were un remarkable with no paralysis and no subglottic stenosis Her labs are stable She remains on heparin drip, oral Lasix 20 mg twice daily, digoxin, lisinopril 2.5 mg and metoprolol 12.5 mg and Aldactone 02/29/2020 Patient is resting comfortably in the ICU, no chest pain or dyspnea. Chest bronchoscopy yesterday which shows normal vocal cords with no subglottic stenosis. Vitals are stable, slightly bradycardic Labs including CBC and BMP are unremarkable She remains on heparin drip and oral Lasix, also she is on metoprolol and digoxin and aspirin Planned for cardiac bypass surgery by this coming 03/01/2020 Patient lying in bed comfortable, no new complaints. Patient is going to have surgery for her mitral valve and tricuspid valve disease as well as bypass surgery for coronary arteries on this coming . She is clinically stable. Vitals stable. Labs noted 03/02/2020 Patient is awake and alert, she is comfortable on the select unit today. She came from intensive care unit yesterday. She was complaining of from pain in her right foot this morning started from yesterday, she thought this could be due to her transfer and she hit her foot, we'll check x-ray blood pressure 107/52. She still on heparin drip, oral Lasix and aspirin. patient and her heart surgery later on this week. 03/03/2020 Patient is awake, no chest pain or dyspnea however she has pain and swelling in her right foot after she injured her foot during the transport to the floor. x- rays: No fracture. We will do ultrasound of the soft tissues as patient is on heparin drip to rule out hematoma. Her CBC is unremarkable this morning. Her vitals are stable. It also should UTI secondary to Klebsiella, which is sensitive to Rocephin and Levaquin but resistant to cefazolin, also patient is on multiple medications ALLERGY. However patient is on cefazolin already, we will start the patient on ceftriaxone with close monitoring. however bed side RN got concerned about given ceftriaxone given pt allergy , so ID team were consulted , pt was stated on nitrofurontin but i do not this is enough treatment for pt with fever going for major surgery She is planned for bypass surgery and mitral and tricuspid fall for repair tomorrow. Objective - Vital Signs Vital signs: Vital Signs Temp 97.3 F L 03/03/20 07:38 Pulse 84 03/03/20 07:38 Resp 17 03/03/20 03:59 BP 99/54 03/03/20 07:38 Pulse Ox 95 03/03/20 07:38 Intake & Output 03/02/20 03/03/20 03/03/20 18:59 06:59 18:59 Intake Total 970 Output Total 400 Balance 970 -400 Weight 53 kg Intake: Intake, IV Titration 250 Amount Heparin Sod,Pork in 0.45% 250 NaCl 25,000 unit In 0.45 % NaCl 1 250ml.bag @ 12 UNITS/KG/HR 6.858 mls/hr IV .Q24H CARLEE Rx#: [id number] Oral 720 Output: Urine 400 Other: Voiding Method Diaper Diaper # Voids 2 1 # Bowel Movements 1 1 - Exam GENERAL: The patient is alert and oriented x3, not in any acute distress. Well developed, well nourished. HEENT: Pupils are round and equally reacting to light. EOMI. No scleral icterus. No conjunctival pallor. Normocephalic, atraumatic. No pharyngeal erythema. No thyromegaly. CARDIOVASCULAR: S1 and S2 present. No murmurs, rubs, or gallops. PULMONARY: Chest is clear to auscultation, no wheezing or crackles. -ABDOMEN: Soft, nontender, nondistended, normoactive bowel sounds. No palpable organomegaly. Cheung catheter in place with clear urine MUSCULOSKELETAL: No joint swelling or deformity. EXTREMITIES: No cyanosis, clubbing, or pedal edema. NEUROLOGICAL: Gross neurological examination did not reveal any focal deficits. SKIN: No rashes. no petechiae. - Labs CBC & Chem 7: 03/03/20 20:31 03/01/20 04:04 Labs: Abnormal Lab Results - Last 24 Hours (Table) 03/03/20 03/03/20 03/03/20 Range/Units 06:04 06:04 07:45 RBC 3.59 L (3.80-5.40) m/uL MCV 101.1 H (80.0-100.0) fL Lymphocytes # 0.5 L (1.0-4.8) k/uL APTT 53.5 H (22.0-30.0) sec POC Glucose (mg/dL) 133 H (75-99) mg/dL Microbiology - Last 24 Hours (Table) 03/01/20 09:40 Urine Culture - Final Urine,Voided Klebsiella oxytoca Assessment and Plan Assessment: Non-STEMI secondary to Acute coronary artery syndrome with triple-vessel disease, totally occluded mid LAD, critical stenosis in the left circumflex and diagonal branch of the RCA Moderate to severe mitral regurgitation, severe tricuspid regurgitation and severe pulmonary hypertension Acute systolic CHF with bilateral pleural effusion Enlarged mediastinal lymph nodes 1.5 cm Acute urinary tract infection with Klebsiella right foot swelling after trauma History of asthma, not an active issue Psoriasis and psoriatic arthritis Pham's esophagus chronic back pain status post back fusion surgery 3 Degenerative disc disease Sarcoidosis Rheumatoid arthritis Paralyzed left vocal cord Plan: This is a pleasant 69 years old female who presents with ACS and CHF. Continue with aspirin and heparin drip. Cardiology and pulmonary/critical care consult. Patient failed recanalization by cardiac cath and his been evaluated for possible bypass surgery and aortic valve repair/replacement. cardiothoracic surgery has been consulted , plan for surgery on 03/04. Continue with antibiotic for UTI, consult ID team soft t. US for right foot to rule out hematoma Labs and medication were reviewed.. Continue same treatment. Continue with symptomatic treatment. Resume home medication. Monitor lytes and vitals. DVT and GI prophylaxis. Further recommendations of the clinical course of the patient DVT prophylaxis: heparin GI Prophylaxis: Pepcid Prognosis is guarded
[2020-03-03] MEDS: AZTREONAM 1 GM in SODIUM CHLORIDE 0.9% 50 ML IVPB SCH (22:16)
[2020-03-04] MEDS ORDERED: INSULIN REGULAR 100 UNIT in SODIUM CHLORIDE 0.9% 100 ML IV SCH ×2 (05:00→16:33)
[2020-03-04] MEDS ORDERED: VANCOMYCIN 1,000 MG in SODIUM CHLORIDE 0.9% IRRIGATIO 1,000 ML IRRIGATION ONE (05:00)
[2020-03-04] MEDS ORDERED: ALBUMIN HUMAN 5% 500 ML in EMPTY BAG 1 BAG IVPB ONE ×6 (05:00)
[2020-03-04] MEDS ORDERED: PHENYLEPHRINE 40 MG in SODIUM CHLORIDE 0.9% 250 ML IV ONE (05:00)
[2020-03-04] MEDS ORDERED: MAGNESIUM SULFATE SYG 4.06 MEQ/ML SYRINGE IV ONE (05:00)
[2020-03-04] MEDS ORDERED: HEPARIN SODIUM 1,000 UN/ML (10ML VL) IV ONE (05:00)
[2020-03-04] MEDS ORDERED: CLEVIDIPINE BUTYRATE 25 MG in EMPTY BAG 1 BAG IV SCH (05:00)
[2020-03-04] MEDS ORDERED: TRANEXAMIC ACID 2,000 MG in SODIUM CHLORIDE 0.9% 80 ML IV ONE (05:00)
[2020-03-04] MEDS ORDERED: CHLORHEXIDINE GLUCONATE 15 ML CUP MUCOUS MEM ONE (05:00)
[2020-03-04] MEDS ORDERED: PROPOFOL 1,000 MG in EMPTY BAG 1 BAG IV PRN (05:00)
[2020-03-04] MEDS ORDERED: LACTATED RINGERS 1,000 ML IV SCH (05:00)
[2020-03-04] MEDS ORDERED: NOREPINEPHRINE 4 MG in SODIUM CHLORIDE 0.9% 250 ML IV SCH (05:00)
[2020-03-04] MEDS ORDERED: ASPIRIN 325 MG TAB PO ONE (05:00)
[2020-03-04] MEDS ORDERED: HEPARIN SODIUM,PORCINE 5,000 UNIT in SODIUM CHLORIDE 0.9% 500 ML 500 ML IV ONE (05:00)
[2020-03-04] MEDS ORDERED: PHENYLEPHRINE 10 MG/ML VIAL IV ONE (05:00)
[2020-03-04] MEDS ORDERED: DILTIAZEM 125 MG in SODIUM CHLORIDE 0.9% 100 ML IV SCH (05:00)
[2020-03-04] MEDS ORDERED: ceFAZolin 1,000 MG in SODIUM CHLORIDE 0.9% IRRIGATIO 1,000 ML IRRIGATION ONE (05:00)
[2020-03-04] MEDS ORDERED: PROTAMINE SULFATE 10 MG/ML 25 ML VIAL IV ONE ×2 (05:00→07:50)
[2020-03-04] MEDS ORDERED: DEXMEDETOMIDINE/0.9% NACL(PMX) 400 MCG in EMPTY BAG 1 BAG IV SCH (05:00)
[2020-03-04] MEDS ORDERED: NITROGLYCERIN-D5W PMX 50 MG in DEXTROSE/WATER 1 250ML.BAG IV SCH ×2 (05:00→16:33)
[2020-03-04] MEDS ORDERED: ceFAZolin 2 GM in SODIUM CHLORIDE 0.9% 30 ML IVPB ONE (05:00)
[2020-03-04] MEDS ORDERED: DEXTROSE 5% IN WATER 1,000 ML with POTASSIUM CHLORIDE 25 MEQ, SODIUM CHLORIDE 2.5MEQ/ML... IV SCH ×6 (05:00)
[2020-03-04] MEDS ORDERED: SODIUM BICARB 8.4% 50 ML SYR (1 MEQ/ML) IV ONE (05:00)
[2020-03-04] MEDS ORDERED: MANNITOL 25% 12.5 GM/50 ML VIAL IV ONE ×2 (05:00)
[2020-03-04] MEDS ORDERED: GENTAMICIN 260 MG in SODIUM CHLORIDE 0.9% 100 ML IVPB ONE (05:00)
[2020-03-04] MEDS ORDERED: PROTAMINE SULFATE 250 MG in EMPTY BAG 1 BAG IV ONE (05:00)
[2020-03-04] MEDS ORDERED: METOPROLOL TARTRATE 12.5 MG TAB PO ONE (05:00)
[2020-03-04] MEDS ORDERED: ceFAZolin 2,000 MG in SODIUM CHLORIDE 0.9% 30 ML IVPB ONE (05:00)
[2020-03-04] MEDS ORDERED: DEXTROSE 5% IN WATER 1,000 ML with POTASSIUM CHLORIDE 110 MEQ, MAGNESIUM SULFATE 16 MEQ... IV SCH ×5 (05:00)
[2020-03-04] MEDS ORDERED: PAPAVERINE 360 MG in SODIUM CHLORIDE 0.9% 90 ML IV ONE (05:00)
[2020-03-04] MEDS ORDERED: VANCOMYCIN 750 MG in SODIUM CHLORIDE 0.9% 250 ML IVPB ONE (05:00)
[2020-03-04] MEDS ORDERED: NITROGLYCERIN-D5W PMX 25 MG/250 ML BTL IV ONE (05:00)
[2020-03-04] MEDS ORDERED: ALBUMIN HUMAN 25% 50 ML in EMPTY BAG 1 BAG IVPB ONE (05:00)
[2020-03-04] MEDS ORDERED: ATORVASTATIN 10 MG TAB PO ONE (05:00)
[2020-03-04] MEDS ORDERED: CALCIUM CHLORIDE 100 MG/ML 10 ML SYRINGE IVP ONE (05:00)
[2020-03-04] MEDS: HEPARIN SOD,PORK IN 0.45% NACL 25,000 UNIT in 0.45% NACL 1 250ML.BAG IV SCH (06:04)
[2020-03-04] MEDS ORDERED: LACTATED RINGERS 1,000 ML IV ONE (06:50)
[2020-03-04] MEDS ORDERED: METOPROLOL TARTRATE 50 MG TAB PO ONE ×2 (06:55→06:59)
--- NOTE | 2020-03-04 07:01 | P.CONS ---
History of Present Illness - Reason for Consult Consult date: 03/03/20 Klebsiella urinary tract infection and multiple antibiotic ALLERGIES Requesting physician: Chester E Sheet - Chief Complaint Urinary burning x few days - History of Present Illness Patient is a 69-year-old female presenting to the hospital more than a week ago with chief complaints of acute shortness of breath patient symptoms started suddenly early that morning before she presented to the hospital patient subsequently has been diagnosed with acute [place], the patient did have a cardiac cath with evidence of multivessel disease and subsequently did have a YNES which is evidence of severe MR and the patient is currently being worked up for coronary bypass grafting and mitral valve repair, patient did have a Chenug catheter during this admission which has been subsequently discontinued and the patient was complaining of urinary burning and some suprapubic discomfort over the last 2 days patient did have a UA obtained on 03/01/2020 which was positive his culture has been finalized with Klebsiella patient did have multiple antibiotics ALLERGIES she was initially started on Macrobid that subsequently has been switched over to Azactam and infectious disease has been consulted for further management of antibiotic therapy, the patient currently denies having any fever or any chills, patient breathing has improved denies having any chest pain or cough no nausea no vomiting no abdominal pain no pain in the flank area and no diarrhea Review of Systems Positive point has been mentioned in the HPI rest of the systems are negative Past Medical History Past Medical History: Asthma Additional Past Medical History / Comment(s): back pain. Psoriasis. Pham syndrome. Degenerate disc disease. Psoriatic Arthritis. Spondilitis Ankylosis. Sarcoidosis. RA. Paralyzed left vocal cord. History of Any Multi-Drug Resistant Organisms: None Reported Past Surgical History: Back Surgery, Breast Surgery, Hysterectomy Additional Past Surgical History / Comment(s): Back fusion.epidural injections. Hiatal hernia repair. Lumps removed from bilateral breast. Bilateral varicose bein removal. Colonoscopy. Past Anesthesia/Blood Transfusion Reactions: Postoperative Nausea & Vomiting (PONV) Past Psychological History: No Psychological Hx Reported Smoking Status: Never smoker Past Alcohol Use History: None Reported Past Drug Use History: None Reported - Past Family History Mother Family Medical History: Renal Disease Father Family Medical History: Diabetes Mellitus Medications and Allergies Home Medications Medication Instructions Recorded Confirmed Type Diazepam [Valium] 10 mg PO Q8H PRN 05/15/16 02/24/20 History HYDROcodone/APAP 7.5-325MG [[place] 1 - 2 tab PO Q6H PRN 05/15/16 02/24/20 History 7.5-325] diphenhydrAMINE [Benadryl] 25 mg PO Q4H PRN 02/24/20 02/24/20 History Allergies Allergy/AdvReac Type Severity Reaction Status Date / Time egg Allergy Severe Shortness Verified 02/27/20 08:58 of Breath acetaminophen Allergy Unknown Verified 02/24/20 18:48 [From Darvocet-N] adhesive tape Allergy Unknown Verified 02/24/20 18:48 ampicillin Allergy Unknown Verified 02/24/20 18:48 cefaclor [From Ceclor] Allergy Unknown Verified 02/24/20 18:48 cefuroxime axetil Allergy Unknown Verified 02/24/20 18:48 [From Ceftin] ciprofloxacin [From Cipro] Allergy Unknown Verified 02/24/20 18:48 ciprofloxacin HCl Allergy Unknown Verified 02/24/20 18:48 [From Cipro] clarithromycin [From Biaxin] Allergy Unknown Verified 02/24/20 18:48 codeine phosphate Allergy Unknown Verified 02/24/20 18:48 [From Tylenol-Codeine #3] erythromycin base Allergy Unknown Verified 02/24/20 18:48 etodolac [From Lodine] Allergy Unknown Verified 02/24/20 18:48 fluticasone propionate Allergy Unknown Verified 02/24/20 18:48 [From Flovent Diskus] hydroxychloroquine sulfate Allergy Unknown Verified 02/24/20 18:48 [From Plaquenil] ibuprofen [From Motrin] Allergy Unknown Verified 02/24/20 18:48 indapamide [From Lozol] Allergy Unknown Verified 02/24/20 18:48 infliximab [From Remicade] Allergy Unknown Verified 02/24/20 18:48 Influenza Virus Vaccines Allergy Unknown Verified 02/24/20 18:48 ketorolac tromethamine Allergy Unknown Verified 02/24/20 18:48 [From Toradol] lanolin Allergy Unknown Verified 02/24/20 18:48 lansoprazole [From Prevacid] Allergy Unknown Verified 02/24/20 18:48 levofloxacin [From Levaquin] Allergy Unknown Verified 02/24/20 18:48 loracarbef [From Lorabid] Allergy Unknown Verified 02/24/20 18:48 lorazepam [From Ativan] Allergy Unknown Verified 02/24/20 18:48 methotrexate Allergy Unknown Verified 02/24/20 18:48 montelukast sodium Allergy Unknown Verified 02/24/20 18:48 [From Singulair] naproxen [From Naprosyn] Allergy Unknown Verified 02/24/20 18:48 paroxetine HCl [From Paxil] Allergy Unknown Verified 02/24/20 18:48 Penicillins Allergy Unknown Verified 02/24/20 18:48 pentazocine lactate Allergy Unknown Verified 02/24/20 18:48 [From Talwin] phenol [From Chloraseptic] Allergy Unknown Verified 02/24/20 18:48 pirbuterol acetate Allergy Unknown Verified 02/24/20 18:48 [From [employer]] pneumococcal vaccine Allergy Unknown Verified 02/24/20 18:48 pregabalin [From Lyrica] Allergy Unknown Verified 02/24/20 18:48 propoxyphene napsylate Allergy Unknown Verified 02/24/20 18:48 [From Darvocet-N] red dye Allergy Dyspnea Verified 02/24/20 18:48 rofecoxib [From Vioxx] Allergy Unknown Verified 02/24/20 18:48 salmeterol xinafoate Allergy Unknown Verified 02/24/20 18:48 [From Serevent] sodium phenolate Allergy Unknown Verified 02/24/20 18:48 [From Chloraseptic] Sulfa (Sulfonamide Allergy Unknown Verified 02/24/20 18:48 Antibiotics) sulfamethoxazole Allergy Unknown Verified 02/24/20 18:48 [From Bactrim] tramadol HCl [From Ultracet] Allergy Unknown Verified 02/24/20 18:48 trimethoprim [From Bactrim] Allergy Unknown Verified 02/24/20 18:48 yellow dye Allergy Dyspnea Verified 02/24/20 18:48 Physical Exam Vitals: Vital Signs Temp Pulse Resp BP Pulse Ox 03/03/20 19:59 100.2 F H 93 18 128/63 97 03/03/20 18:52 101.2 F H 98 105/64 93 L 03/03/20 15:22 99 F 85 95/65 94 L 03/03/20 11:33 96.9 F L 74 93/55 94 L 03/03/20 07:38 97.3 F L 84 99/54 95 03/03/20 03:59 98.8 F 81 17 93/54 93 L 03/02/20 23:50 98.2 F 76 17 100/55 96 Intake and Output 03/03/20 03/03/20 03/04/20 14:59 22:59 06:59 Intake Total 120 120 Output Total 300 Balance -180 120 Intake: Oral 120 120 Output: Urine 300 Other: Voiding Method Bedside Commode Bedside Commode Incontinent Incontinent # Voids 1 1 # Bowel Movements 1 GENERAL DESCRIPTION: An elderly female lying in bed, no distress. No tachypnea o r accessory muscle of respiration use. HEENT: Shows Pallor , no scleral icterus. Oral mucous membrane is dry. No pharyngeal erythema or thrush NECK: Trachea central, no thyromegaly. LUNGS: Unlabored breathing. Decreased breath sounds at the base No wheeze or crackle. HEART: S1, S2, regular rate and rhythm. No loud murmur ABDOMEN: Soft, no tenderness , guarding or rigidity, no organomegaly EXTREMITIES: No edema of feet. SKIN: No rash, no masses palpable. NEUROLOGICAL: The patient is awake, alert, oriented x3, mood and affect normal. Results CBC & Chem 7: 03/03/20 20:31 03/01/20 04:04 Labs: Abnormal Lab Results - Last 24 Hours (Table) 03/03/20 03/03/20 03/03/20 Range/Units 06:04 06:04 06:04 RBC 3.59 L (3.80-5.40) m/uL MCV 101.1 H (80.0-100.0) fL Neutrophils # (1.3-7.7) k/uL Lymphocytes # 0.5 L (1.0-4.8) k/uL APTT 53.5 H (22.0-30.0) sec POC Glucose (mg/dL) (75-99) mg/dL C-Reactive Protein (<10.0) mg/L Crossmatch See Detail 03/03/20 03/03/20 03/03/20 Range/Units 07:45 20:31 20:31 RBC (3.80-5.40) m/uL MCV 101.6 H (80.0-100.0) fL Neutrophils # 7.9 H (1.3-7.7) k/uL Lymphocytes # 0.4 L (1.0-4.8) k/uL APTT (22.0-30.0) sec POC Glucose (mg/dL) 133 H (75-99) mg/dL C-Reactive Protein 147.8 H (<10.0) mg/L Crossmatch Microbiology - Last 24 Hours (Table) 03/01/20 09:40 Urine Culture - Final Urine,Voided Klebsiella oxytoca Assessment and Plan Assessment: 1- patient admitted to the hospital with sudden onset of shortness of breath and this patient has been diagnosed with acute AK and is status post cardiac cath with evidence of multivessel disease currently the patient did have a Cheung catheter during this admission should be subsequently discontinued now with the symptoms of burning urine some suprapubic discomfort positive UA likely symptomatic urinary tract infection 2-Patient with multiple antibiotic ALLERGIES that would limit the number of antibiotic safe to use (1) Urinary tract infection Current Visit: Yes Status: Acute Code(s): N39.0 - URINARY TRACT INFECTION, SITE NOT SPECIFIED SNOMED Code(s): 67096325 (2) Allergy to multiple antibiotics Current Visit: Yes Status: Acute Code(s): Z88.1 - ALLERGY STATUS TO OTHER ANTIBIOTIC AGENTS STATUS SNOMED Code(s): 700815079 Plan: 1-patient has been started on Azactam 1 g every 8 hours to continue 2-repeat a UA and culture We will follow on clinical condition and cultures to further adjust medication if needed Thank you for this consultation will follow this patient with you Time with Patient: Greater than 30
[2020-03-04] MEDS ORDERED: fentaNYL (PF) 50 MCG/ML 2 ML AMP ONE (07:50)
[2020-03-04] MEDS ORDERED: LIDOCAINE 2% SYG (PF) 100 MG/5 ML ONE (07:50)
[2020-03-04] MEDS ORDERED: VECURONIUM 10 MG VIAL IV ONE (07:50)
[2020-03-04] MEDS ORDERED: HEPARIN SODIUM,PORCINE 10,000 UNIT/ML 1 ML VIAL ONE (07:50)
[2020-03-04] MEDS ORDERED: INSULIN REGULAR 100 UNIT/ML VIAL ONE (07:50)
[2020-03-04] MEDS ORDERED: ELECTROLYTE-R (PH 7.4) 1,000 ML IV.SOLN IV ONE (07:50)
[2020-03-04] MEDS ORDERED: MAGNESIUM SULFATE 4 MEQ/ML 10ML VIAL ONE (07:50)
[2020-03-04] MEDS ORDERED: MIDAZOLAM 2 MG/2 ML VIAL ONE (07:50)
[2020-03-04] MEDS ORDERED: NITROGLYCERIN-D5W PMX 50 MG/250 ML BOTTLE IV ONE (07:50)
[2020-03-04] MEDS ORDERED: fentaNYL (PF) 50 MCG/ML 50 ML VIAL ONE (07:50)
[2020-03-04] MEDS ORDERED: SODIUM CHLORIDE 0.9% IRRIG 1,000 ML BTL IRRIGATION ONE (07:50)
[2020-03-04] MEDS ORDERED: SODIUM CHLORIDE 0.9% 250 ML BAG ONE (07:50)
[2020-03-04] MEDS ORDERED: TRANEXAMIC ACID 1,000 MG/10 ML VIAL ONE (07:50)
[2020-03-04] MEDS ORDERED: AZTREONAM 1 GM in SODIUM CHLORIDE 0.9% 50 ML IVPB STA (08:04)
[2020-03-04 08:41] LABS: ABG Base Excess 3.2 mmol/L; ABG Glucose Whole Blood 115 mg/dL (75-99); ABG HCO3 27 mmol/L (21-25); ABG Hematocrit 33 % (34.0-46.0); ABG Ionized Calcium 4.7 mg/dL (4.5-5.3); ABG Lactic Acid Whole Blood 1.3 mmol/L (0.5-1.6); ABG PCO2 38 mmHg (35-45); ABG PH 7.46 (7.35-7.45); ABG Potassium Whole Blood 3.5 mmol/L (3.4-4.5); ABG Sodium Whole Blood 133 mmol/L (135-146); ABG TCO2 28 mmol/L (19-24)
[2020-03-04 10:38] LABS: ABG Base Excess 2.2 mmol/L; ABG Glucose Whole Blood 158 mg/dL (75-99); ABG HCO3 26 mmol/L (21-25); ABG Hematocrit 33 % (34.0-46.0); ABG Ionized Calcium 4.8 mg/dL (4.5-5.3); ABG Lactic Acid Whole Blood 0.7 mmol/L (0.5-1.6); ABG Oxygen Saturation 99.6 % (94-97); ABG PCO2 38 mmHg (35-45); ABG PH 7.45 (7.35-7.45); ABG PO2 175 mmHg (83-108); ABG Potassium Whole Blood 3.9 mmol/L (3.4-4.5); ABG Sodium Whole Blood 133 mmol/L (135-146); ABG TCO2 27 mmol/L (19-24)
[2020-03-04 11:38] LABS: ABG Base Excess -0.4 mmol/L; ABG Glucose Whole Blood 161 mg/dL (75-99); ABG HCO3 22 mmol/L (21-25); ABG Ionized Calcium 4.1 mg/dL (4.5-5.3); ABG Lactic Acid Whole Blood 0.8 mmol/L (0.5-1.6); ABG PCO2 27 mmHg (35-45); ABG PH 7.52 (7.35-7.45); ABG Potassium Whole Blood 3.8 mmol/L (3.4-4.5); ABG Sodium Whole Blood 129 mmol/L (135-146); ABG TCO2 23 mmol/L (19-24)
[2020-03-04 12:01] LABS: Appearance,Urine Cloudy (Clear); Bacteria,Urine Rare /hpf; Bilirubin,Urine Negative (Negative); Blood,Urine Negative (Negative); Color,Urine Yellow; Glucose,Urine (UA) Negative (Negative); Ketones,Urine Negative (Negative); Leukocyte Esterase,Urine Negative (Negative); Mucus,Urine Occasional /hpf; Nitrite,Urine Negative (Negative); PH, Urine 5.5 (5.0-8.0); Protein,Urine 1+ (Negative); RBC,Urine 1 /hpf (0-5); Specific Gravity,Urine 1.021 (1.001-1.035); Squamous Epithelial Cell,Urine <1 /hpf (0-4); WBC,Urine 4 /hpf (0-5)
[2020-03-04 12:09] LABS: ABG Base Excess 1.1 mmol/L; ABG Glucose Whole Blood 249 mg/dL (75-99); ABG HCO3 25 mmol/L (21-25); ABG Ionized Calcium 4.3 mg/dL (4.5-5.3); ABG Lactic Acid Whole Blood 1.1 mmol/L (0.5-1.6); ABG PCO2 38 mmHg (35-45); ABG PH 7.44 (7.35-7.45); ABG PO2 337 mmHg (83-108); ABG Potassium Whole Blood 4.9 mmol/L (3.4-4.5); ABG Sodium Whole Blood 129 mmol/L (135-146); ABG TCO2 27 mmol/L (19-24)
[2020-03-04 12:44] LABS: ABG Glucose Whole Blood 256 mg/dL (75-99); ABG HCO3 26 mmol/L (21-25); ABG Ionized Calcium 4.3 mg/dL (4.5-5.3); ABG Lactic Acid Whole Blood 1.7 mmol/L (0.5-1.6); ABG PCO2 40 mmHg (35-45); ABG PH 7.42 (7.35-7.45); ABG PO2 331 mmHg (83-108); ABG Potassium Whole Blood 4.2 mmol/L (3.4-4.5); ABG Sodium Whole Blood 130 mmol/L (135-146); ABG TCO2 27 mmol/L (19-24)
[2020-03-04 12:52] LABS: ABG PO2 >420 mmHg (83-108)
[2020-03-04 12:53] LABS: ABG Hematocrit 24 % (34.0-46.0); ABG PO2 >420 mmHg (83-108)
[2020-03-04 12:55] LABS: ABG Hematocrit 22 % (34.0-46.0)
[2020-03-04 12:56] LABS: ABG Hematocrit 22 % (34.0-46.0)
[2020-03-04 13:18] LABS: ABG Glucose Whole Blood 219 mg/dL (75-99); ABG HCO3 26 mmol/L (21-25); ABG Ionized Calcium 4.4 mg/dL (4.5-5.3); ABG PCO2 45 mmHg (35-45); ABG PH 7.36 (7.35-7.45); ABG PO2 344 mmHg (83-108); ABG Potassium Whole Blood 3.9 mmol/L (3.4-4.5); ABG Sodium Whole Blood 131 mmol/L (135-146); ABG TCO2 27 mmol/L (19-24)
[2020-03-04 14:02] LABS: ABG Base Excess -0.4 mmol/L; ABG Glucose Whole Blood 223 mg/dL (75-99); ABG HCO3 24 mmol/L (21-25); ABG Ionized Calcium 4.4 mg/dL (4.5-5.3); ABG PCO2 39 mmHg (35-45); ABG PO2 307 mmHg (83-108); ABG Potassium Whole Blood 3.9 mmol/L (3.4-4.5); ABG Sodium Whole Blood 130 mmol/L (135-146); ABG TCO2 26 mmol/L (19-24)
[2020-03-04 14:35] LABS: ABG Base Excess -1.3 mmol/L; ABG Glucose Whole Blood 197 mg/dL (75-99); ABG HCO3 24 mmol/L (21-25); ABG Ionized Calcium 4.5 mg/dL (4.5-5.3); ABG PCO2 43 mmHg (35-45); ABG PH 7.36 (7.35-7.45); ABG Potassium Whole Blood 4.3 mmol/L (3.4-4.5); ABG Sodium Whole Blood 131 mmol/L (135-146); ABG TCO2 25 mmol/L (19-24)
--- NOTE | 2020-03-04 14:45 | CDI ---
Documentation Clarification Form Date: 03/04/2020 02:32:27 PM From: Stephenie OzunaVillavicencioROE almonte, CCDS Admit Date: 02/24/2020 09:20:00 PM Patient Name: Sheryl Gomez Visit Number: [id number] Discharge Date: ATTENTION: The Clinical Documentation Specialists (CDI) and [facility] Coding Staff appreciate your assistance in clarifying documentation. Please respond to the clarification below the line at the bottom and electronically sign. The CDI & [facility] Coding staff will review the response and follow-up if needed. Please note: Queries are made part of the Legal Health Record. If you have any questions, please contact the author of this message via ITS. Dr. Rosemarie Smith: Per the 03/03 Medical Management Progress Note: "Also UTI secondary to Klebsiella, which is sensitive to Rocephin, Levaquin but resistant to Cefazolin, patient is on multiple medications." Per the 03/03 Infectious Disease Consult: "...diagnosed with acute [place] and is status post cardiac cath with evidence of multivessel disease, currently the patient did have a Cheung catheter during this admission should be subsequently discontinued now with the symptoms of burning urine some suprapubic discomfort positive UA likely symptomatic urinary tract infection." History/Risk Factors: Multivessel CAD, Pulmonary Hypertension, Rheumatoid arthritis, Mitral & Tricuspid Regurgitation, Ischemic Cardiomyopathy, Mild Intermittent Asthma, Sarcoidosis, Pham's esophagus, Multiple drug allergies including antibiotics. The patient was admitted on 02/23 with a NSTEMI, went to the labor relations analyst emergently, found to have triple vessel disease & is scheduled for a CABG on 03/04. Clinical Indicators: Presented as above. Post heart cath & prior to the patient's open heart surgery, ID has documented the patient has a UTI positive cultures: Klebsiella oxytoca. UA 02/24: cloudy, sp gr >1.050^, 1+ protein, Moderate blood, Small esterase, RBC 181^. UA 03/01: cloudy, trace protein, trace blood, Positive Nitrite, Lg Esterase, WBC 123^. UA: 03/04: cloudy, 1+ protein. Treatment: IV Rocephin (03/03), IV Aztreonam (03/03), IV Cefazolin 03/04, IV Gentamicin ordered 03/04. Patient to OR for CABG 03/04, pending OR report. In your professional opinion, can you please clarify the etiology of the UTI, if known? Cheung catheter UTI not related to catheter Other condition, please specify Unable to determine (Last Revision: December 2017) _Catheter associated urinary tract infection MTDD
[2020-03-04 15:00] VITALS: BMI 19.5
[2020-03-04 15:51] LABS: ABG Base Excess -3.3 mmol/L; ABG Glucose Whole Blood 110 mg/dL (75-99); ABG HCO3 23 mmol/L (21-25); ABG PCO2 46 mmHg (35-45); ABG PH 7.31 (7.35-7.45); ABG PO2 416 mmHg (83-108); ABG Potassium Whole Blood 3.5 mmol/L (3.4-4.5); ABG Sodium Whole Blood 134 mmol/L (135-146); ABG TCO2 24 mmol/L (19-24)
[2020-03-04 15:55] LABS: ABG Hematocrit 21 % (34.0-46.0); ABG Lactic Acid Whole Blood 2.3 mmol/L (0.5-1.6)
[2020-03-04 15:56] LABS: ABG Hematocrit 21 % (34.0-46.0); ABG Lactic Acid Whole Blood 2.7 mmol/L (0.5-1.6)
[2020-03-04 15:57] LABS: ABG Hematocrit 21 % (34.0-46.0); ABG Lactic Acid Whole Blood 2.9 mmol/L (0.5-1.6); ABG PO2 >420 mmHg (83-108)
[2020-03-04 15:58] LABS: ABG Hematocrit 23 % (34.0-46.0); ABG Lactic Acid Whole Blood 3.8 mmol/L (0.5-1.6)
[2020-03-04] MEDS ORDERED: ALBUMIN HUMAN 5% 250 ML IVPB ONE ×2 (16:16→16:30)
[2020-03-04] MEDS ORDERED: hydrALAZINE HCL 20 MG/ML 1 ML VIAL IVP PRN (16:33)
[2020-03-04] MEDS ORDERED: AMIODARONE 360 MG in DEXTROSE 5% IN WATER 200 ML IV PRN ×2 (16:33)
[2020-03-04] MEDS ORDERED: CALCIUM GLUCONATE 2 GM in SODIUM CHLORIDE 0.9% 100 ML IVPB PRN (16:33)
[2020-03-04] MEDS: SODIUM CHLORIDE 0.9% 50 ML with VASOPRESSIN 20 UNIT IVPB SCH ×2 (16:33)
[2020-03-04] MEDS ORDERED: SODIUM CHLORIDE 0.9% 1,000 ML IV SCH (16:33)
[2020-03-04] MEDS ORDERED: Magnesium Replacement Protocol 1 EACH MISC MISCELLANE PRN (16:33)
[2020-03-04] MEDS ORDERED: Phosphorus Replacement Protoco 1 EACH MISC MISCELLANE PRN (16:33)
[2020-03-04] MEDS ORDERED: METOCLOPRAMIDE 5 MG/ML 2 ML VIAL IVP PRN (16:33)
[2020-03-04] MEDS ORDERED: IPRATROPIUM-ALBUTEROL 3 ML NEB INHALATION PRN (16:33)
[2020-03-04] MEDS ORDERED: Potassium Replacement Protocol 1 EACH MISC MISCELLANE PRN (16:33)
[2020-03-04] MEDS ORDERED: ONDANSETRON 4 MG/2 ML VIAL IVP PRN (16:33)
[2020-03-04] MEDS ORDERED: DEXTROSE 5% IN WATER 100 ML with AMIODARONE 150 MG IV PRN (16:33)
[2020-03-04] MEDS ORDERED: AMIODARONE 300 MG in DEXTROSE 5% IN WATER 250 ML IV PRN ×2 (16:33)
[2020-03-04] MEDS ORDERED: BENZOCAINE/MENTHOL LOZENG 1 EACH LOZENGE MUCOUS MEM PRN (16:33)
[2020-03-04] MEDS ORDERED: EPINEPHrine 10 ML SYRINGE (0.1 MG/ML) ONE (16:34)
[2020-03-04] MEDS ORDERED: CALCIUM GLUCONATE 1 GM in SODIUM CHLORIDE 0.9% 100 ML IVPB ONE (16:45)
[2020-03-04 16:46] LABS: Glucose,Whole Blood 80 mg/dL (75-99)
[2020-03-04 16:48] LABS: Basophils % (A) 0 %; Eosinophils # (A) 0.1 k/uL (0-0.7); Eosinophils % (A) 0 %; HCT 22.6 % (34.0-46.0); Hypochromasia Slight; Lymphocytes # (A) 0.8 k/uL (1.0-4.8); Lymphocytes % (A) 4 %; MCH 32.7 pg (25.0-35.0); MCHC 31.9 g/dL (31.0-37.0); MCV 102.7 fL (80.0-100.0); Macrocytosis Slight; Mean Platelet Volume 10.5; Monocytes # (A) 1.7 k/uL (0-1.0); Monocytes % (A) 9 %; Neutrophils # (A) 16.7 k/uL (1.3-7.7); Neutrophils % (A) 85 %; Platelet Count 140 k/uL (150-450); WBC 19.6 k/uL (3.8-10.6)
[2020-03-04 16:49] LABS: ABG Base Excess -2.3 mmol/L; ABG HCO3 24 mmol/L (21-25); ABG PCO2 47 mmHg (35-45); ABG PH 7.32 (7.35-7.45); ABG PO2 353 mmHg (83-108); ABG TCO2 25 mmol/L (19-24); Allen Test Performed? Yes
[2020-03-04 16:56] LABS: HGB 7.2 gm/dL (11.4-16.0)
--- NOTE | 2020-03-04 16:57 | XR ---
EXAMINATION TYPE: XR chest 1V portable DATE OF EXAM: 03/04/2020 HISTORY: Post Op CABG COMPARISON: NONE TECHNIQUE: Single view of the chest is submitted. FINDINGS: Endotracheal tube, NG tube, SG catheter, mediastinal drains and chest tubes are appropriately placed. Post operative changes of CABG. No sizeable pneumothorax. Scattered Pleural-parenchymal opacities may reflect atelectasis. The heart is not enlarged. IMPRESSION: 1. Post operative changes of CABG.
[2020-03-04 16:59] LABS: INR 1.3 (<1.2); Partial Thromboplastin Time 51.8 sec (22.0-30.0); Prothrombin Time 12.9 sec (9.0-12.0)
[2020-03-04] MEDS: AZTREONAM 1 GM in SODIUM CHLORIDE 0.9% 50 ML IVPB SCH ×3 (17:05→20:52)
[2020-03-04] MEDS: NITROFURANTOIN MONOHYD/M-CRYST 100 MG CAP PO SCH (17:06)
[2020-03-04] MEDS: NOREPINEPHRINE 4 MG in SODIUM CHLORIDE 0.9% 250 ML IV SCH ×2 (17:07→22:24)
[2020-03-04 17:25] LABS: ABG Base Excess -1.5 mmol/L; ABG HCO3 24 mmol/L (21-25); ABG PCO2 44 mmHg (35-45); ABG PH 7.35 (7.35-7.45); ABG PO2 399 mmHg (83-108); ABG TCO2 26 mmol/L (19-24); Allen Test Performed? Yes
[2020-03-04] MEDS ORDERED: FERROUS SULFATE 325 MG TAB PO SCH (17:30)
[2020-03-04] MEDS ORDERED: ASCORBIC ACID 500 MG TAB PO SCH (17:30)
[2020-03-04] MEDS: ALBUMIN HUMAN 5% 250 ML in EMPTY BAG 1 BAG IVPB PRN ×2 (17:54→17:55)
[2020-03-04 17:57] LABS: ALT 11 U/L (4-34); AST 71 U/L (14-36); African American GFR (CKD) >90 (>60 ml/min/1.73 sqM); Albumin 2.8 g/dL (3.5-5.0); Alkaline Phosphatase 29 U/L (38-126); Anion Gap 9 mmol/L; Blood Urea Nitrogen 13 mg/dL (7-17); Calcium 8.3 mg/dL (8.4-10.2); Carbon Dioxide 23 mmol/L (22-30); Chloride 103 mmol/L (98-107); Glucose 74 mg/dL (74-99); Magnesium 2.8 mg/dL (1.6-2.3); Non-African American GFR(CKD) >90 (>60 ml/min/1.73 sqM); Potassium 4.1 mmol/L (3.5-5.1); Sodium 135 mmol/L (137-145); Total Bilirubin 1.7 mg/dL (0.2-1.3); Total Protein 4.7 g/dL (6.3-8.2)
[2020-03-04 18:13] LABS: Glucose,Whole Blood 91 mg/dL (75-99)
[2020-03-04] MEDS: ACETAMINOPHEN IV (For NPO) 1,000 MG in EMPTY BAG 1 BAG IVPB SCH ×2 (18:17→23:27)
--- NOTE | 2020-03-04 18:20 | P.PN ---
Subjective This is a pleasant 69 years old female with past medical history of asthma, back pain status post back fusion surgery, psoriasis, Pham's esophagus, degenerative disc disease, sarcoidosis, rheumatoid arthritis, paralyzed left vocal cord. She is a patient of Dr. Fall as her primary doctor. She presents because of dyspnea on and off of 2 days' duration thought this due to ALLERGIC reaction with normal respiratory solution she came to the hospital and found to have CHF. She denies chest pain, no coughing, no abdominal pain, no change in her bowel habits. No fever This morning patient is fully awake and alert, she is not in distress and she is able to smile. Blood pressure on the low side 91/63 this morning, she is saturating 93% on 4 L oxygen, heart rate is 87 and patient is afebrile. Chest x-ray: CHF. CT of the chest with IV contrast: Bilateral pleural effusion and a large anterior mediastinal lymph nodes 1.5 cm and interstitial edema, no pulmonary embolism. EKG showing slightly elevated ST in the anteroapical and miguel-septal leads . 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 No problem regarding her urine or bowel. No fever. Rest of vitals are stable blood pressure on the low normal systolic and this morning is 90/57, Patient remains on heparin drip and intravenous Lasix twice a day of, also she is on aspirin and metoprolol. Labs including CBC and BMP are stable. Occult blood in stool is negative and hemoglobin is stable Her last ejection fraction was about 25-30% and cardiology team are planning to do YNES today, she is undergoing workup for possible bypass surgery. Surgical team was consulted 02/27/2020 Patient is clinically is the same. No chest pain or dyspnea. Blood pressure 93/60, heart rate 57, patient is afebrile. However she still have active problems as shows in the YNES done yesterday which showed moderate to severe mitral regurgitation, severe tricuspid regurgitation, severe pulmonary hypertension, also LV ejection fraction as low as 30% with apical hypokinesia. Patient in the meantime remains on heparin drip and IV Lasix while still undergoing workup for possible bypass surgery. Surgery team already on the case 02/28/2020 Patient remains in the ICU with no chest pain or shortness of breath. Hemodynamically stable. Today she underwent bronchoscopy for evaluation of vocal cords which were un remarkable with no paralysis and no subglottic stenosis Her labs are stable She remains on heparin drip, oral Lasix 20 mg twice daily, digoxin, lisinopril 2.5 mg and metoprolol 12.5 mg and Aldactone 02/29/2020 Patient is resting comfortably in the ICU, no chest pain or dyspnea. Chest bronchoscopy yesterday which shows normal vocal cords with no subglottic stenosis. Vitals are stable, slightly bradycardic Labs including CBC and BMP are unremarkable She remains on heparin drip and oral Lasix, also she is on metoprolol and digoxin and aspirin Planned for cardiac bypass surgery by this coming 03/01/2020 Patient lying in bed comfortable, no new complaints. Patient is going to have surgery for her mitral valve and tricuspid valve disease as well as bypass surgery for coronary arteries on this coming . She is clinically stable. Vitals stable. Labs noted 03/02/2020 Patient is awake and alert, she is comfortable on the select unit today. She came from intensive care unit yesterday. She was complaining of from pain in her right foot this morning started from yesterday, she thought this could be due to her transfer and she hit her foot, we'll check x-ray blood pressure 107/52. She still on heparin drip, oral Lasix and aspirin. patient and her heart surgery later on this week. 03/03/2020 Patient is awake, no chest pain or dyspnea however she has pain and swelling in her right foot after she injured her foot during the transport to the floor. x- rays: No fracture. We will do ultrasound of the soft tissues as patient is on heparin drip to rule out hematoma. Her CBC is unremarkable this morning. Her vitals are stable. It also should UTI secondary to Klebsiella, which is sensitive to Rocephin and Levaquin but resistant to cefazolin, also patient is on multiple medications ALLERGY. However patient is on cefazolin already, we will start the patient on ceftriaxone with close monitoring. however bed side RN got concerned about given ceftriaxone given pt allergy , so ID team were consulted , pt was stated on nitrofurontin but i do not this is enough treatment for pt with fever going for major surgery She is planned for bypass surgery and mitral and tricuspid fall for repair tomorrow. 03/04/2020 pt unerwent today for surgery for bypass of her triple coronary artery disease , ad mitral and tricuspid valve repaire. pt with evidence of uti and multiple allergies , pt is started on aztreonam wbc is increased to 19.6 k , repeat UA is ordered pt is placed also on aspirin and plavix. Objective - Vital Signs Vital signs: Vital Signs Temp 98.5 F 03/04/20 06:47 Pulse 83 03/04/20 06:47 Resp 16 03/04/20 06:47 BP 97/53 03/04/20 06:47 Pulse Ox 97 03/04/20 06:47 Intake & Output 03/03/20 03/04/20 03/04/20 18:59 06:59 18:59 Intake Total 240 50 308.29 Output Total 300 1300 Balance -60 50 -991.71 Weight 53.4 kg 53.4 kg Intake: IV 50 303 Intake, IV Titration 5.29 Amount Norepinephrine 4 mg In 5.29 Sodium Chloride 0.9% 250 ml @ 0.02 MCG/KG/MIN 4. 069 mls/hr IV .[facility] Rx#:[id number] Oral 240 Output: Urine 300 300 Estimated Blood Loss 1000 Other: Voiding Method Bedside Commode Bedside Commode Incontinent Incontinent # Voids 1 1 # Bowel Movements 1 1 - Labs CBC & Chem 7: 03/04/20 16:20 03/04/20 16:20 Labs: Abnormal Lab Results - Last 24 Hours (Table) 03/03/20 03/03/20 03/03/20 Range/Units 06:04 20:31 20:31 WBC (3.8-10.6) k/uL RBC (3.80-5.40) m/uL Hgb (11.4-16.0) gm/dL Hct (34.0-46.0) % MCV 101.6 H (80.0-100.0) fL Plt Count (150-450) k/uL Neutrophils # 7.9 H (1.3-7.7) k/uL Lymphocytes # 0.4 L (1.0-4.8) k/uL Monocytes # (0-1.0) k/uL PT (9.0-12.0) sec INR (<1.2) APTT (22.0-30.0) sec ABG pH (7.35-7.45) ABG pCO2 (35-45) mmHg ABG pO2 (83-108) mmHg ABG HCO3 (21-25) mmol/L ABG Total CO2 (19-24) mmol/L ABG O2 Saturation (94-97) % ABG Hematocrit (34.0-46.0) % ABG Sodium (135-146) mmol/L ABG Potassium (3.4-4.5) mmol/L ABG Ionized Calcium (4.5-5.3) mg/dL ABG Glucose (75-99) mg/dL ABG Lactic Acid (0.5-1.6) mmol/L Hemoglobin (11.4-16.0) gm/dL Sodium (137-145) mmol/L Calcium (8.4-10.2) mg/dL Magnesium (1.6-2.3) mg/dL Total Bilirubin (0.2-1.3) mg/dL AST (14-36) U/L Alkaline Phosphatase (38-126) U/L C-Reactive Protein 147.8 H (<10.0) mg/L Total Protein (6.3-8.2) g/dL Albumin (3.5-5.0) g/dL Arterial Blood Potassium (3.4-4.5) mmol/L Arterial Blood Glucose (75-99) mg/dL Urine Appearance (Clear) Urine Protein (Negative) Urine Bacteria (None) /hpf Urine Mucus (None) /hpf Crossmatch See Detail 03/04/20 03/04/20 03/04/20 Range/Units 08:30 08:44 10:41 WBC (3.8-10.6) k/uL RBC (3.80-5.40) m/uL Hgb (11.4-16.0) gm/dL Hct (34.0-46.0) % MCV (80.0-100.0) fL Plt Count (150-450) k/uL Neutrophils # (1.3-7.7) k/uL Lymphocytes # (1.0-4.8) k/uL Monocytes # (0-1.0) k/uL PT (9.0-12.0) sec INR (<1.2) APTT (22.0-30.0) sec ABG pH 7.46 H (7.35-7.45) ABG pCO2 (35-45) mmHg ABG pO2 >420 H 175 H (83-108) mmHg ABG HCO3 27 H 26 H (21-25) mmol/L ABG Total CO2 28 H 27 H (19-24) mmol/L ABG O2 Saturation 100.0 H 99.6 H (94-97) % ABG Hematocrit 33 L 33 L (34.0-46.0) % ABG Sodium 133 L 133 L (135-146) mmol/L ABG Potassium (3.4-4.5) mmol/L ABG Ionized Calcium (4.5-5.3) mg/dL ABG Glucose 115 H 158 H (75-99) mg/dL ABG Lactic Acid (0.5-1.6) mmol/L Hemoglobin 10.6 L 10.9 L (11.4-16.0) gm/dL Sodium (137-145) mmol/L Calcium (8.4-10.2) mg/dL Magnesium (1.6-2.3) mg/dL Total Bilirubin (0.2-1.3) mg/dL AST (14-36) U/L Alkaline Phosphatase (38-126) U/L C-Reactive Protein (<10.0) mg/L Total Protein (6.3-8.2) g/dL Albumin (3.5-5.0) g/dL Arterial Blood Potassium (3.4-4.5) mmol/L Arterial Blood Glucose 115 H 158 H (75-99) mg/dL Urine Appearance Cloudy H (Clear) Urine Protein 1+ H (Negative) Urine Bacteria Rare H (None) /hpf Urine Mucus Occasional H (None) /hpf Crossmatch 03/04/20 03/04/20 03/04/20 Range/Units 11:41 12:12 12:47 WBC (3.8-10.6) k/uL RBC (3.80-5.40) m/uL Hgb (11.4-16.0) gm/dL Hct (34.0-46.0) % MCV (80.0-100.0) fL Plt Count (150-450) k/uL Neutrophils # (1.3-7.7) k/uL Lymphocytes # (1.0-4.8) k/uL Monocytes # (0-1.0) k/uL PT (9.0-12.0) sec INR (<1.2) APTT (22.0-30.0) sec ABG pH 7.52 H (7.35-7.45) ABG pCO2 27 L (35-45) mmHg ABG pO2 >420 H 337 H 331 H (83-108) mmHg ABG HCO3 26 H (21-25) mmol/L ABG Total CO2 27 H 27 H (19-24) mmol/L ABG O2 Saturation 100.0 H 100.0 H 100.0 H (94-97) % ABG Hematocrit 24 L 22 L 22 L (34.0-46.0) % ABG Sodium 129 L 129 L 130 L (135-146) mmol/L ABG Potassium 4.9 H (3.4-4.5) mmol/L ABG Ionized Calcium 4.1 L 4.3 L 4.3 L (4.5-5.3) mg/dL ABG Glucose 161 H 249 H 256 H (75-99) mg/dL ABG Lactic Acid 1.7 H (0.5-1.6) mmol/L Hemoglobin 7.9 L 7.2 L 7.0 L* (11.4-16.0) gm/dL Sodium (137-145) mmol/L Calcium (8.4-10.2) mg/dL Magnesium (1.6-2.3) mg/dL Total Bilirubin (0.2-1.3) mg/dL AST (14-36) U/L Alkaline Phosphatase (38-126) U/L C-Reactive Protein (<10.0) mg/L Total Protein (6.3-8.2) g/dL Albumin (3.5-5.0) g/dL Arterial Blood Potassium 4.9 H (3.4-4.5) mmol/L Arterial Blood Glucose 161 H 249 H 256 H (75-99) mg/dL Urine Appearance (Clear) Urine Protein (Negative) Urine Bacteria (None) /hpf Urine Mucus (None) /hpf Crossmatch 07/10/2303/04/20 03/04/20 Range/Units 13:21 14:05 14:38 WBC (3.8-10.6) k/uL RBC (3.80-5.40) m/uL Hgb (11.4-16.0) gm/dL Hct (34.0-46.0) % MCV (80.0-100.0) fL Plt Count (150-450) k/uL Neutrophils # (1.3-7.7) k/uL Lymphocytes # (1.0-4.8) k/uL Monocytes # (0-1.0) k/uL PT (9.0-12.0) sec INR (<1.2) APTT (22.0-30.0) sec ABG pH (7.35-7.45) ABG pCO2 (35-45) mmHg ABG pO2 344 H 307 H >420 H (83-108) mmHg ABG HCO3 26 H (21-25) mmol/L ABG Total CO2 27 H 26 H 25 H (19-24) mmol/L ABG O2 Saturation 100.0 H 100.0 H 100.0 H (94-97) % ABG Hematocrit 21 L 21 L 21 L (34.0-46.0) % ABG Sodium 131 L 130 L 131 L (135-146) mmol/L ABG Potassium (3.4-4.5) mmol/L ABG Ionized Calcium 4.4 L 4.4 L (4.5-5.3) mg/dL ABG Glucose 219 H 223 H 197 H (75-99) mg/dL ABG Lactic Acid 2.3 H* 2.7 H* 2.9 H* (0.5-1.6) mmol/L Hemoglobin 6.9 L* 6.8 L* 6.8 L* (11.4-16.0) gm/dL Sodium (137-145) mmol/L Calcium (8.4-10.2) mg/dL Magnesium (1.6-2.3) mg/dL Total Bilirubin (0.2-1.3) mg/dL AST (14-36) U/L Alkaline Phosphatase (38-126) U/L C-Reactive Protein (<10.0) mg/L Total Protein (6.3-8.2) g/dL Albumin (3.5-5.0) g/dL Arterial Blood Potassium (3.4-4.5) mmol/L Arterial Blood Glucose 219 H 223 H 197 H (75-99) mg/dL Urine Appearance (Clear) Urine Protein (Negative) Urine Bacteria (None) /hpf Urine Mucus (None) /hpf Crossmatch 03/04/20 03/04/20 03/04/20 Range/Units 15:54 16:20 16:20 WBC 19.6 H (3.8-10.6) k/uL RBC 2.20 L (3.80-5.40) m/uL Hgb 7.2 L D (11.4-16.0) gm/dL Hct 22.6 L (34.0-46.0) % MCV 102.7 H (80.0-100.0) fL Plt Count 140 L (150-450) k/uL Neutrophils # 16.7 H (1.3-7.7) k/uL Lymphocytes # 0.8 L (1.0-4.8) k/uL Monocytes # 1.7 H (0-1.0) k/uL PT 12.9 H (9.0-12.0) sec INR 1.3 H (<1.2) APTT 51.8 H (22.0-30.0) sec ABG pH 7.31 L (7.35-7.45) ABG pCO2 46 H (35-45) mmHg ABG pO2 416 H (83-108) mmHg ABG HCO3 (21-25) mmol/L ABG Total CO2 (19-24) mmol/L ABG O2 Saturation 100.0 H (94-97) % ABG Hematocrit 23 L (34.0-46.0) % ABG Sodium 134 L (135-146) mmol/L ABG Potassium (3.4-4.5) mmol/L ABG Ionized Calcium (4.5-5.3) mg/dL ABG Glucose 110 H (75-99) mg/dL ABG Lactic Acid 3.8 H* (0.5-1.6) mmol/L Hemoglobin 7.6 L (11.4-16.0) gm/dL Sodium (137-145) mmol/L Calcium (8.4-10.2) mg/dL Magnesium (1.6-2.3) mg/dL Total Bilirubin (0.2-1.3) mg/dL AST (14-36) U/L Alkaline Phosphatase (38-126) U/L C-Reactive Protein (<10.0) mg/L Total Protein (6.3-8.2) g/dL Albumin (3.5-5.0) g/dL Arterial Blood Potassium (3.4-4.5) mmol/L Arterial Blood Glucose 110 H (75-99) mg/dL Urine Appearance (Clear) Urine Protein (Negative) Urine Bacteria (None) /hpf Urine Mucus (None) /hpf Crossmatch 03/04/20 03/04/20 03/04/20 Range/Units 16:20 16:39 17:22 WBC (3.8-10.6) k/uL RBC (3.80-5.40) m/uL Hgb (11.4-16.0) gm/dL Hct (34.0-46.0) % MCV (80.0-100.0) fL Plt Count (150-450) k/uL Neutrophils # (1.3-7.7) k/uL Lymphocytes # (1.0-4.8) k/uL Monocytes # (0-1.0) k/uL PT (9.0-12.0) sec INR (<1.2) APTT (22.0-30.0) sec ABG pH 7.32 L (7.35-7.45) ABG pCO2 47 H (35-45) mmHg ABG pO2 353 H 399 H (83-108) mmHg ABG HCO3 (21-25) mmol/L ABG Total CO2 25 H 26 H (19-24) mmol/L ABG O2 Saturation 100.0 H 100.0 H (94-97) % ABG Hematocrit (34.0-46.0) % ABG Sodium (135-146) mmol/L ABG Potassium (3.4-4.5) mmol/L ABG Ionized Calcium (4.5-5.3) mg/dL ABG Glucose (75-99) mg/dL ABG Lactic Acid (0.5-1.6) mmol/L Hemoglobin (11.4-16.0) gm/dL Sodium 135 L (137-145) mmol/L Calcium 8.3 L (8.4-10.2) mg/dL Magnesium 2.8 H (1.6-2.3) mg/dL Total Bilirubin 1.7 H (0.2-1.3) mg/dL AST 71 H (14-36) U/L Alkaline Phosphatase 29 L (38-126) U/L C-Reactive Protein (<10.0) mg/L Total Protein 4.7 L (6.3-8.2) g/dL Albumin 2.8 L (3.5-5.0) g/dL Arterial Blood Potassium (3.4-4.5) mmol/L Arterial Blood Glucose (75-99) mg/dL Urine Appearance (Clear) Urine Protein (Negative) Urine Bacteria (None) /hpf Urine Mucus (None) /hpf Crossmatch
[2020-03-04] MEDS: DEXMEDETOMIDINE/0.9% NACL(PMX) 400 MCG in EMPTY BAG 1 BAG IV SCH (18:34)
[2020-03-04] MEDS: MILRINONE-D5W PMX 20 MG in DEXTROSE/WATER 1 100ML.BAG IV SCH (18:35)
[2020-03-04 19:08] LABS: Glucose,Whole Blood 109 mg/dL (75-99)
[2020-03-04 19:27] LABS: ABG Base Excess -3.2 mmol/L; ABG HCO3 23 mmol/L (21-25); ABG Oxygen Saturation 37.1 % (94-97); ABG PCO2 42 mmHg (35-45); ABG PH 7.34 (7.35-7.45); ABG TCO2 24 mmol/L (19-24)
[2020-03-04 19:34] LABS: Allen Test Performed? no
[2020-03-04] MEDS ORDERED: EPINEPHrine 4 MG in DEXTROSE 5% IN WATER 250 ML IV SCH ×2 (19:45)
[2020-03-04] MEDS ORDERED: IPRATROPIUM-ALBUTEROL 3 ML NEB INHALATION SCH ×2 (20:00→22:11)
[2020-03-04 20:01] LABS: African American GFR (CKD) >90 (>60 ml/min/1.73 sqM); Anion Gap 8 mmol/L; Blood Urea Nitrogen 14 mg/dL (7-17); Calcium 8.5 mg/dL (8.4-10.2); Carbon Dioxide 22 mmol/L (22-30); Chloride 103 mmol/L (98-107); Glucose 106 mg/dL (74-99); Non-African American GFR(CKD) 87 (>60 ml/min/1.73 sqM); Potassium 4.4 mmol/L (3.5-5.1); Sodium 133 mmol/L (137-145)
[2020-03-04 20:06] LABS: Glucose,Whole Blood 130 mg/dL (75-99)
[2020-03-04 20:55] LABS: Basophils % (A) 0 %; Eosinophils % (A) 0 %; Hypochromasia Slight; Lymphocytes # (A) 0.8 k/uL (1.0-4.8); Lymphocytes % (A) 6 %; MCH 34.2 pg (25.0-35.0); MCHC 33.2 g/dL (31.0-37.0); Macrocytosis Slight; Mean Platelet Volume 9.7; Monocytes # (A) 1.4 k/uL (0-1.0); Monocytes % (A) 10 %; Neutrophils # (A) 12.1 k/uL (1.3-7.7); Neutrophils % (A) 82 %; Platelet Count 134 k/uL (150-450); RBC 1.94 m/uL (3.80-5.40); RDW 13.9 % (11.5-15.5); WBC 14.8 k/uL (3.8-10.6)
[2020-03-04 20:57] LABS: HGB 6.6 gm/dL (11.4-16.0)
[2020-03-04 21:05] LABS: Glucose,Whole Blood 146 mg/dL (75-99)
[2020-03-04 21:05] LABS: ABG Base Excess -5.7 mmol/L; ABG HCO3 20 mmol/L (21-25); ABG PCO2 37 mmHg (35-45); ABG PH 7.34 (7.35-7.45); ABG PO2 141 mmHg (83-108); ABG TCO2 21 mmol/L (19-24)
[2020-03-04 21:10] LABS: Allen Test Performed? no
[2020-03-04] MEDS ORDERED: SODIUM BICARB 8.4% 50 ML SYR (1 MEQ/ML) IV STA ×2 (21:14→21:17)
[2020-03-04 22:16] LABS: Glucose,Whole Blood 154 mg/dL (75-99)
--- NOTE | 2020-03-04 22:29 | PN ---
PROGRESS NOTE DATE OF SERVICE: 03/04/2020 REASON FOR FOLLOWUP: Klebsiella urinary tract infection. INTERVAL HISTORY: The patient did spike a fever last night of 101.2 degrees Fahrenheit. The patient is afebrile since then. The patient is status post bypass and repair of her mitral valve this morning per CT Surgery. The patient is subsequently in the ICU on the vent requiring low-dose pressor support. No other changes have been documented or reported by the nursing staff. PHYSICAL EXAMINATION: Blood pressure 110/53 with a pulse of 92, temperature 96.9. She is 97% on 50% FiO2. General description is an elderly female lying in bed in no distress. RESPIRATORY SYSTEM: Unlabored breathing. Clear to auscultation anteriorly. HEART: S1, S2. Regular rate and rhythm. ABDOMEN: Soft. No tenderness. LABS: Hemoglobin 6.6, white count 14.8, BUN of 14, creatinine 0.71. DIAGNOSTIC IMPRESSION AND PLAN: Patient with Klebsiella urinary tract infection, possible catheter-associated. The patient is currently covered with Azactam because of her MULTIPLE ANTIBIOTIC ALLERGIES; to be continued and we will monitor her clinical course closely. MMODL / IJN: [id number] /
[2020-03-04 22:38] LABS: ABG Base Excess -1.8 mmol/L; ABG HCO3 23 mmol/L (21-25); ABG Oxygen Saturation 98.8 % (94-97); ABG PCO2 36 mmHg (35-45); ABG PH 7.41 (7.35-7.45); ABG PO2 117 mmHg (83-108); ABG TCO2 24 mmol/L (19-24)
[2020-03-04 22:39] LABS: ABG Base Excess -1.1 mmol/L; ABG HCO3 24 mmol/L (21-25); ABG Oxygen Saturation 43.5 % (94-97); ABG PCO2 43 mmHg (35-45); ABG PH 7.36 (7.35-7.45); ABG TCO2 26 mmol/L (19-24)
[2020-03-04 23:00] LABS: Allen Test Performed? no
[2020-03-04 23:01] LABS: Allen Test Performed? no
[2020-03-04 23:08] LABS: Glucose,Whole Blood 159 mg/dL (75-99)
[2020-03-04 23:56] LABS: Glucose,Whole Blood 146 mg/dL (75-99)
[2020-03-05] MEDS ORDERED: HEPARIN SODIUM,PORCINE 5,000 UNIT/ML 1 ML VIAL SQ SCH (00:11)
[2020-03-05] MEDS ORDERED: NOREPINEPHRINE 32 MG in SODIUM CHLORIDE 0.9% 218 ML IV SCH (00:30)
[2020-03-05 01:05] LABS: Glucose,Whole Blood 135 mg/dL (75-99)
[2020-03-05] MEDS: MILRINONE-D5W PMX 20 MG in DEXTROSE/WATER 1 100ML.BAG IV SCH (01:41)
[2020-03-05 01:56] LABS: Glucose,Whole Blood 127 mg/dL (75-99)
[2020-03-05 02:57] LABS: Glucose,Whole Blood 116 mg/dL (75-99)
[2020-03-05 03:58] LABS: Glucose,Whole Blood 119 mg/dL (75-99)
[2020-03-05] MEDS ORDERED: HYDROcodone/APAP 5-325MG 1 EACH TAB PO PRN ×2 (04:10)
[2020-03-05 04:17] LABS: Ionized Calcium 4.8 mg/dL (4.5-5.3)
[2020-03-05] MEDS: SODIUM CHLORIDE 0.9% 50 ML with VASOPRESSIN 20 UNIT IVPB SCH ×2 (04:21)
[2020-03-05 04:27] LABS: ALT 39 U/L (4-34); AST 104 U/L (14-36); African American GFR (CKD) >90 (>60 ml/min/1.73 sqM); Albumin 2.8 g/dL (3.5-5.0); Alkaline Phosphatase 33 U/L (38-126); Anion Gap 8 mmol/L; Blood Urea Nitrogen 17 mg/dL (7-17); Calcium 8.1 mg/dL (8.4-10.2); Carbon Dioxide 23 mmol/L (22-30); Chloride 103 mmol/L (98-107); Glucose 106 mg/dL (74-99); Magnesium 2.5 mg/dL (1.6-2.3); Non-African American GFR(CKD) 86 (>60 ml/min/1.73 sqM); Potassium 4.7 mmol/L (3.5-5.1); Sodium 134 mmol/L (137-145); Total Bilirubin 3.3 mg/dL (0.2-1.3); Total Protein 4.7 g/dL (6.3-8.2)
[2020-03-05 04:35] LABS: Basophils % (A) 0 %; Eosinophils % (A) 0 %; HCT 27.8 % (34.0-46.0); Lymphocytes # (A) 1.2 k/uL (1.0-4.8); Lymphocytes % (A) 8 %; MCH 33.2 pg (25.0-35.0); MCHC 33.9 g/dL (31.0-37.0); Monocytes # (A) 1.2 k/uL (0-1.0); Monocytes % (A) 8 %; Neutrophils # (A) 12.2 k/uL (1.3-7.7); Neutrophils % (A) 82 %; Platelet Count 165 k/uL (150-450); Poikilocytosis Slight; RBC 2.84 m/uL (3.80-5.40); RDW 15.4 % (11.5-15.5); WBC 14.9 k/uL (3.8-10.6)
[2020-03-05 04:42] LABS: HGB 9.4 gm/dL (11.4-16.0)
[2020-03-05 04:53] LABS: ABG Base Excess -1.4 mmol/L; ABG HCO3 23 mmol/L (21-25); ABG Oxygen Saturation 99.1 % (94-97); ABG PCO2 32 mmHg (35-45); ABG PH 7.45 (7.35-7.45); ABG PO2 138 mmHg (83-108); ABG TCO2 24 mmol/L (19-24)
[2020-03-05 04:55] LABS: ABG Base Excess -0.8 mmol/L; ABG HCO3 24 mmol/L (21-25); ABG Oxygen Saturation 37.4 % (94-97); ABG PCO2 41 mmHg (35-45); ABG PH 7.38 (7.35-7.45); ABG TCO2 26 mmol/L (19-24)
[2020-03-05 04:58] LABS: Allen Test Performed? no
[2020-03-05 04:59] LABS: Allen Test Performed? no
[2020-03-05 05:04] LABS: Glucose,Whole Blood 113 mg/dL (75-99)
[2020-03-05 05:07] VITALS: BP 90/62; PULSE 81; RESP 19
[2020-03-05] MEDS: DEXMEDETOMIDINE/0.9% NACL(PMX) 400 MCG in EMPTY BAG 1 BAG IV SCH (05:12)
[2020-03-05] MEDS: AZTREONAM 1 GM in SODIUM CHLORIDE 0.9% 50 ML IVPB SCH (05:15)
[2020-03-05] MEDS ORDERED: DEXTROSE 5% IN WATER 50 ML BAG ONE (05:28)
[2020-03-05] MEDS ORDERED: SODIUM BICARB 8.4% 50 ML SYR (1 MEQ/ML) ONE ×3 (05:28→05:41)
[2020-03-05] MEDS ORDERED: AMIODARONE 50 MG/ML 3 ML VIAL IV ONE (05:28)
[2020-03-05] MEDS ORDERED: CALCIUM CHLORIDE 100 MG/ML 10 ML SYRINGE ONE (05:28)
[2020-03-05] MEDS ORDERED: EPINEPHrine 10 ML SYRINGE (0.1 MG/ML) ONE ×2 (05:28)
--- NOTE | 2020-03-05 06:27 | P.PN ---
Progress Note - Text Progress Note Date: 03/05/20 Code Blue Team Note Code blue activated at 5:28 am. Upon arrival to the scene, the patient was undergoing CPR. She had reportedly developed hypotension and subsequently lost her pulse. Reviewed the chart including labs and discussed the patient with the the RN upon arrival. She received Epinephrine IVP x 7, sodium bicarbonate IVP x 3, and calcium chloride x 3. The patient was shocked with 360 J for V-Fib. The RN discussed the case with Dr Beck via phone who did recommend the amiodarone IV during the code. The patient was pronounced at 5:58 am. For further details, please refer to the code-sheet.
[2020-03-05 07:30] VITALS: TEMP 97.9
--- NOTE | 2020-03-05 07:48 | OP ---
OPERATIVE REPORT DATE OF THE SURGERY: 03/04/2020. SURGEON: Dr. Sakina Beck. CLINICAL PHARMACY MANAGER: Winston Crowell, Physician enrichment assistant and Levar Valentino, Nurse practitioner. PREOPERATIVE DIAGNOSES: Triple-vessel coronary artery disease with a chronically occluded left anterior descending artery with an old anterior wall myocardial infarction, severe left ventricular dysfunction, severe mitral valve regurgitation, severe tricuspid valve regurgitation, urinary tract infection, asthma, remote history of sarcoidosis, arthritis, multiple allergies. POSTOPERATIVE DIAGNOSES: Triple-vessel coronary artery disease with a chronically occluded left anterior descending artery with an old anterior wall myocardial infarction, severe left ventricular dysfunction, severe mitral valve regurgitation, severe tricuspid valve regurgitation, urinary tract infection, asthma, remote history of sarcoidosis, arthritis, multiple allergies. PROCEDURE PERFORMED: 1. Quadruple coronary artery bypass grafting using the left internal mammary artery to the left anterior descending artery, reverse saphenous vein graft from the aorta to the 1st obtuse marginal artery, reverse saphenous vein graft from the aorta to the 2nd obtuse marginal artery, reverse saphenous vein graft from the aorta to the posterior descending artery. 2. Mitral valve repair with a reduction annuloplasty using a 28 mm physio 2 ring. 3. Tricuspid valve repair using a reduction annuloplasty with a 28 mm MC3 ring. 4. Exclusion of the left atrial appendage using a 40 mm AtriClip. 5. Endoscopic harvesting of the right greater saphenous vein. 6. Intraoperative graft flow measurements using the [employer] system. 7. Intraoperative transesophageal echocardiogram and epiaortic scanning. INDICATION FOR SURGERY: The patient is a 69-year-old lady who was admitted in heart failure and had positive enzymes. Workup included a cardiac catheterization and a 2D echo and a YNES. The patient has a chronically occluded left anterior descending artery with a remote anterior wall myocardial infarction causing distal anteroapical thinning and dilatation with resultant severe left ventricular dysfunction and severe mitral valve regurgitation as well as tricuspid valve regurgitation even after several days of diuresis. The patient has not been on medical therapy, so we elected to wait around 1 week. Meanwhile, workup showed also some urinary tract infection that was treated with Macrobid in view of the patient's multiple antibiotic allergies. She had 1 fever spike the night before surgery and at that point, we switched to Azactam IV and looking at the pros and cons of delaying surgery versus proceeding with a potential known UTI that we are treating, we elected to proceed with surgery. The increased STS risk was discussed with this lady and her sister and they understood it and agreed to proceed. DESCRIPTION OF THE PROCEDURE: The patient in supine position, the right internal jugular Primghar-Jerry catheter and a right brachial arterial line were placed. Cardiac index was 2.4 and her PA pressure was 40/20. Subsequently, she was brought to the operating room where general endotracheal anesthesia was induced uneventfully. Cheung catheter was inserted. We sent another specimen for urinalysis and urine culture. Initial plan to use the radial artery were aborted as her modified Alexis's test using the platysmal Roberto probe was very positive precluding use of the left radial artery. There was a plan in view of a history of stripping of both greater saphenous vein. However, we had vein identified by ultrasound. The chest, abdomen and both lower extremities were prepped and draped using ChloraPrep. Ioban was used to cover the skin. Patient received 750 mg of vancomycin intravenously and 1 g of aztreonam intravenously as surgical prophylaxis. Transesophageal echocardiogram confirmed the preoperative finding of severe left ventricular dysfunction, severe mitral valve regurgitation that was functional in nature as well as severe tricuspid valve regurgitation. Midline sternotomy was performed and the bone was osteoporotic. No bone wax was used. The left hemisternum was elevated and left internal mammary artery was harvested in a somewhat skeletonized fashion. The left pleura was intentionally opened in this process and was drained with a 19-Spanish Mert drain. The right pleura was also opened and drained with another 19-Spanish Mert drain. The patient was given 5000 units of heparin before clipping the mammary distally and transecting it and had a good pulsatile flow in it and was around 1.75 mm in diameter. In the same setting, the right greater saphenous vein was harvested endoscopically from groin to above ankle level after administration of initial 2000 units of heparin. The leg incisions were closed over a drain. The vein was prepared and appeared to have reasonable segments. However, it was thin-walled. The branches were tied. The Jaime Nobles retractor was used. Mediastinal fat was transected with the Bovie, and mediastinal veins clipped. Epiaortic scanning revealed some concentric intimal thickening and calcification. In the proximal aorta, however, beyond the crossing of the right pulmonary artery, the aorta was with no visible disease on ultrasound. Pericardium was opened in an inverted T-fashion and a pericardial cradle was created. Findings included normal soft aorta and enlarged heart with evidence of visible old anterior wall myocardial infarction and thinning. After systemic heparinization, after placement of respective pledgeted pursestring, aortic cannulation with a 21-Spanish soft flow cannula, direct SVC cannulation with a right angle 28-Spanish cannula and IVC cannulation at the junction with the right atrium with a 30-Spanish cannula was performed. Antegrade as well as retrograde cardioplegia catheter were placed. Cardioplegia bypass was initiated with the heart empty and beating, we looked at the target and appeared that the distal LAD, the 1st obtuse marginal artery, the 2nd obtuse marginal artery and the posterior descending artery with the site for bypass. The patient temperature was allowed to drift down to 34 degrees Celsius. Aorta was clamped and during aortic clamping myocardial protection was achieved. An initial dose of 1 L of antegrade cold blood cardioplegia followed by 400 mL of retrograde cold blood cardioplegia. All subsequent doses were given retrograde at 15 minutes interval. The 1st part of the surgery was performed all distal anastomosis. The 1st distal anastomosis was between a relatively small piece of saphenous vein graft and the 1st obtuse marginal artery which was around 1.5 mm in diameter, thin-walled using Prolene 7- 0 in continuous fashion. I used a 1 mm shunt in all my anastomosis that was retrieved before completing the anastomosis. The 2nd distal anastomosis was between a bigger segment of vein that was thin-walled and the 2nd obtuse marginal artery which was around 1.7 mm in diameter using Prolene 7-0 in continuous fashion. The 3rd distal anastomosis was seen a relatively small thin-walled segment of vein and the 1.5 mm posterior descending artery using Prolene 7-0 in continuous fashion. The fourth and last distal anastomosis were in left internal mammary artery and the mid to distal left anterior descending artery which was around 1.7 mm in diameter thin-walled using Prolene 7-0 in continuous fashion. At this point, the left atrial appendage was clipped with a 40 mm AtriClip. Both vena cava were encircled. At this point, we moved at performing the mitral valve repair part. The interatrial groove was developed and a standard transverse left atriotomy was performed. The Jaime retractor helped us in nicely identifying the mitral valve which had a dilated anulus and had no structural problem to it. A total of 10 sutures of non pledgeted Tycron 2-0 were plastered all along the anulus and a full ring 28 mm physio 2 was selected and all the needles passed in the ring. The ring seated nicely. All the needles were cut and the suture tied using the core knot device. Testing revealed excellent seal. CO2 was flowing over the left-sided cavity as long as the left atrium was opened. Subsequently, we proceeded closing the left atriotomy using Prolene 4-0 pledgeted on each corner and meeting in the midline. At this point, I elected to perform the proximal anastomosis. Three buttons were punched out of the ascending aorta and all 3 veins anastomosed proximally using Prolene 6-0 in continuous fashion. The last part of the surgery was to perform the tricuspid valve repair, which I elected to still do with the heart clamped. The retrograde catheter was removed and a transverse right atriotomy from the appendage to superior to the insertion of the IVC cannula was performed. The Jaime mitral retractor was used to nicely expose the tricuspid valve. The Primghar-Jerry was left in situ. A total of 10 sutures of Tycron 2-0 were passed from close to the commissure between the septal and anterior leaflet away from the AV node all around to the other side of the commissure. Those were passed into a 28 mm MC 3 ring which seated nicely. The needles were cut and the suture tied using the core knot device. Testing showed some mild central leak around the Primghar-Jerry catheter. There was no prolapse or flail segment on the tricuspid valve. Rewarming was started as we closed the right atriotomy using Prolene 4-0 reinforced by autologous pericardial strips that we cut from the patient. Patient was given lidocaine, magnesium, was loaded with Primacor and de-airing maneuvers were followed before unclamping the aorta. He regained spontaneous sinus rhythm. After around 20 minutes of reperfusion, we were able to wean off cardioplegia bypass on low-dose Levophed 0.3 mics per kg per minute of Primacor and initially no vasopressin which we had started on low-dose later on. The stallworth index was 2.5. The echo showed improved lateral wall inferior wall function. De-airing took a while in view of akinetic anteroapical wall. Eventually we were satisfied and test dose then full dose protamine was given. Decannulation followed. No reinforcement was needed. Two monopolar atrial pacing wires were affixed to the right atrium and 1 bipolar ventricular pacing wire was driven via the inferior aspect of the right ventricle. Two nineteen-Spanish Mert drain were left substernally. A groove was made in the left pleuropericardial fat to accommodate the mammary artery medial to the lung and away from the posterior sternal table. Pericardial fat was approximated over the heart. After ensuring adequate hemostasis and hemodynamic and after correct sponge, instrument, and needle count, the sternum was closed using 5 [id number] pineal cable after interposing fibular between the sternal edges. Thorough irrigation of cefazolin followed. The rest of the closure proceeded in layers. The patient was transferred to the ICU in stable condition on moderate support with a cardiac index of 2.5 and low pulmonary artery pressure of 20/10. She did not receive any blood bank product but received 250 mL of Cell Saver blood. MMODL / IJN: [id number] /
--- NOTE | 2020-03-05 08:57 | P.DS ---
Providers Date of admission: 02/24/20 21:20 Attending physician: Sakina Beck Consults: 02/24/20 21:20 Consult Physician Stat Consulting Provider: Marylou Haley Consult Reason/Comments: acute respiratory failure, NSTEMI Do you want consulting provider notified?: Already Contacted Consult Physician Stat Consulting Provider: [facility] Consult Reason/Comments: acute respiratory insuff Do you want consulting provider notified?: Already Contacted 02/24/20 22:35 Consult Physician Routine Consulting Provider: Clifford Thurston Consult Reason/Comments: cabg Do you want consulting provider notified?: Yes, Notify in am 02/25/20 20:01 Consult Physician Routine Consulting Provider: Ministerio Maradiaga Consult Reason/Comments: history of paralyzed vocal cord Do you want consulting provider notified?: Yes 02/26/20 08:19 Consult Physician Routine Consulting Provider: Ministerio Maradiaga Consult Reason/Comments: pre-op eval, possible left vocal cord paralysis Do you want consulting provider notified?: Yes 03/03/20 14:05 Consult Physician Routine Consulting Provider: Rosemarie Smith Consult Reason/Comments: UTI Do you want consulting provider notified?: Yes 03/04/20 16:33 Consult Physician Routine Consulting Provider: Chester Parikh Consult Reason/Comments: med mgmt Do you want consulting provider notified?: Already Contacted Primary care physician: Sakina Beck Hospital Course: Diagnoses: Non-STEMI secondary to Acute coronary artery syndrome with triple-vessel disease, totally occluded mid LAD, critical stenosis in the left circumflex and diagonal branch of the RCA Moderate to severe mitral regurgitation, severe tricuspid regurgitation and severe pulmonary hypertension Acute systolic CHF with bilateral pleural effusion Enlarged mediastinal lymph nodes 1.5 cm Acute urinary tract infection with Klebsiella right foot swelling after trauma History of asthma, not an active issue Psoriasis and psoriatic arthritis Pham's esophagus chronic back pain status post back fusion surgery 3 Degenerative disc disease Sarcoidosis Rheumatoid arthritis Paralyzed left vocal cord Hospital course: his is a pleasant 69 years old female with past medical history of asthma, back pain status post back fusion surgery, psoriasis, Pham's esophagus, degenerative disc disease, sarcoidosis, rheumatoid arthritis, paralyzed left vocal cord. She is a patient of Dr. Fall as her primary doctor. She presents because of dyspnea on and off of 2 days' duration. Patient is been evaluated by calibration laboratory technician and sheunderwent emergent cardiac cath with unsuccessful recanalization of chronic total occlusion of the mid left anterior descending artery with a recommendation for evaluation for bypass surgery in view of the patient's cardiac anatomy and triple-vessel coronary artery disease. After extensive workup patient underwent triple vessel cardiac bypass surgery yesterday with mitral valve and tricuspid valve repair for her severe MR and TR. Today was postop day #1., She was in the ICU however she became hypotensive and CODE BLUE was called and run by the LO BLUE team, and fortunately it was unsuccessful resuscitation and patient is pronounced at 5:58 am. Patient Condition at Discharge: Serious Plan - Discharge Summary Discharge Rx Participant: Yes New Discharge Prescriptions: No Action HYDROcodone/APAP 7.5-325MG [[place] 7.5-325] 1 - 2 tab PO Q6H PRN PRN Reason: Pain Diazepam [Valium] 10 mg PO Q8H PRN PRN Reason: Anxiety diphenhydrAMINE [Benadryl] 25 mg PO Q4H PRN PRN Reason: Allergic Reaction Discharge Medication List Diazepam [Valium] 10 mg PO Q8H PRN 05/15/16 [History] HYDROcodone/APAP 7.5-325MG [[place] 7.5-325] 1 - 2 tab PO Q6H PRN 05/15/16 [History] diphenhydrAMINE [Benadryl] 25 mg PO Q4H PRN 02/24/20 [History] Follow up Appointment(s)/Referral(s): Rubén Fall DO [Doctor of Osteopathic Medicine] - 1-2 days [facility], [NON-STAFF] -
[2020-03-05] MEDS ORDERED: PANTOPRAZOLE 40 MG/10 ML VIAL IVP SCH (09:00)
[2020-03-05] MEDS ORDERED: ATORVASTATIN 40 MG TAB PO SCH (09:00)
[2020-03-05] MEDS ORDERED: BISACODYL 10 MG SUPP RECTAL PRN (09:00)
[2020-03-05] MEDS ORDERED: MAGNESIUM HYDROXIDE 2,400 MG/10 ML CUP PO PRN (09:00)
[2020-03-05] MEDS ORDERED: ASPIRIN 325 MG TAB PO SCH (09:00)
[2020-03-05] MEDS ORDERED: CLOPIDOGREL 75 MG TAB PO SCH (09:00)
[2020-03-05] MEDS ORDERED: CHLORHEXIDINE GLUCONATE 15 ML CUP MUCOUS MEM SCH (09:00)
[2020-03-05] MEDS ORDERED: METOPROLOL TARTRATE 12.5 MG TAB PO SCH (09:00)
[2020-03-05] MEDS ORDERED: SENNOSIDES-DOCUSATE SODIUM 1 EACH TAB PO SCH (21:00)
[2020-03-06 07:55] LABS: ABG PO2 22 mmHg (83-108)
[2020-03-06 09:10] LABS: ABG PO2 23 mmHg (83-108)
[2020-03-06 09:10] LABS: ABG PO2 24 mmHg (83-108)
== END 2020-03-05 10:16 | disposition expired | DRG 216 ==
LOC: EC 17:56 → 2SICU 21:20 → 3SCARD 03-01 20:46 → 2SICU 03-04 06:31
PROVIDERS: ADMIT Surgery; ATTEND Surgery
PROC: B2101ZZ Fluoroscopy of Single Coronary Artery using Low Osmolar Contrast (ICD-10-PCS; 2020-02-24)
PROC: B2111ZZ Fluoroscopy of Multiple Coronary Arteries using Low Osmolar Contrast (ICD-10-PCS; 2020-02-24 20:58)
PROC: 4A023N7 Measurement of Cardiac Sampling and Pressure, Left Heart, Percutaneous Approach (ICD-10-PCS; 2020-02-24 20:58)
PROC: B54DZZZ Ultrasonography of Bilateral Lower Extremity Veins (ICD-10-PCS; 2020-02-25)
PROC: B34KZZZ Ultrasonography of Bilateral Upper Extremity Arteries (ICD-10-PCS; 2020-02-26)
PROC: B44HZZZ Ultrasonography of Bilateral Lower Extremity Arteries (ICD-10-PCS; 2020-02-26)
PROC: B24BZZ4 Ultrasonography of Heart with Aorta, Transesophageal (ICD-10-PCS; 2020-02-26)
PROC: 0BJ08ZZ Inspection of Tracheobronchial Tree, Via Natural or Artificial Opening Endoscopic (ICD-10-PCS; 2020-02-28)
PROC: 0D9670Z Drainage of Stomach with Drainage Device, Via Natural or Artificial Opening (ICD-10-PCS; 2020-03-04)
PROC: 02UJ0JZ Supplement Tricuspid Valve with Synthetic Substitute, Open Approach (ICD-10-PCS; principal; 2020-03-04 08:00)
PROC: 021209W Bypass Coronary Artery, Three Arteries from Aorta with Autologous Venous Tissue, Open Approach (ICD-10-PCS; principal; 2020-03-04 08:00)
PROC: 02L70CK Occlusion of Left Atrial Appendage with Extraluminal Device, Open Approach (ICD-10-PCS; principal; 2020-03-04 08:00)
PROC: B24BZZ4 Ultrasonography of Heart with Aorta, Transesophageal (ICD-10-PCS; principal; 2020-03-04 08:00)
PROC: 5A1221Z Performance of Cardiac Output, Continuous (ICD-10-PCS; principal; 2020-03-04 08:00)
PROC: 06BP4ZZ Excision of Right Saphenous Vein, Percutaneous Endoscopic Approach (ICD-10-PCS; principal; 2020-03-04 08:00)
PROC: 02100Z9 Bypass Coronary Artery, One Artery from Left Internal Mammary, Open Approach (ICD-10-PCS; principal; 2020-03-04 08:00)
PROC: 02UG0JZ Supplement Mitral Valve with Synthetic Substitute, Open Approach (ICD-10-PCS; principal; 2020-03-04 08:00)
PROC: 30243N1 Transfusion of Nonautologous Red Blood Cells into Central Vein, Percutaneous Approach (ICD-10-PCS; principal; 2020-03-04 08:00)
PROC: 4A1305C Monitoring of Arterial Flow, Coronary, Open Approach (ICD-10-PCS; principal; 2020-03-04 08:00)
PROC: 3E043XZ Introduction of Vasopressor into Central Vein, Percutaneous Approach (ICD-10-PCS; principal; 2020-03-04 08:00)
PROC: 5A12012 Performance of Cardiac Output, Single, Manual (ICD-10-PCS; 2020-03-05)
DX: I21.4 Non-ST elevation (NSTEMI) myocardial infarction (principal); I50.21 Acute systolic (congestive) heart failure; N39.0 Urinary tract infection, site not specified; T83.511A Infection and inflammatory reaction due to indwelling urethral catheter, initial encounter; J96.01 Acute respiratory failure with hypoxia; I27.20 Pulmonary hypertension, unspecified; L40.50 Arthropathic psoriasis, unspecified; M45.9 Ankylosing spondylitis of unspecified sites in spine; M06.9 Rheumatoid arthritis, unspecified; I49.01 Ventricular fibrillation; I46.2 Cardiac arrest due to underlying cardiac condition; I25.10 Atherosclerotic heart disease of native coronary artery without angina pectoris; I08.1 Rheumatic disorders of both mitral and tricuspid valves; Z11.59 Encounter for screening for other viral diseases; F41.9 Anxiety disorder, unspecified; I25.5 Ischemic cardiomyopathy; J45.20 Mild intermittent asthma, uncomplicated; B96.1 Klebsiella pneumoniae [K. pneumoniae] as the cause of diseases classified elsewhere; E78.5 Hyperlipidemia, unspecified; K22.70 Barrett's esophagus without dysplasia; G43.909 Migraine, unspecified, not intractable, without status migrainosus; D86.9 Sarcoidosis, unspecified; M81.0 Age-related osteoporosis without current pathological fracture; I83.93 Asymptomatic varicose veins of bilateral lower extremities; R59.0 Localized enlarged lymph nodes; G89.29 Other chronic pain; M54.9 Dorsalgia, unspecified; I25.2 Old myocardial infarction; R32 Unspecified urinary incontinence; M79.671 Pain in right foot; M79.89 Other specified soft tissue disorders; Z79.899 Other long term (current) drug therapy; Z90.710 Acquired absence of both cervix and uterus; Z98.1 Arthrodesis status; Z86.718 Personal history of other venous thrombosis and embolism; Z87.19 Personal history of other diseases of the digestive system; Z87.09 Personal history of other diseases of the respiratory system; Z98.890 Other specified postprocedural states; Z88.6 Allergy status to analgesic agent; Z88.1 Allergy status to other antibiotic agents; Z91.012 Allergy to eggs; Z91.02 Food additives allergy status; Z88.5 Allergy status to narcotic agent; Z88.0 Allergy status to penicillin; Z88.2 Allergy status to sulfonamides; Z88.7 Allergy status to serum and vaccine; Z91.018 Allergy to other foods; Z88.8 Allergy status to other drugs, medicaments and biological substances; Z91.011 Allergy to milk products; Z91.048 Other nonmedicinal substance allergy status; Y84.6 Urinary catheterization as the cause of abnormal reaction of the patient, or of later complication, without mention of misadventure at the time of the procedure; Y92.230 Patient room in hospital as the place of occurrence of the external cause; V98.8XXA Other specified transport accidents, initial encounter; Y92.239 Unspecified place in hospital as the place of occurrence of the external cause; Z83.3 Family history of diabetes mellitus; Z84.1 Family history of disorders of kidney and ureter
CPT/HCPCS: 31624; 36415; 36600; 71045; 71046; 71275; 80048; 80053; 80061; 80074; 81001; 82272; 82330; 82550; 82805; 83036; 83605; 83735; 83880; 84132; 84145; 84443; 84484; 85025; 85027; 85379; 85520; 85610; 85730; 86140; 86850; 86891; 86900; 86901; 86920; 87040; 87070; 87077; 87086; 87186; 92920; 92950; 93005; 93306; 93312; 93320; 93325; 93458; 93880; 93922; 93923; 93930; 93970; 94002; 94003; 94150; 96365; 96375; 96376; 99291